=== PATIENT | male | born 1975 | race Caucasian/White ===

== ENCOUNTER 2016-10-20 13:20 | Inpatient (IN) | payer BC ==
[2016-10-20] MEDS ORDERED: SODIUM CHLORIDE 0.9% 2,000 ML IV ONE (14:42)
[2016-10-20] MEDS ORDERED: KETOROLAC 30 MG/ML 1 ML VIAL IVP STA (14:42)
[2016-10-20] MEDS ORDERED: VANCOMYCIN 2,000 MG in SODIUM CHLORIDE 0.9% 500 ML IVPB STA (14:42)
[2016-10-20] MEDS ORDERED: IV VANCOMYCIN PER PHARMACY 1 EACH MISC MISCELLANE PRN (14:44)
--- NOTE | 2016-10-20 14:52 | ED ---
Upper Extremity HPI - General Chief Complaint: Extremity Injury, Upper Stated Complaint: hand swelling Time Seen by Provider: 10/20/16 14:22 Source: patient Mode of arrival: ambulatory Limitations: no limitations - History of Present Illness Initial Comments: Patient is a 41-year-old male who presents with a chief complaint of bilateral hand swelling, erythema, and skin cracking. Patient states that he has been dealing with this issue on and off for several months now. He cannot identify any trigger, he states that he has changed soaps, detergents, gloves, and moisturizers. Patient states that he has sharp, an achy pain in his bilateral hands. The swelling he states has been going on only today. He states that moving his hands, and manipulation of the skin make his symptoms worse. There are no alleviating factors. Timing is constant. Patient denies any IV drug use , or any history of skin infections. MD Complaint: Injury to:: left, right, hand Onset/Timin -: days(s) Other Extremity Injury: Hand: Left, Right (Patient has cracked skin that is erythematous, and warm to the touch.) Handedness: right Improves With: cold therapy Worsens With: movement of extremity - Related Data Home Medications Medication Instructions Recorded Confirmed No Known Home Medications [No 10/20/16 10/20/16 Known Home Medications] Allergies Allergy/AdvReac Type Severity Reaction Status Date / Time acetaminophen [From Lortab] Allergy Unknown Verified 10/20/16 14:54 hydrocodone [From Lortab] Allergy Rash/Hives Verified 10/20/16 14:54 Review of Systems ROS Statement: Those systems with pertinent positive or pertinent negative responses have been documented in the HPI. Patient denies any headache, dizziness, lightheadedness, visual changes, shortness of breath, chest pain, abdominal pain, nausea, vomiting, diarrhea, dysuria ROS Other: All systems not noted in ROS Statement are negative. Past Medical History Past Medical History: No Reported History History of Any Multi-Drug Resistant Organisms: None Reported Past Surgical History: Hernia Repair, Orthopedic Surgery Additional Past Surgical History / Comment(s): back surgery Past Psychological History: Depression Smoking Status: Former smoker Past Alcohol Use History: Rare Past Drug Use History: None Reported General Exam - General Exam Comments Initial Comments: Patient has pain, swelling, erythema, and skin cracks to the bilateral hands. Area of erythema is circumferential and extends just proximal to the wrists bilaterally. The left hand is more severe than the right. Patient has tenderness to palpation along the extensor tendon sheath. Limitations: no limitations General appearance: alert, in no apparent distress Head exam: Present: atraumatic, normocephalic Eye exam: Present: normal appearance ENT exam: Present: mucous membranes moist Neck exam: Present: normal inspection Respiratory exam: Present: normal lung sounds bilaterally Cardiovascular Exam: Present: regular rate, normal rhythm GI/Abdominal exam: Present: soft Rectal exam: Present: deferred Extremities exam: Present: other (Upper extremities as described above) Back exam: Present: normal inspection Neurological exam: Present: alert, oriented X3 Psychiatric exam: Present: normal affect, normal mood Skin exam: Present: erythema Course Vital Signs 10/20/16 10/20/16 10/20/16 13:24 15:17 16:41 Temperature 97.5 F L 97.3 F L Pulse Rate 82 74 72 Respiratory 18 16 16 Rate Blood Pressure 132/75 138/80 148/87 O2 Sat by Pulse 96 98 98 Oximetry Medical Decision Making - Medical Decision Making Patient presents with chief complaint bilateral hand swelling, erythema, and skin cracking. History and physical examination are concerning for tenosynovitis. We'll send basic labs, lactic, blood cultures. Patient was started on vancomycin and Rocephin. Patient will have bilateral upper extremity Dopplers. Plan to admit patient for IV antibiotics. Lab evaluation of this patient is unremarkable. Patient was started on antibiotics, at this point we are still pending bilateral ultrasound evaluation. I discussed this case with Dr. Espinoza who accepts admission of this patient for IV antibiotics, consult orthopedic surgery on-call. 4:35 PM Lab evaluation this patient is unremarkable. Left gases negative at 0.9. White blood cells are within normal limits. This time we are still waiting results of the upper extremity Doppler. Dr. Espinoza currently in the emergency department to examine the patient. 6:44 PM Upper extremity Dopplers did not show any evidence of acute DVT. This time patient remains stable, he is stable for transfer to the floor. Further management and orders per Dr. Espinoza. - Lab Data Result diagrams: 10/20/16 15:00 10/20/16 15:00 Lab Results 10/20/16 10/20/16 10/20/16 Range/Units 15:00 15:00 15:00 WBC 9.2 (3.8-10.6) k/uL RBC 4.88 (4.30-5.90) m/uL Hgb 15.1 (13.0-17.5) gm/dL Hct 42.7 (39.0-53.0) % MCV 87.7 (80.0-100.0) fL MCH 30.9 (25.0-35.0) pg MCHC 35.3 (31.0-37.0) g/dL RDW 13.0 (11.5-15.5) % Plt Count 333 (150-450) k/uL Neutrophils % 57 % Lymphocytes % 22 % Monocytes % 7 % Eosinophils % 11 % Basophils % 0 % Neutrophils # 5.3 (1.3-7.7) k/uL Lymphocytes # 2.0 (1.0-4.8) k/uL Monocytes # 0.6 (0-1.0) k/uL Eosinophils # 1.0 H (0-0.7) k/uL Basophils # 0.0 (0-0.2) k/uL Sodium 141 (137-145) mmol/L Potassium 4.1 (3.5-5.1) mmol/L Chloride 107 (98-107) mmol/L Carbon Dioxide 23 (22-30) mmol/L Anion Gap 11 mmol/L BUN 15 (9-20) mg/dL Creatinine 0.66 (0.66-1.25) mg/dL Est GFR (MDRD) Af Amer >60 (>60 ml/min/1.73 sqM) Est GFR (MDRD) Non-Af >60 (>60 ml/min/1.73 sqM) Glucose 85 (74-99) mg/dL Plasma Lactic Acid Kush[place] 0.9 (0.7-2.0) mmol/L Calcium 9.4 (8.4-10.2) mg/dL Disposition Clinical Impression: Tenosynovitis of hand Disposition: ADMITTED IP TO THIS HOSP Condition: Good Time of Disposition: 18:47 Decision to Admit Reason: Admit from [facility]
[2016-10-20 15:22] LABS: Basophils % (A) 0 %; CH 31.2; CHCM 35.8; Eosinophils % (A) 11 %; HCT 42.7 % (39.0-53.0); HDW 3.02; HGB 15.1 gm/dL (13.0-17.5); Luc # (Auto) 0.23; Luc % (Auto) 3; Lymphocytes % (A) 22 %; MCH 30.9 pg (25.0-35.0); MCHC 35.3 g/dL (31.0-37.0); MCV 87.7 fL (80.0-100.0); Monocytes # (A) 0.6 k/uL (0-1.0); Monocytes % (A) 7 %; Neutrophils # (A) 5.3 k/uL (1.3-7.7); Neutrophils % (A) 57 %; RBC 4.88 m/uL (4.30-5.90); WBC 9.2 k/uL (3.8-10.6); WBC (Perox) 8.87
[2016-10-20 15:29] LABS: Anion Gap 11 mmol/L; Blood Urea Nitrogen 15 mg/dL (9-20); Calcium 9.4 mg/dL (8.4-10.2); Carbon Dioxide 23 mmol/L (22-30); Chloride 107 mmol/L (98-107); Glucose 85 mg/dL (74-99); Non-African American GFR(MDRD) >60 (>60 ml/min/1.73 sqM); Potassium 4.1 mmol/L (3.5-5.1); Sodium 141 mmol/L (137-145)
[2016-10-20] MEDS ORDERED: NALOXONE 0.4 MG/ML 1 ML VIAL IV PRN (16:31)
--- NOTE | 2016-10-20 16:36 | US ---
EXAMINATION TYPE: US venous doppler duplex UE BI DATE OF EXAM: 10/20/2016 COMPARISON: NONE CLINICAL HISTORY: Pain. Left arm swelling x 1 day SIDE PERFORMED: bilateral Right Arm: No evidence of DVT Left Arm: No evidence of DVT IMPRESSION: No diagnostic evidence of DVT as visualized.
--- NOTE | 2016-10-20 17:36 | P.HPIM ---
History of Present Illness Patient is a 41-year-old male who presents with a chief complaint of bilateral hand swelling, erythema, and skin cracking. Patient states that he has been dealing with this issue on and off for several months now. All his symptoms started as [place] after which he started using gloves, topical cortisone cream and Aquaphor which led to skin breakdown in all the 5 fingertips in the left hand patient does have significant swelling in bilateral upper limbs extending from proximal forearm involving all the fingers. Does have redness and skin breakdown which peeled off without any bullous lesions or changes in the left 5 fingertips He cannot identify any trigger, he states that he has changed soaps , detergents, gloves, and moisturizers. Patient states that he has sharp, an achy pain in his bilateral hands. The swelling he states has been going on only today. He states that moving his hands, and manipulation of the skin make his symptoms worse. There are no alleviating factors. Timing is constant. Patient denies any IV drug use, or any history of skin infections. Review of Systems REVIEW OF SYSTEMS: CONSTITUTIONAL: No fever, no malaise, no fatigue. HEENT: No recent visual problems or hearing problems. Denied any sore throat. CARDIOVASCULAR: No chest pain, orthopnea, PND, no palpitations, no syncope. PULMONARY: No shortness of breath, no cough, no hemoptysis. GASTROINTESTINAL: No diarrhea, no nausea, no vomiting, no abdominal pain. Normoactive bowel sounds. NEUROLOGICAL: No headaches, no weakness, no numbness. HEMATOLOGICAL: Denies any bleeding or petechiae. GENITOURINARY: Denies any burning micturition, frequency, or urgency. MUSCULOSKELETAL/RHEUMATOLOGICAL: As mentioned in HPI ENDOCRINE: Denies any polyuria or polydipsia. The rest of the 14-point review of systems is negative. Past Medical History Past Medical History: No Reported History History of Any Multi-Drug Resistant Organisms: None Reported Past Surgical History: Hernia Repair, Orthopedic Surgery Additional Past Surgical History / Comment(s): back surgery Past Psychological History: Depression Smoking Status: Former smoker Past Alcohol Use History: Rare Past Drug Use History: None Reported Medications and Allergies Home Medications Medication Instructions Recorded Confirmed Type No Known Home Medications [No 10/20/16 10/20/16 History Known Home Medications] Allergies Allergy/AdvReac Type Severity Reaction Status Date / Time acetaminophen [From Lortab] Allergy Unknown Verified 10/20/16 14:54 hydrocodone [From Lortab] Allergy Rash/Hives Verified 10/20/16 14:54 Physical Exam Vitals: Vital Signs Temp Pulse Resp BP Pulse Ox 10/20/16 16:41 72 16 148/87 98 10/20/16 15:17 97.3 F L 74 16 138/80 98 10/20/16 13:24 97.5 F L 82 18 132/75 96 Intake and Output 10/20/16 10/20/16 10/20/16 06:59 14:59 22:59 Other: Weight 116.573 kg Patient Weight 10/21/16 06:59 Weight 116.573 kg PHYSICAL EXAMINATION: GENERAL: The patient is alert and oriented x3, not in any acute distress. Well developed, well nourished. HEENT: Pupils are round and equally reacting to light. EOMI. No scleral icterus. No conjunctival pallor. Normocephalic, atraumatic. No pharyngeal erythema. No thyromegaly. CARDIOVASCULAR: S1 and S2 present. No murmurs, rubs, or gallops. PULMONARY: Chest is clear to auscultation, no wheezing or crackles. ABDOMEN: Soft, nontender, nondistended, normoactive bowel sounds. No palpable organomegaly. MUSCULOSKELETAL: Mentioned in HPI. EXTREMITIES: No cyanosis, clubbing, or pedal edema. NEUROLOGICAL: Gross neurological examination did not reveal any focal deficits. SKIN: Mentioned in HPI Results CBC & Chem 7: 10/20/16 15:00 10/20/16 15:00 Labs: Abnormal Lab Results - Last 24 Hours (Table) 10/20/16 Range/Units 15:00 Eosinophils # 1.0 H (0-0.7) k/uL Assessment and Plan Plan: #1 possible tenosynovitis: Patient was started on anti-inflammatory medications arthritic surgery was consulted. #2 skin breakdown and possible cellulitis of the tips of 5 fingers on the left hand. Skin breakdown is probably secondary to chemicals like cortisone. Patient was started on vancomycin and infectious disease was consulted unfortunately we do not have any dermatology collection supervisor.
[2016-10-20] MEDS: KETOROLAC 30 MG/ML 1 ML VIAL IVP SCH ×2 (18:04→23:24)
--- NOTE | 2016-10-20 19:24 | P.CNOR ---
History of Present Illness - HPI Consult date: 10/20/16 History of present illness: This is a pleasant 41-year-old male who is admitted for tenosynovitis of bilateral hands. Patient states for the past 2 months he's had dry and cracking skin to the fingertips. Patient states he has treated this with several types of lotion and gloves and states in the morning the gloves have dried to his skin which causes re-injury to the skin when they are pulled off. Patient states this has never happened to him before. Patient states his hands and forearms have been very itchy. Patient states he's had weeping lesions on the hand as well. Patient states he never had any pain or swelling until today. Patient has also noticed that the itching has spread to his abdomen. This also has never happened before today. Patient confirms that he has some tingling to the fingers. Patient states he has difficulty making a fist with the left hand. Patient states the right hand is not in as much pain as the left. Patient states he went to urgent care when he noticed his left hand became very swollen and they sent him to the for evaluation. The EC admitted him for IV antibiotics. Dermatology and infectious disease consults are pending. Patient denies any fever, chills, IV drug use, history of MRSA or numbness in the hands. Patient states he does have pets at home but denies any cat bites or scratches. Review of Systems See HPI. Past Medical History Past Medical History: No Reported History History of Any Multi-Drug Resistant Organisms: None Reported Past Surgical History: Hernia Repair, Orthopedic Surgery Additional Past Surgical History / Comment(s): back surgery Past Psychological History: Depression Smoking Status: Former smoker Past Alcohol Use History: Rare Past Drug Use History: None Reported Medications and Allergies Home Medications Medication Instructions Recorded Confirmed Type No Known Home Medications [No 10/20/16 10/20/16 History Known Home Medications] Allergies Allergy/AdvReac Type Severity Reaction Status Date / Time acetaminophen [From Lortab] Allergy Unknown Verified 10/20/16 14:54 hydrocodone [From Lortab] Allergy Rash/Hives Verified 10/20/16 14:54 Physical Examination On inspection there is dry, cracked skin to the fingertips of the right and left hands. There are yellow crusty lesions to the volar aspect of the hand and fingertips. There are excoriations to bilateral hands and volar forearms. There is swelling to all of the fingers of the right and left hands extending to the mid forearms. The fingertips chriss. Left upper extremity is worse than the right. Bilateral hands are painful with active and passive range of motion. There is near full passive range of motion of the right upper extremity limited range of motion of the left hand. There is mild discomfort with range of motion of bilateral wrists. No pain with range of motion of the elbows bilaterally. Radial pulses are 2+ bilaterally. Sensation is intact. Results - Labs Labs: Abnormal Lab Results - Last 24 Hours (Table) 10/20/16 Range/Units 15:00 Eosinophils # 1.0 H (0-0.7) k/uL H & H 10/20/16 Range/Units 15:00 Hgb 15.1 (13.0-17.5) gm/dL Hct 42.7 (39.0-53.0) % Result Diagrams: 10/20/16 15:00 10/20/16 15:00 Assessment and Plan (1) Swelling of both hands Status: Acute (2) Pain in both hands Status: Acute Plan: 1. Continue IV antibiotics 2. Recommendations pending input from infectious disease and dermatology. 3. Will follow the patient closely. 4. No surgical intervention planned at this time.
[2016-10-20] MEDS: VANCOMYCIN 1,750 MG in SODIUM CHLORIDE 0.9% 250 ML IVPB SCH (23:25)
[2016-10-21] MEDS: KETOROLAC 30 MG/ML 1 ML VIAL IVP SCH ×4 (05:36→23:29)
[2016-10-21 07:28] LABS: Basophils # (A) 0.1 k/uL (0-0.2); Basophils % (A) 1 %; CH 31.1; CHCM 34.8; Eosinophils % (A) 13 %; HCT 42.7 % (39.0-53.0); HDW 3.01; HGB 14.8 gm/dL (13.0-17.5); Luc # (Auto) 0.16; Luc % (Auto) 2; Lymphocytes # (A) 1.2 k/uL (1.0-4.8); Lymphocytes % (A) 16 %; MCH 31.1 pg (25.0-35.0); MCHC 34.6 g/dL (31.0-37.0); MCV 89.9 fL (80.0-100.0); Mean Platelet Volume 6.9; Monocytes # (A) 0.4 k/uL (0-1.0); Monocytes % (A) 6 %; Neutrophils # (A) 4.6 k/uL (1.3-7.7); Neutrophils % (A) 62 %; RBC 4.75 m/uL (4.30-5.90); RDW 13.1 % (11.5-15.5); WBC 7.4 k/uL (3.8-10.6); WBC (Perox) 7.54
[2016-10-21] MEDS: VANCOMYCIN 1,750 MG in SODIUM CHLORIDE 0.9% 250 ML IVPB SCH ×2 (07:38→17:22)
[2016-10-21 07:51] LABS: Anion Gap 8 mmol/L; Blood Urea Nitrogen 12 mg/dL (9-20); Calcium 8.8 mg/dL (8.4-10.2); Carbon Dioxide 24 mmol/L (22-30); Chloride 108 mmol/L (98-107); Glucose 89 mg/dL (74-99); Non-African American GFR(MDRD) >60 (>60 ml/min/1.73 sqM); Sodium 140 mmol/L (137-145)
--- NOTE | 2016-10-21 08:41 | P.PN ---
Subjective Principal diagnosis: Swelling and erythema of bilateral hands This is a 41-year-old male was admitted for swelling of bilateral hands. Patient was seen and evaluated at [facility] with Dr. Gume Cuellar today. Patient states he has not noticed any improvement today and still has pain with range of motion of the right and left hands. Left hand is worse than right. Patient has no new complaints today. Patient denies fever/chills. Objective - Vital Signs Vital signs: Vital Signs Temp 97.6 F 10/21/16 03:19 Pulse 81 10/21/16 03:19 Resp 16 10/21/16 03:19 BP 127/70 10/21/16 03:19 Pulse Ox 97 10/21/16 03:19 Intake & Output 10/20/16 10/21/16 10/21/16 18:59 06:59 18:59 Intake Total 236 850 180 Output Total 500 Balance 236 350 180 Weight 116.573 kg Intake: Oral 236 850 180 Output: Urine 500 Other: # Voids 1 - Exam Bilateral hands with swelling extending to bilateral forearms. Crusting to all fingertips and volar aspects of hands. Excoriations to bilateral hands and volar forearms. Erythema to bilateral hands. Limited range of motion of the left hand. Range of motion of the right hand is limited but better than the left hand. Neurovascular status intact. - Labs CBC & Chem 7: 10/21/16 06:54 10/21/16 06:54 Labs: Abnormal Lab Results - Last 24 Hours (Table) 10/20/16 10/21/16 10/21/16 Range/Units 15:00 06:54 06:54 Eosinophils # 1.0 H 1.0 H (0-0.7) k/uL Chloride 108 H (98-107) mmol/L Creatinine 0.59 L (0.66-1.25) mg/dL Assessment and Plan (1) Swelling of both hands Status: Acute (2) Pain in both hands Status: Acute Plan: 1. Continue IV antibiotics 2. Recommendations pending input from infectious disease. 3. Will follow the patient closely. 4. No surgical intervention planned at this time.
[2016-10-21] MEDS ORDERED: traMADol 50 MG TAB PO PRN ×2 (09:51→09:55)
--- NOTE | 2016-10-21 18:36 | P.CONS ---
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 The patient relates that he's developed significant dry skin. He does have areas of patchy dry skin on his forearms and even his abdomen that have come and gone over time. He has no specific diagnosis. He was utilizing moisturizers and gloves to help with significant dryness to his hand. Even U Amanda combination of [id number] steroid cream and moisturizer. Reported admission he had tried this as before and when he took the glove off the material had tried and it was hand and he cussed significant injury to the skin with open wounds. He became painful and swollen with erythema. And because of his difficulty with utilizing his hand he did present to the walk-in clinic and with the extensive nature of the process in his left hand he was directed emergency center and has been admitted. He has been seen by orthopedics no plan for surgical intervention. And because of the abnormalities of the tissue with the infectious diseases consultation was requested. It is noted that dermatology was consulted but are not available. The patient is denying fevers chills rigors or sweats. He has discomfort at the site with good control with the ketorolac. He relates he's had intermittent difficulty with dry skin over the years. But this is far above the worst she's ever had. He is not able to make a fist because the hand is so swollen. It is quite uncomfortable. Review of Systems Pleasant 41-year-old male who is overweight but is comfortable. Does complain of the pain to his left hand. Also some pruritus to the forearms and abdominal wall HEENT:Denies headache or acute visual change. Denies sinus or mouth discomforts. Denies neck stiffness or pain. Denies significant oral cavity pain. Denies difficulty on swallowing. Lungs: Denies significant shortness of breath, cough, sputum production, or hemoptysis. Cardiovascular: Denies significant shortness of breath, chest pain, chest wall pain, orthopnea, dyspnea on exertion, syncope Gastrointestinal:Denies nausea, vomiting, diarrhea, constipation, hematemesis, melena, hematochezia. No no significant change of bowel habit noticed. Musculoskeletal: denies significant myalgias or arthralgias. No new joint swelling. Denies new back pain. Skin: D as per the HPI significant rash Neuro: Denies headache or visual change. Denies any new onset weakness or difficulty with ambulation. Denies falls or seizures. Psychiatric:Denies anxiety or depression. Endocrine: Denies significant fatigue, denies significant weight loss or weight gain. Past Medical History Past Medical History: No Reported History Additional Past Medical History / Comment(s): occ asthma flare ups, brobchitis History of Any Multi-Drug Resistant Organisms: None Reported Past Surgical History: Hernia Repair, Orthopedic Surgery Additional Past Surgical History / Comment(s): back surgery Past Anesthesia/Blood Transfusion Reactions: No Reported Reaction Additional Psychological History / Comment(s): . There is no family home with the and his children in the 6 cats. 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 No experience. No international travel. No current tobacco use it's been years since he smoked. Denies significant alcohol use. Denies recreational drug use or injection drug use. At work there's been no change of materials. He does not immerse hands and any chemicals or dyes. No change of materials at home. Parents are alive and well nobody has significant skin lesions Smoking Status: Former smoker - Past Family History Father Family Medical History: Hypertension Mother Family Medical History: Cancer, Hypertension Additional Family Medical History / Comment(s): UTERINE CANCER Medications and Allergies Home Medications and Allergies Comment(s): Current Medications Vancomycin HCl 1,750 mg/ (Sodium Chloride) 250 mls @ 125 mls/hr IVPB Q8HR [facility] Last Admin: 10/21/16 17:22 Dose: 125 mls/hr Ketorolac Tromethamine (Toradol) 30 mg IVP Q6HR MIKE Stop: 10/24/16 16:34 Last Admin: 10/21/16 17:23 Dose: 30 mg Miscellaneous Information (Vancomycin Trough Due) 1 each MISCELLANE ONCE ONE Stop: 10/22/16 07:01 Naloxone HCl (Narcan) 0.2 mg IV Q2M PRN PRN Reason: Opioid Reversal Tramadol HCl (Ultram) 50 mg PO QID PRN PRN Reason: Pain Scale 1 to 5 Last Admin: 10/21/16 10:00 Dose: 50 mg Tramadol HCl (Ultram) 100 mg PO QID PRN PRN Reason: Pain Scale 6 to 10 Home Medications Medication Instructions Recorded Confirmed Type No Known Home Medications [No 10/20/16 10/20/16 History Known Home Medications] Allergies Allergy/AdvReac Type Severity Reaction Status Date / Time acetaminophen [From Lortab] Allergy Unknown Verified 10/20/16 14:54 hydrocodone [From Lortab] Allergy Rash/Hives Verified 10/20/16 14:54 Physical Exam Vitals: Vital Signs Temp Pulse Pulse Resp BP Pulse Ox 10/21/16 13:52 98.6 F 72 16 121/67 96 10/21/16 07:00 98.0 F 86 18 133/73 96 10/21/16 03:19 97.6 F 81 16 127/70 97 10/20/16 20:10 97.6 F 72 17 151/87 97 Intake and Output 10/21/16 10/21/16 10/21/16 06:59 14:59 22:59 Intake Total 250 400 Balance 250 400 Intake: Oral 250 400 Other: # Voids 1 3 Very pleasant 41-year-old male who has an overweight build. He over is not in acute distress although does complain of some pain to the left hand area. HEENT: Anicteric conjunctiva are pink and moist nasal mucosa grossly intact without significant lesions, there is no thrush. Neck: The neck is supple without significant lymphadenopathy or thyromegaly. Lungs: Good bilateral air entry without significant crackles or wheezing. There is no significant bronchial sounds. There is no egophony or dullness. Heart: Regular rate and rhythm with an audible S1-S2, no S3 no S4. There is no significant murmur click or rub, PMI was nondisplaced. Abdomen: Positive bowel sounds soft and nontender without palpable masses or organomegaly. There was no guarding or rebound. Extremities: The right upper extremity has evidence of some minimal swelling to the right hand. There are no stiffing open lesions but the skin is somewhat dry. Does have a dry scaly type rash on the dorsum of the forearm. No open lesions are seen. There is no evidence of epitrochlear or axillary lymphadenopathy of either arm. The left arm is much more involved. The hand is swollen erythematous has evidence of significant breakdown of the skin on the palmar surface of the hand. There is some minimal drainage. The skin has a whitish discoloration in this area. Evidence of erythema to the dorsum of the hand. He is not able to make a fist due to the swelling. The forearm also has a bit of a dry scaly rash. No adenopathy is noted on the left arm or in other areas. The lower extremities are free from significant edema. The peripheral pulses were 2+ and symmetric. The skin does show evidence of this rash process on the forearms as well as abdominal wall it is pruritic. He is evidence of some dry skin on the right foot plantar surface with some skin cracking at the base of the third toe. There is no cellulitis or ascending erythema on either lower extremity. Neuro: Awake alert oriented to person place and time. There are no acute new gross focal sensory motor deficits. Results CBC & Chem 7: 10/21/16 06:54 10/21/16 06:54 Labs: Abnormal Lab Results - Last 24 Hours (Table) 10/21/16 10/21/16 Range/Units 06:54 06:54 Eosinophils # 1.0 H (0-0.7) k/uL Chloride 108 H (98-107) mmol/L Creatinine 0.59 L (0.66-1.25) mg/dL C Laboratory Results WBC 7.4 k/uL (3.8-10.6) 10/21/16 06:54 RBC 4.75 m/uL (4.30-5.90) 10/21/16 06:54 Hgb 14.8 gm/dL (13.0-17.5) 10/21/16 06:54 Hct 42.7 % (39.0-53.0) 10/21/16 06:54 MCV 89.9 fL (80.0-100.0) 10/21/16 06:54 MCH 31.1 pg (25.0-35.0) 10/21/16 06:54 MCHC 34.6 g/dL (31.0-37.0) 10/21/16 06:54 RDW 13.1 % (11.5-15.5) 10/21/16 06:54 Plt Count 283 k/uL (150-450) 10/21/16 06:54 Neutrophils % 62 % 10/21/16 06:54 Lymphocytes % 16 % 10/21/16 06:54 Monocytes % 6 % 10/21/16 06:54 Eosinophils % 13 % 10/21/16 06:54 Basophils % 1 % 10/21/16 06:54 Neutrophils # 4.6 k/uL (1.3-7.7) 10/21/16 06:54 Lymphocytes # 1.2 k/uL (1.0-4.8) 10/21/16 06:54 Monocytes # 0.4 k/uL (0-1.0) 10/21/16 06:54 Eosinophils # 1.0 k/uL (0-0.7) H 10/21/16 06:54 Basophils # 0.1 k/uL (0-0.2) 10/21/16 06:54 Sodium 140 mmol/L (137-145) 10/21/16 06:54 Potassium 4.0 mmol/L (3.5-5.1) 10/21/16 06:54 Chloride 108 mmol/L (98-107) H 10/21/16 06:54 Carbon Dioxide 24 mmol/L (22-30) 10/21/16 06:54 Anion Gap 8 mmol/L 10/21/16 06:54 BUN 12 mg/dL (9-20) 10/21/16 06:54 Creatinine 0.59 mg/dL (0.66-1.25) L 10/21/16 06:54 Est GFR (MDRD) Af Amer >60 (>60 ml/min/1.73 sqM) 10/21/16 06:54 Est GFR (MDRD) Non-Af >60 (>60 ml/min/1.73 sqM) 10/21/16 06:54 Glucose 89 mg/dL (74-99) 10/21/16 06:54 Plasma Lactic Acid Kushal 0.9 mmol/L (0.7-2.0) 10/20/16 15:00 Calcium 8.8 mg/dL (8.4-10.2) 10/21/16 06:54 Assessment and Plan (1) Hand dermatitis Status: Acute (2) Cellulitis of left hand Narrative/Plan: Pleasant 41-year-old male presents to Hospital with significant pain and swelling erythema to the left hand. Does have a history of some chronicity that did not respond to outpatient treatments of moisturization and topical steroids. He's had damage to the tissue of the hand and has resultant cellulitis. The patient does not have a known history of MRSA and we'll alter to high-dose cefazolin while cultures are pending. The patient likely has a progressively worsening dermatitis. And given the involvement of the forearms and abdomen more of a systemic concern. The blood work is benign. At this time treatment for underlying infected dermatitis will continue. Given the extensive nature some intravenous steroid will be given as well as intravenous fluconazole for now. Local care with the nystatin triamcinolone mixed will be utilized to the hands as well as to the right foot and to the rash on the forearms and abdomen. The pruritus is not the over riding symptom discomfort is much more significant left hand. Status: Acute
[2016-10-21] MEDS ORDERED: NYSTAT-TRIAMCIN 100,000-0.1 UNIT/GM-% OINT 30 GM TUBE TOPICAL SCH (18:45)
[2016-10-21] MEDS ORDERED: FLUCONAZOLE 100 MG TAB PO SCH (18:45)
[2016-10-21 19:28] LABS: C Reactive Protein 13.5 mg/L (<10.0)
[2016-10-21] MEDS: ceFAZolin 2 GM in SODIUM CHLORIDE 0.9% 100 ML IVPB SCH (19:52)
[2016-10-21] MEDS: TRIAMCINOLONE ACET 0.1% OINTMENT 15 GM TUBE TOPICAL SCH ×2 (19:52→21:59)
[2016-10-21] MEDS: methylPREDNISolone SOD SUCCI 40 MG/ML 1 ML VIAL IV SCH ×2 (19:52→23:29)
[2016-10-21] MEDS: NYSTATIN 100,000 UNIT/GM OINT 30 GM TUBE TOPICAL SCH ×2 (19:52→22:00)
[2016-10-21 20:47] LABS: Hemoglobin A1C 5.4 % (4.2-6.1)
[2016-10-22] MEDS: ceFAZolin 2 GM in SODIUM CHLORIDE 0.9% 100 ML IVPB SCH ×2 (00:01→07:13)
[2016-10-22 01:29] VITALS: RESP 16
[2016-10-22] MEDS: KETOROLAC 30 MG/ML 1 ML VIAL IVP SCH ×2 (05:07→11:31)
[2016-10-22] MEDS ORDERED: VANCOMYCIN TROUGH DUE 1 EACH MISC MISCELLANE ONE (07:00)
[2016-10-22] MEDS: methylPREDNISolone SOD SUCCI 40 MG/ML 1 ML VIAL IV SCH (07:13)
[2016-10-22] MEDS: TRIAMCINOLONE ACET 0.1% OINTMENT 15 GM TUBE TOPICAL SCH (07:14)
[2016-10-22] MEDS: NYSTATIN 100,000 UNIT/GM OINT 30 GM TUBE TOPICAL SCH (07:15)
--- NOTE | 2016-10-22 08:24 | P.PN ---
Subjective Principal diagnosis: Swelling and erythema of bilateral hands This is a 41-year-old male is admitted for swelling of bilateral hands. Patient states he has noticed improvement in range of motion of the left hand along with less pain and less swelling to bilateral hands. Patient states he has been up and walking in his room and denies any calf tenderness or swelling. Patient denies any numbness, weakness, tingling. Patient has no new complaints today. Patient denies fever/chills. Objective - Vital Signs Vital signs: Vital Signs Temp 98.2 F 10/22/16 01:28 Pulse 71 10/22/16 01:28 Resp 16 10/22/16 01:28 BP 122/69 10/22/16 01:28 Pulse Ox 93 L 10/22/16 01:28 Intake & Output 10/21/16 10/22/16 10/22/16 18:59 06:59 18:59 Intake Total 640 220 Output Total 500 Balance 140 220 Intake: Oral 640 220 Output: Urine 500 Other: Voiding Method Toilet # Voids 3 1 - Exam Bilateral hands with swelling extending to bilateral forearms that has slightly improved today. Crusting persists to all fingertips and volar aspects of hands. Excoriations to bilateral hands and volar forearms. Erythema to bilateral hands. Range of motion of the left hand is still limited but has improved since yesterday's exam. Range of motion of the right hand has improved as well. Neurovascular status intact. Radial pulses 2+ bilaterally. There is still a red, dry pruritic rash to the patient's abdomen. - Labs CBC & Chem 7: 10/21/16 06:54 10/21/16 06:54 Labs: Abnormal Lab Results - Last 24 Hours (Table) 10/21/16 Range/Units 06:54 C-Reactive Protein 13.5 H (<10.0) mg/L Microbiology - Last 24 Hours (Table) 10/20/16 17:25 Blood Culture - Preliminary Blood No Growth after 24 hours Assessment and Plan (1) Swelling of both hands Status: Acute (2) Pain in both hands Status: Acute Plan: 1. Continue IV antibiotics, IV steroids and topical creams per infectious disease. 2. Will continue to follow the patient closely. 3. No surgical intervention planned at this time.
[2016-10-22 13:44] VITALS: BP 140/65; PULSE 104; TEMP 97.5
--- NOTE | 2016-10-22 16:03 | P.PN ---
Subjective 41-year-old woman was admitted for a lateral upper limb swelling along with diffuse rash secondary to some kind of dermatitis etiology not clear along with skin breakdown in tip of all 5 fingers of the left hand leading to infection and cellulitis for which patient is presently on Keflex and patient is on systemic steroids for his rash in bilateral upper limb swelling patient was alert and infectious disease as well as orthopedic surgery. Objective - Vital Signs Vital signs: Vital Signs Temp 97.5 F L 10/22/16 13:43 Pulse 104 H 10/22/16 13:43 Resp 16 10/22/16 13:43 BP 140/65 10/22/16 13:43 Pulse Ox 91 L 10/22/16 13:43 Intake & Output 10/21/16 10/22/16 10/22/16 18:59 06:59 18:59 Intake Total 640 470 Output Total 500 Balance 140 470 Intake: Oral 640 470 Output: Urine 500 Other: Voiding Method Toilet # Voids 3 1 - Exam GENERAL: The patient is alert and oriented x3, not in any acute distress. Well developed, well nourished. HEENT: Pupils are round and equally reacting to light. EOMI. No scleral icterus. No conjunctival pallor. Normocephalic, atraumatic. No pharyngeal erythema. No thyromegaly. CARDIOVASCULAR: S1 and S2 present. No murmurs, rubs, or gallops. PULMONARY: Chest is clear to auscultation, no wheezing or crackles. ABDOMEN: Soft, nontender, nondistended, normoactive bowel sounds. No palpable organomegaly. MUSCULOSKELETAL: Mentioned in HPI. EXTREMITIES: No cyanosis, clubbing, or pedal edema. NEUROLOGICAL: Gross neurological examination did not reveal any focal deficits. SKIN: Mentioned in HPI - Labs CBC & Chem 7: 10/21/16 06:54 10/21/16 06:54 Labs: Abnormal Lab Results - Last 24 Hours (Table) 10/21/16 Range/Units 06:54 C-Reactive Protein 13.5 H (<10.0) mg/L Microbiology - Last 24 Hours (Table) 10/20/16 17:25 Blood Culture - Preliminary Blood No Growth after 24 hours Assessment and Plan Plan: #1 cellulitis of the left hand: Patient is an ceftezole and with significant improvement in his alertness. 2 possible dermatitis: Etiology is unclear. She will need out for patient need follow-up with dermatology For the obesity counseling was provided.
--- NOTE | 2016-10-22 16:05 | P.DS ---
Providers Date of admission: 10/20/16 16:31 Attending physician: Amarilys Espinoza Consults: 10/20/16 15:43 Consult Physician Routine Consulting Provider: Tonya Coon Consult Reason/Comments: tenosynovitis of the hand Do you want consulting provider notified?: Yes 10/20/16 17:33 Consult Physician Routine Consulting Provider: Angelica Hooks Consult Reason/Comments: tynosynovitis Do you want consulting provider notified?: Already Contacted Primary care physician: Marie Cervantes [facility] Course: 41-year-old woman was admitted for a lateral upper limb swelling along with diffuse rash secondary to some kind of dermatitis etiology not clear along with skin breakdown in tip of all 5 fingers of the left hand leading to infection and cellulitis for which patient is presently on Keflex and patient is on systemic steroids for his rash in bilateral upper limb swelling patient was alert and infectious disease as well as orthopedic surgery. Patient will be discharged today with antifungal, Keflex, Medrol Dosepak and follow with dermatology and infectious disease as an outpatient. Patient Condition at Discharge: Good Plan - Discharge Summary New Discharge Prescriptions: New Cephalexin [Keflex] 500 mg PO Q8HR #30 cap Fluconazole [Diflucan] 200 mg PO DAILY@1800 #10 tab methylPREDNISolone Dose Pack [Medrol Dose Pack] 4 mg PO DIRECTED #21 package Discharge Medication List Cephalexin [Keflex] 500 mg PO Q8HR #30 cap 10/22/16 [Rx] Fluconazole [Diflucan] 200 mg PO DAILY@1800 #10 tab 10/22/16 [Rx] methylPREDNISolone Dose Pack [Medrol Dose Pack] 4 mg PO DIRECTED #21 package 10/22/16 [Rx] Follow up Appointment(s)/Referral(s): Pete Figueroa MD [STAFF PHYSICIAN] - 1 Week Luke Griffin MD [STAFF PHYSICIAN] - 1 Week Marie Cervantes MD [Primary Care Provider] - 3 Days Activity/Diet/Wound Care/Special Instructions: Return to work no working with chemicals 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
== END 2016-10-22 14:45 | disposition home or self-care (01) | DRG 603 ==
LOC: EC 13:20 → 3SUR 16:31
PROVIDERS: ADMIT Internal Medicine; ATTEND Internal Medicine
DX: L03.114 Cellulitis of left upper limb (principal); F32.9 Major depressive disorder, single episode, unspecified; M65.9 Synovitis and tenosynovitis, unspecified; Z87.891 Personal history of nicotine dependence; L30.9 Dermatitis, unspecified; J45.909 Unspecified asthma, uncomplicated; E66.9 Obesity, unspecified; Z68.34 Body mass index [BMI] 34.0-34.9, adult; Z71.3 Dietary counseling and surveillance
CPT/HCPCS: 36415; 80048; 83036; 83605; 84134; 85025; 85652; 86038; 86140; 86780; 87040; 93970; 96361; 96365; 96375; 99284

== ENCOUNTER 2018-04-21 15:21 | Emergency (ER) | payer BC ==
[2018-04-21 15:27] VITALS: RESP 18; TEMP 98
[2018-04-21] MEDS ORDERED: KETOROLAC 30 MG/ML 1 ML VIAL IVP STA (15:38)
[2018-04-21 15:48] LABS: Basophils # (A) 0.1 k/uL (0-0.2); Basophils % (A) 1 %; Eosinophils # (A) 0.7 k/uL (0-0.7); Eosinophils % (A) 7 %; HCT 43.9 % (39.0-53.0); HGB 15.5 gm/dL (13.0-17.5); Lymphocytes % (A) 30 %; MCH 31.4 pg (25.0-35.0); MCHC 35.2 g/dL (31.0-37.0); Mean Platelet Volume 6.8; Monocytes # (A) 0.6 k/uL (0-1.0); Monocytes % (A) 6 %; Neutrophils # (A) 5.4 k/uL (1.3-7.7); Neutrophils % (A) 54 %; Platelet Count 341 k/uL (150-450); RBC 4.93 m/uL (4.30-5.90); RDW 13.2 % (11.5-15.5); WBC 9.9 k/uL (3.8-10.6)
[2018-04-21 15:58] LABS: ALT 41 U/L (21-72); AST 29 U/L (17-59); Albumin 4.4 g/dL (3.5-5.0); Alkaline Phosphatase 47 U/L (38-126); Amylase 72 U/L (30-110); Anion Gap 10 mmol/L; Blood Urea Nitrogen 14 mg/dL (9-20); Calcium 9.6 mg/dL (8.4-10.2); Carbon Dioxide 24 mmol/L (22-30); Chloride 106 mmol/L (98-107); Glucose 108 mg/dL (74-99); Lipase 183 U/L (23-300); Magnesium 1.7 mg/dL (1.6-2.3); Potassium 3.8 mmol/L (3.5-5.1); Sodium 140 mmol/L (137-145); Total Bilirubin 0.8 mg/dL (0.2-1.3); Total Protein 7.8 g/dL (6.3-8.2)
[2018-04-21 16:01] LABS: Creatine Kinase 219 U/L (55-170)
--- NOTE | 2018-04-21 16:05 | XR ---
EXAMINATION TYPE: XR chest 2V DATE OF EXAM: 04/21/2018 COMPARISON: NONE HISTORY: Chest pain with exertion TECHNIQUE: Frontal and lateral views of the chest are obtained. FINDINGS: There is no focal air space opacity, pleural effusion, or pneumothorax seen. The cardiac silhouette size is within normal limits. The osseous structures are intact. Minimal eventration rig ht hemidiaphragm. IMPRESSION: No acute cardiopulmonary process.
[2018-04-21 16:14] LABS: Creatine Kinase MB 2.2 ng/mL (0.0-2.4); D-Dimer 0.29 mg/L FEU (<0.60); Partial Thromboplastin Time 27.9 sec (22.0-30.0); Prothrombin Time 10.8 sec (9.0-12.0); Troponin I <0.012 ng/mL (0.000-0.034)
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
[2018-04-21 16:46] VITALS: BP 129/80; PULSE 72
== END 2018-04-21 16:47 | disposition home or self-care (01) ==
LOC: EC 15:21
DX: M94.0 Chondrocostal junction syndrome [Tietze] (principal); J45.909 Unspecified asthma, uncomplicated; Z79.899 Other long term (current) drug therapy; Z88.5 Allergy status to narcotic agent; Z88.6 Allergy status to analgesic agent; Z87.891 Personal history of nicotine dependence
CPT/HCPCS: 36415; 93005; 85379; 83880; 80053; 82150; 82550; 82553; 83690; 83735; 84484; 85025; 85610; 85730; 71046; 99285; 96374; J1885

== ENCOUNTER 2019-03-13 10:48 | Inpatient (IN) | payer BC ==
[2019-03-13] MEDS ORDERED: ALBUTEROL NEBULIZED 2.5 MG/3 ML INHALATION STA (10:54)
[2019-03-13] MEDS ORDERED: IPRATROPIUM 0.5 MG/2.5 ML NEBU INHALATION STA (10:55)
[2019-03-13] MEDS ORDERED: SODIUM CHLORIDE 0.9% 1,000 ML IV STA (10:56)
[2019-03-13] MEDS ORDERED: MAGNESIUM SULFATE-D5W PMX 1 GM in DEXTROSE/WATER 1 100ML.BAG IVPB STA (10:56)
[2019-03-13] MEDS ORDERED: methylPREDNISolone SOD SUCCI 125 MG/2 ML VIAL IV STA (10:56)
[2019-03-13] MEDS ORDERED: IBUPROFEN 600 MG TAB PO STA (10:59)
[2019-03-13] MEDS ORDERED: AZITHROMYCIN 500 MG in SODIUM CHLORIDE 0.9% 250 ML IVPB STA (11:01)
--- NOTE | 2019-03-13 11:12 | ED ---
SOB HPI - General Chief Complaint: Shortness of Breath Stated Complaint: Asthma attack, SOB Time Seen by Provider: 03/13/19 10:55 Source: EMS Mode of arrival: EMS Limitations: no limitations - History of Present Illness Initial Comments: The patient is a 43-year-old male with past medical history of mild intermittent asthma who presents to the emergency Department in respiratory distress. He reports that he has had 2 visits to an urgent care recently for cough and shortness of breath. The first time he was diagnosed with bronchitis and started on steroids. He then returned 2 days later and they initiated him on Keflex. He states he has been taking the medications as directed. He hasn't had any improvement. EMS arrived to find the patient saturating 77% on room air. He did provide him with 2 albuterol treatments and Atrovent treatment. They're only able to get him up to 88% on 4 L. He admits to chills without recorded fevers. Does not currently smoke. States he's never had an issue with his breathing before. He has never been on life support and normally does not have to come into the hospital for surgery distress. Denies any sick contacts. No recent travel. Denies any calf pain or swelling. No history of DVT or PE. Denies nausea or vomiting. No ripping or tearing sensation to his back. Admits to chest pressure without. There are no alleviating, precipitating or modifying factors - Related Data Home Medications Medication Instructions Recorded Confirmed Albuterol Inhaler [Ventolin Hfa 2 puff INHALATION RT-Q6H PRN 04/21/18 03/13/19 Inhaler] Albuterol Nebulized [Ventolin 2.5 mg INHALATION RT-TID PRN 04/21/18 03/13/19 Nebulized] Montelukast Sodium [Singulair] 10 mg PO HS 04/21/18 03/13/19 Benzonatate [Tessalon Perles] 100 mg PO TID PRN 03/13/19 03/13/19 Cephalexin [Keflex] 500 mg PO TID 03/13/19 03/13/19 Allergies Allergy/AdvReac Type Severity Reaction Status Date / Time hydrocodone [From Lortab] Allergy Rash/Hives Verified 03/13/19 11:58 Review of Systems ROS Statement: Those systems with pertinent positive or pertinent negative responses have been documented in the HPI. ROS Other: All systems not noted in ROS Statement are negative. Past Medical History Past Medical History: Asthma Additional Past Medical History / Comment(s): occ asthma flare ups, brobchitis History of Any Multi-Drug Resistant Organisms: None Reported Past Surgical History: Hernia Repair, Orthopedic Surgery Additional Past Surgical History / Comment(s): back surgery Past Anesthesia/Blood Transfusion Reactions: No Reported Reaction Past Psychological History: Depression Smoking Status: Former smoker Past Alcohol Use History: None Reported Past Drug Use History: None Reported - Past Family History Father Family Medical History: Hypertension Mother Family Medical History: Cancer, Hypertension Additional Family Medical History / Comment(s): UTERINE CANCER General Exam Limitations: no limitations General appearance: alert, in distress Head exam: Present: atraumatic, normocephalic Eye exam: Present: normal appearance, PERRL, EOMI. Absent: scleral icterus, conjunctival injection, periorbital swelling ENT exam: Present: normal exam, mucous membranes moist Respiratory exam: Present: respiratory distress, wheezes, accessory muscle use, decreased breath sounds, prolonged expiratory Cardiovascular Exam: Present: normal rhythm, tachycardia GI/Abdominal exam: Present: soft. Absent: distended, tenderness, guarding, rebound Extremities exam: Present: normal inspection, full ROM Back exam: Present: normal inspection, full ROM Neurological exam: Present: alert, oriented X3 Psychiatric exam: Present: normal affect, normal mood, anxious Skin exam: Present: warm, intact, diaphoretic Course Vital Signs 03/13/19 03/13/19 03/13/19 10:55 10:58 11:14 Temperature 101.6 F H Pulse Rate 131 H 130 H 133 H Pulse Rate [ Right Pulse Oximetery] Respiratory 28 H Rate Blood Pressure 116/92 Blood Pressure [Right Arm] O2 Sat by Pulse 91 L Oximetry 03/13/19 03/13/19 03/13/19 11:45 12:05 12:30 Temperature Pulse Rate 131 H 133 H 114 H Pulse Rate [ Right Pulse Oximetery] Respiratory 20 Rate Blood Pressure 129/105 Blood Pressure [Right Arm] O2 Sat by Pulse 95 Oximetry 03/13/19 03/13/19 03/13/19 13:00 13:30 14:00 Temperature Pulse Rate 114 H 103 H 99 Pulse Rate [ Right Pulse Oximetery] Respiratory Rate Blood Pressure 122/86 124/79 131/87 Blood Pressure [Right Arm] O2 Sat by Pulse 95 95 95 Oximetry 03/13/19 03/13/19 03/13/19 14:30 15:00 15:30 Temperature Pulse Rate 97 84 86 Pulse Rate [ Right Pulse Oximetery] Respiratory Rate Blood Pressure 123/90 124/85 132/92 Blood Pressure [Right Arm] O2 Sat by Pulse 94 L 95 95 Oximetry 03/13/19 03/13/19 03/13/19 15:42 15:54 16:00 Temperature 98.1 F Pulse Rate 82 87 Pulse Rate [ 84 Right Pulse Oximetery] Respiratory 20 20 Rate Blood Pressure Blood Pressure 109/66 [Right Arm] O2 Sat by Pulse 91 L Oximetry 03/13/19 16:10 Temperature 99.2 F Pulse Rate Pulse Rate [ Right Pulse Oximetery] Respiratory Rate Blood Pressure Blood Pressure [Right Arm] O2 Sat by Pulse Oximetry Medical Decision Making - Medical Decision Making Upon arrival the patient is placed into trauma bay 2. He is hooked up to ontinuous pulse ox and cardiac monitoring. Peripheral IV had been established by EMS. I did give him 125 mg of Solu-Medrol, 1 g of magnesium and a liter bolus of normal saline. Laboratory studies were conducted. The patient is placed on 15 mg of albuterol continuously. CBC shows white blood cell count 13.3. D-dimer elevated at 1.08, elevation in the patient's AST, ALC and alk phos. Influenza A and B are negative. Portable chest x-ray performed on the patient demonstrated bibasilar opacities. Chest CTA is performed because of elevated d-dimer which demonstrates no acute pulmonary embolism. Bibasilar consolidations. Cultures were obtained. The patient was given a dose of azithromycin and Rocephin. I did recommend hospital admission for the patient did agree. I called and discussed the case with Dr. Roth who accepted admission. I also called and discussed the case with Dr. Maria who does present to the emergency room to evaluate the patient. Patient remained in stable condi tion and was transported to the floor - Lab Data Result diagrams: 03/17/19 05:22 03/17/19 05:22 Lab Results 03/13/19 03/13/19 03/13/19 Range/Units 11:15 11:15 11:15 WBC 13.3 H (3.8-10.6) k/uL RBC 4.65 (4.30-5.90) m/uL Hgb 14.4 (13.0-17.5) gm/dL Hct 41.4 (39.0-53.0) % MCV 88.9 (80.0-100.0) fL MCH 30.9 (25.0-35.0) pg MCHC 34.8 (31.0-37.0) g/dL RDW 12.8 (11.5-15.5) % Plt Count 497 H (150-450) k/uL Neutrophils % 76 % Lymphocytes % 13 % Monocytes % 7 % Eosinophils % 2 % Basophils % 1 % Neutrophils # 10.0 H (1.3-7.7) k/uL Lymphocytes # 1.7 (1.0-4.8) k/uL Monocytes # 0.9 (0-1.0) k/uL Eosinophils # 0.2 (0-0.7) k/uL Basophils # 0.1 (0-0.2) k/uL PT 10.7 (9.0-12.0) sec INR 1.0 (<1.2) APTT 28.8 (22.0-30.0) sec D-Dimer 1.08 H (<0.60) mg/L FEU Sodium 137 (137-145) mmol/L Potassium 4.5 (3.5-5.1) mmol/L Chloride 100 (98-107) mmol/L Carbon Dioxide 26 (22-30) mmol/L Anion Gap 11 mmol/L BUN 8 L (9-20) mg/dL Creatinine 0.73 (0.66-1.25) mg/dL Est GFR (CKD-EPI)AfAm >90 (>60 ml/min/1.73 sqM) Est GFR (CKD-EPI)NonAf >90 (>60 ml/min/1.73 sqM) Glucose 124 H (74-99) mg/dL Plasma Lactic Acid Kushal (0.7-2.0) mmol/L Calcium 9.1 (8.4-10.2) mg/dL Magnesium 2.0 (1.6-2.3) mg/dL Total Bilirubin 1.0 (0.2-1.3) mg/dL AST 106 H (17-59) U/L ALT 139 H (21-72) U/L Alkaline Phosphatase 135 H (38-126) U/L NT-Pro-B Natriuret Pep pg/mL Total Protein 8.1 (6.3-8.2) g/dL Albumin 4.0 (3.5-5.0) g/dL Influenza Type A RNA (Not Detectd) Influenza Type B (PCR) (Not Detectd) 03/13/19 03/13/19 03/13/19 Range/Units 11:15 11:15 11:15 WBC (3.8-10.6) k/uL RBC (4.30-5.90) m/uL Hgb (13.0-17.5) gm/dL Hct (39.0-53.0) % MCV (80.0-100.0) fL MCH (25.0-35.0) pg MCHC (31.0-37.0) g/dL RDW (11.5-15.5) % Plt Count (150-450) k/uL Neutrophils % % Lymphocytes % % Monocytes % % Eosinophils % % Basophils % % Neutrophils # (1.3-7.7) k/uL Lymphocytes # (1.0-4.8) k/uL Monocytes # (0-1.0) k/uL Eosinophils # (0-0.7) k/uL Basophils # (0-0.2) k/uL PT (9.0-12.0) sec INR (<1.2) APTT (22.0-30.0) sec D-Dimer (<0.60) mg/L FEU Sodium (137-145) mmol/L Potassium (3.5-5.1) mmol/L Chloride (98-107) mmol/L Carbon Dioxide (22-30) mmol/L Anion Gap mmol/L BUN (9-20) mg/dL Creatinine (0.66-1.25) mg/dL Est GFR (CKD-EPI)AfAm (>60 ml/min/1.73 sqM) Est GFR (CKD-EPI)NonAf (>60 ml/min/1.73 sqM) Glucose (74-99) mg/dL Plasma Lactic Acid Kushal 1.9 (0.7-2.0) mmol/L Calcium (8.4-10.2) mg/dL Magnesium (1.6-2.3) mg/dL Total Bilirubin (0.2-1.3) mg/dL AST (17-59) U/L ALT (21-72) U/L Alkaline Phosphatase (38-126) U/L NT-Pro-B Natriuret Pep 25 pg/mL Total Protein (6.3-8.2) g/dL Albumin (3.5-5.0) g/dL Influenza Type A RNA Not Detected (Not Detectd) Influenza Type B (PCR) Not Detected (Not Detectd) - EKG Data EKG Comments: EKG demonstrates a sinus tachycardia with a ventricular rate of 131. ID interval 144. QRS 92. QTC 445. There are no acute ST segment elevations or depressions concerning for ischemic changes. No signs of [id number]-[id number] or Brugada syndrome Critical Care Time Critical Care Time: Yes Total Critical Care Time: 35 (minutes) Critical Care Time: Critical care time due to patients acute respiratory distress with need for BiPap, continuous albuterol treatments, consultation with pulmonology. Disposition Clinical Impression: Acute asthma exacerbation, Pneumonia, SIRS (systemic inflammatory response syndrome), Dependence on non-invasive ventilation Disposition: ADMITTED IP TO THIS HOSP Condition: Serious Is patient prescribed a controlled substance at d/c from ED?: No Decision to Admit Reason: Admit from EC Decision Date: 03/13/19 Decision Time: 14:49
[2019-03-13 11:44] LABS: Basophils # (A) 0.1 k/uL (0-0.2); Basophils % (A) 1 %; Eosinophils # (A) 0.2 k/uL (0-0.7); Eosinophils % (A) 2 %; HCT 41.4 % (39.0-53.0); HGB 14.4 gm/dL (13.0-17.5); Lymphocytes # (A) 1.7 k/uL (1.0-4.8); Lymphocytes % (A) 13 %; MCH 30.9 pg (25.0-35.0); MCHC 34.8 g/dL (31.0-37.0); MCV 88.9 fL (80.0-100.0); Monocytes # (A) 0.9 k/uL (0-1.0); Monocytes % (A) 7 %; Neutrophils % (A) 76 %; Platelet Count 497 k/uL (150-450); RBC 4.65 m/uL (4.30-5.90); RDW 12.8 % (11.5-15.5); WBC 13.3 k/uL (3.8-10.6)
[2019-03-13] MEDS: SODIUM CHLORIDE 0.9% 500 ML 500 ML IV SCH ×2 (11:51→12:00)
[2019-03-13 11:52] LABS: ALT 139 U/L (21-72); AST 106 U/L (17-59); African American GFR (CKD) >90 (>60 ml/min/1.73 sqM); Alkaline Phosphatase 135 U/L (38-126); Anion Gap 11 mmol/L; Blood Urea Nitrogen 8 mg/dL (9-20); Calcium 9.1 mg/dL (8.4-10.2); Carbon Dioxide 26 mmol/L (22-30); Chloride 100 mmol/L (98-107); Glucose 124 mg/dL (74-99); Non-African American GFR(CKD) >90 (>60 ml/min/1.73 sqM); Sodium 137 mmol/L (137-145); Total Protein 8.1 g/dL (6.3-8.2)
[2019-03-13 11:55] LABS: Potassium 4.5 mmol/L (3.5-5.1)
[2019-03-13 11:59] LABS: Partial Thromboplastin Time 28.8 sec (22.0-30.0); Prothrombin Time 10.7 sec (9.0-12.0)
[2019-03-13 12:11] LABS: D-Dimer 1.08 mg/L FEU (<0.60)
--- NOTE | 2019-03-13 12:27 | XR ---
EXAMINATION TYPE: XR chest 1V portable DATE OF EXAM: 03/13/2019 COMPARISON: 04/21/2018 HISTORY: Shortness of breath TECHNIQUE: Single frontal view of the chest is obtained. FINDINGS: There are low lung volumes present. Right basilar opacity obscures the hemidiaphragm. Patc hy left basilar opacity is also seen at the lateral left cardiac border near the hemidiaphragm. Cardi omediastinal silhouette is mildly enlarged. Osseous structures appear intact. IMPRESSION: Bibasilar opacities, right greater than left that may represent atelectasis or pneumonia . Overall hypoventilatory lungs.
--- NOTE | 2019-03-13 14:54 | CT ---
CT CHEST FOR PULMONARY EMBOLISM. EXAMINATION TYPE: CT chest angio for PE DATE OF EXAM: 03/13/2019 INDICATION: tachy, sob, elevated d-dimer CT DLP: 795.6 mGycm, Automated exposure control for dose reduction was used. CONTRAST: Patient injected with 100 mL of Isovue 370. COMPARISON: None TECHNIQUE: CT of the chest is performed on a spiral scan at 2 mm thick sections. Study is performed with intravenous contrast timed for evaluation for pulmonary embolism, which is suboptimal.. This wi ll limit additional portions of the evaluation. 3-D MIP images reconstructed by the technologist are reviewed on the computer in the coronal and sagittal planes. FINDINGS: No persistent filling defects are evident to suggest an acute pulmonary embolism. This however is [place] ited due to the timing of the contrast within the aorta. No aortic dissection is noted. No obvious ce ntral or smaller abrupt cut off signs within the pulmonary arteries are identified to suggest pulmona ry embolism. No mediastinal or hilar adenopathy enlarged by CT criteria is evident. The ascending aorta diameter at the level of the main pulmonary artery is 3.1 cm. The main pulmonary artery diameter at the bifur cation is cm. A peribronchial thickening is present diffusely. There are scattered areas of pneumonitis within the mid lungs. There are consolidations with air bronchograms within the bilateral lower lung mckeon and extending into the right middle lobe. Correlate for pneumonia or other infectious etiologies. Limited CT section through the upper abdomen. There is moderate fatty infiltration to the liver. Gall stones are noted. IMPRESSIONS: 1. No acute pulmonary embolism. Examination is limited however. 2. Bibasilar consolidations can be compatible with pneumonia. 3. Moderate fatty infiltration liver and cholelithiasis.
[2019-03-13] MEDS ORDERED: NALOXONE 0.4 MG/ML 1 ML VIAL IV PRN (15:11)
[2019-03-13] MEDS ORDERED: IBUPROFEN 400 MG TAB PO PRN (15:11)
[2019-03-13] MEDS: IPRATROPIUM-ALBUTEROL 3 ML NEB INHALATION SCH ×3 (15:42→23:40)
--- NOTE | 2019-03-13 15:44 | P.CNPUL ---
History of Present Illness Consult date: 03/13/19 Reason for consult: dyspnea, cough, pneumonia, obstructive sleep apnea Chief complaint: Shortness of breath cough and hypoxia History of present illness: Morbidly obese 43-year-old nonsmoker with history of chronic persistent asthma has been on nebulizer treatment and puffer as needed, patient has started having symptoms about a week to 10 days ago got sick with upper respiratory type of infection, went to urgent care will prescribe course of antibiotics and diagnosed as a viral infection subsequently was discharged patient did not get better. 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, no significant past medical history remotely used to smoke in the past, it was negative for pulmonary embolism, bilateral basal consolidation has been seen, patient is currently being supported with the BiPAP, spike a temperature up to 101.6 his LFTs are mildly elevated likely related to fatty liver with white cell count of 13,300, both influenza A and B are negative Review of Systems All systems: negative Past Medical History Past Medical History: Asthma Additional Past Medical History / Comment(s): occ asthma flare ups, brobchitis History of Any Multi-Drug Resistant Organisms: None Reported Past Surgical History: Hernia Repair, Orthopedic Surgery Additional Past Surgical History / Comment(s): back surgery Past Anesthesia/Blood Transfusion Reactions: No Reported Reaction Past Psychological History: Depression Smoking Status: Former smoker Past Alcohol Use History: None Reported Past Drug Use History: None Reported - Past Family History Father Family Medical History: Hypertension Mother Family Medical History: Cancer, Hypertension Additional Family Medical History / Comment(s): UTERINE CANCER Medications and Allergies Home Medications Medication Instructions Recorded Confirmed Type Albuterol Inhaler [Ventolin Hfa 2 puff INHALATION RT-Q6H PRN 04/21/18 03/13/19 History Inhaler] Albuterol Nebulized [Ventolin 2.5 mg INHALATION RT-TID PRN 04/21/18 03/13/19 History Nebulized] Montelukast Sodium [Singulair] 10 mg PO HS 04/21/18 03/13/19 History Benzonatate [Tessalon Perles] 100 mg PO TID PRN 03/13/19 03/13/19 History Cephalexin [Keflex] 500 mg PO TID 03/13/19 03/13/19 History Allergies Allergy/AdvReac Type Severity Reaction Status Date / Time hydrocodone [From Lortab] Allergy Rash/Hives Verified 03/13/19 11:58 Physical Exam Vitals: Vital Signs Temp Pulse Resp BP Pulse Ox 03/13/19 13:30 103 H 124/79 95 03/13/19 13:00 114 H 122/86 95 03/13/19 12:30 114 H 20 129/105 95 03/13/19 12:05 133 H 03/13/19 11:45 131 H 03/13/19 11:14 133 H 03/13/19 10:58 130 H 03/13/19 10:55 101.6 F H 131 H 28 H 116/92 91 L Intake and Output 03/13/19 03/13/19 03/13/19 06:59 14:59 22:59 Other: Weight 119.567 kg - Constitutional General appearance: disheveled, mild distress, morbidly obese - EENT Eyes: anicteric sclerae, EOMI, PERRLA, poor dentition, normal appearance Ears: bilateral: normal - Neck Neck: normal ROM Carotids: bilateral: upstroke normal Thyroid: bilateral: normal size - Respiratory Respiratory: bilateral: diminished, dullness, rales - Cardiovascular Rhythm: regular Heart sounds: normal: S1, S2 - Gastrointestinal General gastrointestinal: distended, normal bowel sounds, soft - Integumentary Integumentary: normal turgor - Neurologic Neurologic: CNII-XII intact - Musculoskeletal Musculoskeletal: gait normal, generalized weakness, strength equal bilaterally - Psychiatric Psychiatric: A&O x's 3, appropriate affect, intact judgment & insight Results - Laboratory Findings CBC and BMP: 03/13/19 11:15 03/13/19 11:15 PT/INR, D-dimer PT 10.7 sec (9.0-12.0) 03/13/19 11:15 INR 1.0 (<1.2) 03/13/19 11:15 D-Dimer 1.08 mg/L FEU (<0.60) H 03/13/19 11:15 Abnormal lab findings: Abnormal Labs 03/13/19 03/13/19 03/13/19 11:15 11:15 11:15 WBC 13.3 H Plt Count 497 H Neutrophils # 10.0 H D-Dimer 1.08 H BUN 8 L Glucose 124 H AST 106 H ALT 139 H Alkaline Phosphatase 135 H - Diagnostic Findings Chest x-ray: report reviewed, image reviewed CT scan - chest: report reviewed, image reviewed (Finding as noted above) Assessment and Plan Assessment: Acute hypoxic respiratory failure Bilateral pneumonia Severe sepsis Chronic persistent asthma moderate to severe category Possible sleep apnea and sleep disorder breathing Plan: Broad-spectrum antibiotics Bronchodilators IV steroids IPAP support in 1-2 days subsequently was weaned off to nasal cannula oxygen Sleep study as outpatient Sputum studies Other recommendations pending plan of care as per clinical response of the patient Time with Patient: Greater than 30
[2019-03-13] MEDS: methylPREDNISolone SOD SUCCI 40 MG/ML 1 ML VIAL IV SCH ×2 (18:09→23:25)
[2019-03-13] MEDS: MONTELUKAST 10 MG TAB PO SCH (19:56)
[2019-03-13] MEDS: BENZONATATE 100 MG CAP PO PRN (19:56)
[2019-03-13] MEDS ORDERED: ALPRAZolam 0.25 MG TAB PO PRN (20:12)
[2019-03-13] MEDS ORDERED: ACETAMINOPHEN TAB 500 MG TAB PO PRN (20:15)
[2019-03-13 20:27] LABS: Glucose,Whole Blood 165 mg/dL (75-99)
[2019-03-13] MEDS: BUDESONIDE 1 MG/2 ML NEBU INHALATION SCH (20:51)
[2019-03-13] MEDS: FORMOTEROL FUMARATE 20 MCG/2 ML NEBU INHALATION SCH (20:51)
--- NOTE | 2019-03-13 23:22 | HP ---
HISTORY AND PHYSICAL DATE OF SERVICE: 03/13/2019 CHIEF COMPLAINTS: Shortness of breath and cough and sputum. HISTORY OF PRESENT ILLNESS: This 43-year-old gentleman with a past medical history of chronic intermittent asthma, mild to moderate, with asthma flareups, history of bronchitis, history of DJD, history of depression, being followed by Dr. Cervantes in the outpatient setting, was not feeling well over the past one week to 10 days. The patient had apparently an upper respiratory infection and patient went to [facility] twice and was given Keflex and other antibiotics, inhalers, steroids. Because of lack of improvement, the patient came to [facility] today and was admitted for further evaluation and treatment. The pulse ox on admission was found to be 70%. Patient is severely hypoxic. A D-dimer was elevated. The patient also had a chest x-ray and CT scan. The patient has found to have bibasilar pneumonia. There is no evidence of pulmonary embolism. The patient was admitted for further evaluation and treatment. As mentioned earlier, initially BiPAP was tried, but subsequently with steroids and bronchodilators patient improved significantly. Patient is on high-flow nasal cannula at this time. There is no history of any fever, rigor or chills. No history of headache, loss of consciousness, seizures at this time. The patient is currently on [address] The [address] scan also showed hepatic steatosis as well as cholelithiasis. PAST MEDICAL HISTORY: History of asthma with minimal flareups and depression. HOME MEDICATIONS: 1. Singulair 10 mg at bedtime. 2. Keflex 500 mg t.i.d. 3. Tessalon Perles 100 mg t.i.d. p.r.n. 4. Ventolin 2.5 t.i.d. p.r.n. 5. Ventolin HFA 1-2 puffs q.6 p.r.n. ALLERGIES: LORTAB. FAMILY HISTORY: History of hypertension and uterine cancer in the family. SOCIAL HISTORY: History of occasional alcohol intake. Previous history of smoking. REVIEW OF SYSTEMS: ENT: No diminished hearing. No diminished vision. CARDIOVASCULAR SYSTEM: No angina, palpitations. RESPIRATORY SYSTEM: As mentioned earlier. GI: As mentioned earlier. : No dysuria or retention. NERVOUS SYSTEM: No numbness, weakness. ALLERGY/IMMUNOLOGY: As mentioned earlier. HEMATOLOGY/ONCOLOGY: No history of anemia. ENDOCRINE: No history of diabetes, hypothyroidism. CONSTITUTIONAL: As mentioned earlier. DERMATOLOGY: Negative. RHEUMATOLOGY: Negative. PSYCHIATRY: As mentioned earlier. PHYSICAL EXAMINATION: Patient is alert, oriented x3. Pulse 83, blood pressure 120/69, respiration 19. Patient is extremely short of breath. Temperature 97.4, pulse ox 91% on 5 L. HEENT: Conjunctivae normal. Oral mucosa moist. NECK: No jugular venous distention. No carotid bruit. No lymph node enlargement. Accessory muscles of respirations are acting. CARDIOVASCULAR SYSTEM: S1, S2 muffled. No S3. No S4. RESPIRATORY SYSTEM: Breath sounds diminished at the bases. Bilateral scattered rhonchi and prolonged expiratory wheezing also present. Crackles also present. ABDOMEN: Soft, nontender. No mass palpable. LEGS: No edema. No swelling. NERVOUS SYSTEM: Higher functions as mentioned earlier. Moves all 4 limbs. No focal motor or sensory deficit. LYMPHATICS: No lymph node palpable in neck, axillae or groin. JOINTS: No active deforming arthropathy. LABS: WBC 13.3 and D-dimer is 1.08. Glucose noted. AST 106, ALT is 136, alkaline phosphatase 135. ASSESSMENT: 1. Acute bronchial asthma, acute exacerbation, with bibasilar pneumonia, possibly Gram- negative, with acute hypoxic respiratory failure with possible sepsis, present on admission, status post BiPAP. 2. Elevated AST and ALT with mild hepatitis of undetermined origin. 3. Increased white count. 4. Increased platelets. 5. History of asthma. 6. History of depression. 7. Remote history of nicotine dependence. 8. Obesity with body mass index of 34.8. 9. FULL CODE. RECOMMENDATIONS AND DISCUSSION: In this 43-year-old gentleman who presented with multiple complex medical issues, at this time I recommend to continue the current medication, continue symptomatic treatment, continue intensive bronchodilator treatment, antibiotics. Pulmonary consultation. Obtain the cultures. IV steroids. Guarded prognosis because of multiple complex medical issues. Further recommendations to follow. A copy of this dictation is being forwarded to Dr. Cervantes, who is the primary physician. MMODL / IJN: [id number] /
[2019-03-13] MEDS: SODIUM CHLORIDE 0.9% 1,000 ML IV SCH (23:25)
[2019-03-13] MEDS: PANTOPRAZOLE 40 MG/10 ML VIAL IVP SCH (23:25)
[2019-03-13] MEDS: HEPARIN SODIUM,PORCINE 5,000 UNIT/ML 1 ML VIAL SQ SCH (23:26)
[2019-03-13] MEDS: INSULIN ASPART (NovoLOG) 100 UNIT/ML VIAL SQ SCH (23:26)
[2019-03-14] MEDS: IPRATROPIUM-ALBUTEROL 3 ML NEB INHALATION SCH ×5 (04:15→20:36)
[2019-03-14 06:18] LABS: Glucose,Whole Blood 143 mg/dL (75-99)
[2019-03-14] MEDS: INSULIN ASPART (NovoLOG) 100 UNIT/ML VIAL SQ SCH ×4 (06:38→21:03)
[2019-03-14 06:45] LABS: Basophils % (A) 0 %; Eosinophils % (A) 0 %; HGB 13.3 gm/dL (13.0-17.5); Lymphocytes # (A) 1.3 k/uL (1.0-4.8); Lymphocytes % (A) 8 %; MCH 30.6 pg (25.0-35.0); MCHC 34.1 g/dL (31.0-37.0); MCV 89.8 fL (80.0-100.0); Mean Platelet Volume 7.1; Monocytes # (A) 0.7 k/uL (0-1.0); Monocytes % (A) 5 %; Neutrophils # (A) 13.3 k/uL (1.3-7.7); Neutrophils % (A) 85 %; Platelet Count 510 k/uL (150-450); RBC 4.34 m/uL (4.30-5.90); RDW 12.9 % (11.5-15.5); WBC 15.5 k/uL (3.8-10.6)
[2019-03-14 07:07] LABS: ALT 100 U/L (21-72); AST 40 U/L (17-59); African American GFR (CKD) >90 (>60 ml/min/1.73 sqM); Albumin 3.3 g/dL (3.5-5.0); Alkaline Phosphatase 112 U/L (38-126); Anion Gap 8 mmol/L; Blood Urea Nitrogen 11 mg/dL (9-20); Calcium 8.7 mg/dL (8.4-10.2); Carbon Dioxide 25 mmol/L (22-30); Chloride 107 mmol/L (98-107); Glucose 135 mg/dL (74-99); Non-African American GFR(CKD) >90 (>60 ml/min/1.73 sqM); Potassium 4.4 mmol/L (3.5-5.1); Sodium 140 mmol/L (137-145); Total Bilirubin 0.6 mg/dL (0.2-1.3); Total Protein 6.9 g/dL (6.3-8.2)
[2019-03-14] MEDS: BUDESONIDE 1 MG/2 ML NEBU INHALATION SCH ×2 (08:05→20:36)
[2019-03-14] MEDS: FORMOTEROL FUMARATE 20 MCG/2 ML NEBU INHALATION SCH ×2 (08:05→20:36)
[2019-03-14] MEDS: HEPARIN SODIUM,PORCINE 5,000 UNIT/ML 1 ML VIAL SQ SCH ×2 (08:38→21:12)
[2019-03-14] MEDS: methylPREDNISolone SOD SUCCI 40 MG/ML 1 ML VIAL IV SCH ×3 (08:38→23:55)
[2019-03-14] MEDS: PANTOPRAZOLE 40 MG/10 ML VIAL IVP SCH (08:38)
[2019-03-14] MEDS: BENZONATATE 100 MG CAP PO PRN (08:39)
[2019-03-14] MEDS: MULTIVITAMINS, THERA 1 EACH TAB PO SCH (08:39)
[2019-03-14] MEDS: SODIUM CHLORIDE 0.9% 1,000 ML IV SCH (08:39)
[2019-03-14] MEDS ORDERED: AZITHROMYCIN 500 MG in SODIUM CHLORIDE 0.9% 250 ML IVPB SCH (09:00)
[2019-03-14 11:07] VITALS: BMI 34.6
[2019-03-14 11:51] LABS: Glucose,Whole Blood 124 mg/dL (75-99)
--- NOTE | 2019-03-14 14:55 | P.PN ---
Subjective Progress Note Date: 03/14/19 Principal diagnosis: Acute hypoxic respiratory failure Bilateral pneumonia Severe sepsis Chronic persistent asthma moderate to severe category Possible sleep apnea and sleep disorder breathing 03/14/2019, patient seen eval reexamined during the rounds still short of breath have declined use of BiPAP machine currently on high flow oxygen 6 L saturation stable 92% white cell count is 15,000 platelets and is 510,000 slowly improving in terms of antibiotics, blood cultures no growth so far sputum results are pending Morbidly obese 43-year-old nonsmoker with history of chronic persistent asthma has been on nebulizer treatment and puffer as needed, patient has started having symptoms about a week to 10 days ago got sick with upper respiratory type of infection, went to urgent care will prescribe course of antibiotics and diagnosed as a viral infection subsequently was discharged patient did not get better. 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, no significant past medical history remotely used to smoke in the past, it was negative for pulmonary embolism, bilateral basal consolidation has been seen, patient is currently being supported with the BiPAP, spike a temperature up to 101.6 his LFTs are mildly elevated likely related to fatty liver with white cell count of 13,300, both influenza A and B are negative Objective - Vital Signs Vital signs: Vital Signs Temp 96.9 F L 03/14/19 08:00 Pulse 86 03/14/19 12:00 Resp 27 H 03/14/19 03:40 BP 114/69 03/14/19 12:00 Pulse Ox 91 L 03/14/19 12:00 Intake & Output 03/13/19 03/14/19 03/14/19 18:59 06:59 18:59 Intake Total 240 720 Output Total 1200 600 Balance 240 -1200 120 Weight 119.567 kg 119 kg 119 kg Intake: Oral 240 720 Output: Urine 1200 600 Other: Voiding Method Urinal - Exam - Constitutional General appearance: disheveled, mild distress, morbidly obese - EENT Eyes: anicteric sclerae, EOMI, PERRLA, poor dentition, normal appearance Ears: bilateral: normal - Neck Neck: normal ROM Carotids: bilateral: upstroke normal Thyroid: bilateral: normal size - Respiratory Respiratory: bilateral: diminished, dullness, rales - Cardiovascular Rhythm: regular Heart sounds: normal: S1, S2 - Gastrointestinal General gastrointestinal: distended, normal bowel sounds, soft - Integumentary Integumentary: normal turgor - Neurologic Neurologic: CNII-XII intact - Musculoskeletal Musculoskeletal: gait normal, generalized weakness, strength equal bilaterally - Psychiatric Psychiatric: A&O x's 3, appropriate affect, intact judgment & insight - Labs CBC & Chem 7: 03/14/19 06:13 03/14/19 06:13 Labs: Abnormal Lab Results - Last 24 Hours (Table) 03/13/19 03/14/19 03/14/19 Range/Units 20:25 06:13 06:13 WBC 15.5 H (3.8-10.6) k/uL Plt Count 510 H (150-450) k/uL Neutrophils # 13.3 H (1.3-7.7) k/uL Creatinine 0.60 L (0.66-1.25) mg/dL Glucose 135 H (74-99) mg/dL POC Glucose (mg/dL) 165 H (75-99) mg/dL ALT 100 H (21-72) U/L Albumin 3.3 L (3.5-5.0) g/dL 03/14/19 03/14/19 Range/Units 06:16 11:48 WBC (3.8-10.6) k/uL Plt Count (150-450) k/uL Neutrophils # (1.3-7.7) k/uL Creatinine (0.66-1.25) mg/dL Glucose (74-99) mg/dL POC Glucose (mg/dL) 143 H 124 H (75-99) mg/dL ALT (21-72) U/L Albumin (3.5-5.0) g/dL Microbiology - Last 24 Hours (Table) 03/13/19 11:15 Blood Culture - Preliminary Blood No Growth after 24 hours Assessment and Plan Assessment: Acute hypoxic respiratory failure Bilateral pneumonia Severe sepsis Chronic persistent asthma moderate to severe category Possible sleep apnea and sleep disorder breathing Plan: Broad-spectrum antibiotics Bronchodilators IV steroids IPAP support in 1-2 days subsequently was weaned off to nasal cannula oxygen Sleep study as outpatient Sputum studies Other recommendations pending plan of care as per clinical response of the patient Time with Patient: Greater than 30
[2019-03-14 17:33] LABS: Glucose,Whole Blood 123 mg/dL (75-99)
[2019-03-14 20:36] LABS: Glucose,Whole Blood 127 mg/dL (75-99)
[2019-03-14] MEDS: MONTELUKAST 10 MG TAB PO SCH (21:12)
[2019-03-15] MEDS: IPRATROPIUM-ALBUTEROL 3 ML NEB INHALATION SCH ×7 (00:52→23:41)
--- NOTE | 2019-03-15 04:21 | P.PN ---
Subjective Progress Note Date: 03/14/19 Principal diagnosis: This is a 43 year old male who was recently admitted for shortness of breath and found to have bibasilar pneumonia and is being closely monitored. Patient was on the Bipap last night and was having a hard time with it and is currently off of the Bipap and now on 5L high flow via NC. Patient states that he feels quite short of breath still but better with the nasal cannula. Patient is being followed by Dr. Lebron as well. Review of Systems: Constitutional: Denied any fatigue denied any fever. Cardio vascular: denied any chest pain, palpitations Gastrointestinal: denied any nausea, vomiting : denied any dysuria or retention Pulmonary: Reports shortness of breath cough Neurologic denied any new focal deficits Active Medications Acetaminophen (Tylenol Tab) 500 mg PO Q6HR PRN Albuterol/Ipratropium (Duoneb 0.5 Mg-3 Mg/3 Ml Soln) 3 ml INHALATION RT-Q4H MIKE Alprazolam (Xanax) 0.25 mg PO TID PRN Azithromycin (Zithromax) 500 mg PO DAILY MIKE Benzonatate (Tessalon Perles) 100 mg PO TID PRN Budesonide (Pulmicort) 1 mg INHALATION RT-BID MIKE Formoterol Fumarate (Perforomist) 20 mcg INHALATION RT-BID MIKE Heparin Sodium (Porcine) (Heparin) 5,000 unit SQ Q12HR MIKE Ceftriaxone Sodium 2 gm/ (Sodium Chloride) 50 mls @ 100 mls/hr IVPB Q24HR MIKE Sodium Chloride (Saline 0.9%) 1,000 mls @ 75 mls/hr IV .[id number] MIKE Ibuprofen (Motrin) 400 mg PO Q6HR PRN Insulin Aspart (Novolog) 0 unit SQ ACHS MIKE; Protocol Methylprednisolone Sodium Succinate (Solu-Medrol) 40 mg IV Q8HR MIKE Montelukast Sodium (Singulair) 10 mg PO HS MIKE Multivitamins (Theragran) 1 each PO DAILY@1200 MIKE Naloxone HCl (Narcan) 0.2 mg IV Q2M PRN Pantoprazole Sodium (Protonix) 40 mg PO AC-BRKFST MIKE Objective - Vital Signs Vital signs: Vital Signs Temp 96.9 F L 03/14/19 08:00 Pulse 86 03/14/19 12:00 Resp 27 H 03/14/19 03:40 BP 114/69 03/14/19 12:00 Pulse Ox 91 L 03/14/19 12:00 Intake & Output 03/13/19 03/14/19 03/14/19 18:59 06:59 18:59 Intake Total 240 720 Output Total 1200 600 Balance 240 -1200 120 Weight 119.567 kg 119 kg 119 kg Intake: Oral 240 720 Output: Urine 1200 600 Other: Voiding Method Urinal - Exam GENERAL: The patient is alert and oriented x3, not in any acute distress. Well developed, well nourished. Temp is 96.9F, pulse is 86, resp are 20, blood pressure is 114/69, sp02 is 91% on 5L via NC HEENT: Pupils are round and equally reacting to light. EOMI. No scleral icterus. No conjunctival pallor. Normocephalic, atraumatic. No pharyngeal erythema. No thyromegaly. CARDIOVASCULAR: S1 and S2 are muffled. No murmurs, rubs, or gallops. PULMONARY: diminished breath sounds at the bases with bilateral scattered rhonchi and crackles noted. Expiratory wheezing present. ABDOMEN: Soft, obese, and non-tender. Right side abdominal hernia noted that is soft and palpable MUSCULOSKELETAL: No joint swelling or deformity. EXTREMITIES: No cyanosis, clubbing, or pedal edema. NEUROLOGICAL: Gross neurological examination did not reveal any focal deficits. SKIN: No rashes. - Labs CBC & Chem 7: 03/14/19 06:13 03/14/19 06:13 Labs: Abnormal Lab Results - Last 24 Hours (Table) 03/13/19 03/14/19 03/14/19 Range/Units 20:25 06:13 06:13 WBC 15.5 H (3.8-10.6) k/uL Plt Count 510 H (150-450) k/uL Neutrophils # 13.3 H (1.3-7.7) k/uL Creatinine 0.60 L (0.66-1.25) mg/dL Glucose 135 H (74-99) mg/dL POC Glucose (mg/dL) 165 H (75-99) mg/dL ALT 100 H (21-72) U/L Albumin 3.3 L (3.5-5.0) g/dL 03/14/19 03/14/19 Range/Units 06:16 11:48 WBC (3.8-10.6) k/uL Plt Count (150-450) k/uL Neutrophils # (1.3-7.7) k/uL Creatinine (0.66-1.25) mg/dL Glucose (74-99) mg/dL POC Glucose (mg/dL) 143 H 124 H (75-99) mg/dL ALT (21-72) U/L Albumin (3.5-5.0) g/dL Microbiology - Last 24 Hours (Table) 03/13/19 11:15 Blood Culture - Preliminary Blood No Growth after 24 hours Assessment and Plan Assessment: Acute bronchial asthma, acute exacerbation, with bibasilar pneumonia, possibly gram-negative, with acute hypoxic respiratory failure with possible sepsis, present on admission, status post BiPAP Elevated AST, and ALT with mild hepatitis of undetermined origin Increased WBC Increased platelets History of asthma history of depression Remote history of nicotine dependence Obesity with a body mass index of 34.8 Full code Recommendations and discussion: Recommend to continue current medications, management, and symptomatic treatm ent. Pulmonary is following closely. Patient is currently off of the Bipap and being maintained on high flow 5L via NC and will continue at this time. Patient will continue on IV and oral antibiotics along with IV steroids and bronchodilators at this time. Will continue to monitor closely. Guarded p rognosis. Further recommendations to follow.
[2019-03-15 06:10] LABS: Glucose,Whole Blood 133 mg/dL (75-99)
[2019-03-15] MEDS: PANTOPRAZOLE 40 MG TABLET PO SCH (06:30)
[2019-03-15] MEDS: INSULIN ASPART (NovoLOG) 100 UNIT/ML VIAL SQ SCH ×4 (06:30→20:15)
[2019-03-15] MEDS: SODIUM CHLORIDE 0.9% 1,000 ML IV SCH ×2 (06:31→12:22)
[2019-03-15 07:04] LABS: Basophils # (A) 0.1 k/uL (0-0.2); Basophils % (A) 0 %; Eosinophils % (A) 0 %; HCT 41.2 % (39.0-53.0); HGB 13.7 gm/dL (13.0-17.5); Lymphocytes # (A) 1.3 k/uL (1.0-4.8); Lymphocytes % (A) 7 %; MCH 30.6 pg (25.0-35.0); MCHC 33.3 g/dL (31.0-37.0); MCV 91.8 fL (80.0-100.0); Mean Platelet Volume 6.6; Monocytes # (A) 0.9 k/uL (0-1.0); Monocytes % (A) 5 %; Neutrophils # (A) 16.5 k/uL (1.3-7.7); Neutrophils % (A) 87 %; Platelet Count 565 k/uL (150-450); RBC 4.49 m/uL (4.30-5.90); RDW 12.9 % (11.5-15.5)
[2019-03-15 07:15] LABS: ALT 83 U/L (21-72); AST 35 U/L (17-59); African American GFR (CKD) >90 (>60 ml/min/1.73 sqM); Albumin 3.6 g/dL (3.5-5.0); Alkaline Phosphatase 100 U/L (38-126); Anion Gap 11 mmol/L; Blood Urea Nitrogen 14 mg/dL (9-20); Carbon Dioxide 24 mmol/L (22-30); Chloride 105 mmol/L (98-107); Glucose 130 mg/dL (74-99); Non-African American GFR(CKD) >90 (>60 ml/min/1.73 sqM); Potassium 4.2 mmol/L (3.5-5.1); Sodium 140 mmol/L (137-145); Total Bilirubin 0.7 mg/dL (0.2-1.3); Total Protein 7.5 g/dL (6.3-8.2)
[2019-03-15] MEDS: AZITHROMYCIN 500 MG TAB PO SCH (08:19)
[2019-03-15] MEDS: BENZONATATE 100 MG CAP PO PRN (08:19)
[2019-03-15] MEDS: MULTIVITAMINS, THERA 1 EACH TAB PO SCH (08:19)
[2019-03-15] MEDS: HEPARIN SODIUM,PORCINE 5,000 UNIT/ML 1 ML VIAL SQ SCH ×2 (08:19→20:15)
[2019-03-15] MEDS: methylPREDNISolone SOD SUCCI 40 MG/ML 1 ML VIAL IV SCH ×2 (08:19→15:22)
[2019-03-15] MEDS: FORMOTEROL FUMARATE 20 MCG/2 ML NEBU INHALATION SCH ×2 (08:30→21:29)
[2019-03-15] MEDS: BUDESONIDE 1 MG/2 ML NEBU INHALATION SCH ×2 (08:30→21:29)
[2019-03-15 12:03] LABS: Glucose,Whole Blood 157 mg/dL (75-99)
[2019-03-15 17:16] LABS: Glucose,Whole Blood 150 mg/dL (75-99)
--- NOTE | 2019-03-15 17:16 | XR ---
EXAMINATION TYPE: XR chest 1V portable DATE OF EXAM: 03/15/2019 COMPARISON: 03/13/2019 HISTORY: Pneumonia TECHNIQUE: Single frontal view of the chest is obtained. FINDINGS: Bilateral lower lobe infiltrate and small effusion stable. Heart size stable. No pneumotho rax. No overt failure. IMPRESSION: Stable bilateral lower lobe infiltrate.
[2019-03-15] MEDS: methylPREDNISolone SOD SUCCI 125 MG/2 ML VIAL IV SCH ×2 (17:21→23:47)
[2019-03-15 20:02] LABS: Glucose,Whole Blood 142 mg/dL (75-99)
--- NOTE | 2019-03-15 20:14 | PN ---
PROGRESS NOTE DATE OF SERVICE: 03/15/2019. This 43-year-old gentleman who was admitted with acute bronchial asthma, acute exacerbation with bilateral pneumonia also. The patient being closely monitored at this time. Dr. Lebron is following the patient closely. The patient is on broad- spectrum IV antibiotics. The patient has used BiPAP yesterday. The patient being closely monitored. High-flow nasal oxygen is also being used. The cultures are negative so far. PAST MEDICAL HISTORY: Reviewed. REVIEW OF SYSTEMS: Cardiovascular system as mentioned earlier. Respiratory: As mentioned earlier. GI no nausea or vomiting. : No dysuria or retention. Central nervous system: No numbness or weakness. CURRENT MEDICATIONS: Reviewed and include: 1. Tylenol 500 mg p.o. q.6h. 2. DuoNeb q.i.d. and p.r.n. 3. Xanax 0.5 t.i.d. 4. Zithromax 500 mg b.i.d. 5. Tessalon Perles. 6. Pulmicort 1 mg b.i.d. 7. Rocephin 1 to 2 g daily. 8. Perforomist 20 mcg b.i.d. 9. Heparin. 10.Motrin. 11.NovoLog. 12.Solu-Medrol 40 mg IV q.h.s. 13.Singulair 10 mg q.h.s. 14.Multivitamins. 15.Naloxone. 16.Protonix 40 mg. PHYSICAL EXAM: Patient is alert and oriented times three. Pulse 94, blood pressure 135/70, respiration 18, temperature 97.9. Pulse ox 91 percent on 5 L. HEENT: Conjunctivae normal. NECK: No JVD. CARDIOVASCULAR: S1, S2 muffled. RESPIRATORY SYSTEM: Breath sounds diminished at the bases. Scattered rhonchi and crackles. Expiratory wheezing also present. ABDOMEN: Soft, nontender. LEGS are no edema. No swelling. CENTRAL NERVOUS SYSTEM: No focal deficits. LABS: WBC 19, hemoglobin 13.7. Sodium 140, potassium 4.2. ASSESSMENT: 1. Bronchial asthma, acute exacerbation, with bibasilar pneumonia, possibly gram- negative with acute hypoxic respiratory failure with possible sepsis, present on admission, status post BiPAP. 2. Elevated AST/ALT with mild hepatitis of undetermined etiology possibly secondary to sepsis. 3. Increased WBC. 4. Increased platelets. 5. History of asthma. 6. History of depression. 7. Remote history of nicotine dependence. 8. Obesity with body mass of 34.8. 9. Increased random blood sugar. 10.Increased platelets. 11.Increased WBC. 12.FULL CODE. RECOMMENDATIONS AND DISCUSSION: This 43-year-old gentleman who presented with multiple complex medical issues, we will monitor the patient closely, continue the current medications, management and symptomatic treatment. Continue bronchodilators. Continue with antibiotics. I would continue with steroids also. Otherwise, we will stop the IV fluids. The patient is on a regular diet. testing is pending at this time. Continue with Rocephin and Zithromax. Monitor blood sugars closely. Guarded prognosis. Further recommendations to follow. MMODL / IJN: [id number] / ANITRA
[2019-03-15] MEDS: MONTELUKAST 10 MG TAB PO SCH (20:15)
[2019-03-16] MEDS: IPRATROPIUM-ALBUTEROL 3 ML NEB INHALATION SCH ×6 (03:35→23:25)
[2019-03-16 06:21] LABS: Glucose,Whole Blood 134 mg/dL (75-99)
[2019-03-16] MEDS: INSULIN ASPART (NovoLOG) 100 UNIT/ML VIAL SQ SCH ×4 (06:40→20:35)
[2019-03-16] MEDS: PANTOPRAZOLE 40 MG TABLET PO SCH (06:40)
[2019-03-16] MEDS: methylPREDNISolone SOD SUCCI 125 MG/2 ML VIAL IV SCH ×2 (06:40→12:05)
[2019-03-16 06:42] LABS: Basophils # (A) 0.1 k/uL (0-0.2); Basophils % (A) 0 %; Eosinophils % (A) 0 %; HCT 42.2 % (39.0-53.0); HGB 14.3 gm/dL (13.0-17.5); Lymphocytes # (A) 1.6 k/uL (1.0-4.8); Lymphocytes % (A) 7 %; MCH 30.8 pg (25.0-35.0); MCHC 33.9 g/dL (31.0-37.0); MCV 90.8 fL (80.0-100.0); Mean Platelet Volume 6.8; Monocytes # (A) 0.7 k/uL (0-1.0); Monocytes % (A) 3 %; Neutrophils # (A) 19.4 k/uL (1.3-7.7); Neutrophils % (A) 88 %; Platelet Count 554 k/uL (150-450); RBC 4.65 m/uL (4.30-5.90); RDW 12.9 % (11.5-15.5); WBC 22.1 k/uL (3.8-10.6)
[2019-03-16 06:54] LABS: ALT 76 U/L (21-72); AST 26 U/L (17-59); African American GFR (CKD) >90 (>60 ml/min/1.73 sqM); Albumin 3.9 g/dL (3.5-5.0); Alkaline Phosphatase 97 U/L (38-126); Anion Gap 10 mmol/L; Blood Urea Nitrogen 19 mg/dL (9-20); Calcium 9.5 mg/dL (8.4-10.2); Carbon Dioxide 25 mmol/L (22-30); Chloride 104 mmol/L (98-107); Glucose 136 mg/dL (74-99); Non-African American GFR(CKD) >90 (>60 ml/min/1.73 sqM); Potassium 5.2 mmol/L (3.5-5.1); Sodium 139 mmol/L (137-145); Total Bilirubin 0.6 mg/dL (0.2-1.3); Total Protein 7.8 g/dL (6.3-8.2)
[2019-03-16] MEDS: BUDESONIDE 1 MG/2 ML NEBU INHALATION SCH ×2 (08:35→20:20)
[2019-03-16] MEDS: FORMOTEROL FUMARATE 20 MCG/2 ML NEBU INHALATION SCH ×2 (08:35→20:20)
[2019-03-16] MEDS: AZITHROMYCIN 500 MG TAB PO SCH (09:29)
[2019-03-16] MEDS: HEPARIN SODIUM,PORCINE 5,000 UNIT/ML 1 ML VIAL SQ SCH ×2 (09:29→20:35)
[2019-03-16 11:48] LABS: Glucose,Whole Blood 140 mg/dL (75-99)
[2019-03-16] MEDS: MULTIVITAMINS, THERA 1 EACH TAB PO SCH (12:05)
--- NOTE | 2019-03-16 14:13 | P.PN ---
Subjective Progress Note Date: 03/16/19 Principal diagnosis: Acute hypoxic respiratory failure Bilateral pneumonia Severe sepsis Chronic persistent asthma moderate to severe category Possible sleep apnea and sleep disorder breathing 03/16/2019, patient seen eval examined during the rounds labs reviewed medications reviewed radiographic studies done today reviewed as well, patient is feeling slightly better but just getting to the bathroom from the bed get short of breath since very dyspneic, he remains on 6 L oxygen, chest x-ray showed bilateral stable infiltrate, white cell count is up to 22,100, likely due to high-dose steroid which we will taper it to 2 times a day 40 mg, continue bronchodilator 03/14/2019, patient seen eval reexamined during the rounds still short of breath have declined use of BiPAP machine currently on high flow oxygen 6 L saturation stable 92% white cell count is 15,000 platelets and is 510,000 slowly improving in terms of antibiotics, blood cultures no growth so far sputum results are pending Morbidly obese 43-year-old nonsmoker with history of chronic persistent asthma has been on nebulizer treatment and puffer as needed, patient has started having symptoms about a week to 10 days ago got sick with upper respiratory type of infection, went to urgent care will prescribe course of antibiotics and diagnosed as a viral infection subsequently was discharged patient did not get better. 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, no significant past medical history remotely used to smoke in the past, it was negative for pulmonary embolism, bilateral basal consolidation has been seen, patient is currently being supported with the BiPAP, spike a temperature up to 101.6 his LFTs are mildly elevated likely related to fatty liver with white cell count of 13,300, both influenza A and B are negative Objective - Vital Signs Vital signs: Vital Signs Temp 98.3 F 03/16/19 07:00 Pulse 88 03/16/19 11:45 Resp 18 03/16/19 07:00 BP 128/87 03/16/19 07:00 Pulse Ox 93 L 03/16/19 08:37 Intake & Output 03/15/19 03/16/19 03/16/19 18:59 06:59 18:59 Intake Total 1024 620 276 Output Total 2140 1810 725 Balance -7138 -4057 -918 Intake: IV 40 40 Invasive Line 1 40 40 Oral 1024 580 236 Output: Urine 2750 1810 725 Other: Voiding Method Urinal Urinal # Voids 1 1 - Exam - Constitutional General appearance: disheveled, mild distress, morbidly obese - EENT Eyes: anicteric sclerae, EOMI, PERRLA, poor dentition, normal appearance Ears: bilateral: normal - Neck Neck: normal ROM Carotids: bilateral: upstroke normal Thyroid: bilateral: normal size - Respiratory Respiratory: bilateral: diminished, dullness, rales - Cardiovascular Rhythm: regular Heart sounds: normal: S1, S2 - Gastrointestinal General gastrointestinal: distended, normal bowel sounds, soft - Integumentary Integumentary: normal turgor - Neurologic Neurologic: CNII-XII intact - Musculoskeletal Musculoskeletal: gait normal, generalized weakness, strength equal bilaterally - Psychiatric Psychiatric: A&O x's 3, appropriate affect, intact judgment & insight - Labs CBC & Chem 7: 03/16/19 06:20 03/16/19 06:20 Labs: Abnormal Lab Results - Last 24 Hours (Table) 03/15/19 03/15/19 03/16/19 Range/Units 17:14 20:01 06:20 WBC 22.1 H (3.8-10.6) k/uL Plt Count 554 H (150-450) k/uL Neutrophils # 19.4 H (1.3-7.7) k/uL Potassium (3.5-5.1) mmol/L Glucose (74-99) mg/dL POC Glucose (mg/dL) 150 H 142 H (75-99) mg/dL ALT (21-72) U/L 03/16/19 03/16/19 03/16/19 Range/Units 06:20 06:20 11:44 WBC (3.8-10.6) k/uL Plt Count (150-450) k/uL Neutrophils # (1.3-7.7) k/uL Potassium 5.2 H (3.5-5.1) mmol/L Glucose 136 H (74-99) mg/dL POC Glucose (mg/dL) 134 H 140 H (75-99) mg/dL ALT 76 H (21-72) U/L Microbiology - Last 24 Hours (Table) 12/05/19 11:15 Blood Culture - Preliminary Blood No Growth after 72 hours Assessment and Plan Assessment: Acute hypoxic respiratory failure Bilateral pneumonia Severe sepsis Chronic persistent asthma moderate to severe category Possible sleep apnea and sleep disorder breathing Leukocytosis likely from pneumonia as well as significant contribution from IV steroids Plan: Broad-spectrum antibiotics Bronchodilators IV steroids, we'll taper it down to 40 twice a day IPAP support in 1-2 days subsequently was weaned off to nasal cannula oxygen Sleep study as outpatient Sputum studies Other recommendations pending plan of care as per clinical response of the patient Time with Patient: Greater than 30
--- NOTE | 2019-03-16 17:04 | PN ---
PROGRESS NOTE DATE OF SERVICE: 03/16/2019 This 43-year-old gentleman was admitted with acute bronchial asthma, acute exacerbation, as well as bilateral pneumonia and possible sepsis and acute hypoxic respiratory failure. Still needs high-flow oxygen 6 L. Pulmonary is following the patient. Patient is on IV steroids and broad-spectrum IV antibiotics. WBC 22.2, potassium was 5.2 today. ALT was elevated to 76. The most recent chest x-ray which I personally reviewed showed still persistent bilateral pneumonia, consolidations. PAST MEDICAL HISTORY: Reviewed. REVIEW OF SYSTEMS: CARDIOVASCULAR: No angina or palpitations. RESPIRATION: As mentioned earlier. GI: As mentioned earlier. : No dysuria or hematuria. CENTRAL NERVOUS SYSTEM: No numbness or weakness. CURRENT MEDICATIONS: Reviewed and include: 1. Tylenol 500 mg q.6h. 2. DuoNeb q.i.d. and p.r.n. 3. Xanax 0.5 t.i.d. 4. Zithromax 500 mg p.o. daily. 5. Tessalon. 6. Pulmicort 1 mg b.i.d. 7. Rocephin 2 g IV daily. 8. Perforomist 20 g b.i.d. 9. Heparin 5000 subcu b.i.d. 10.Motrin 400 mg. 11.NovoLog. 12.Solu-Medrol 40 IV b.i.d. 13.Singulair 10 mg q.h.s. 14.Multivitamins 1 p.o. daily. 15.Narcan. 16.Protonix 40 mg p.o. daily. PHYSICAL EXAM: Patient is alert and oriented times three. Pulse 101. Blood pressure 128/87, respiration 18, temperature 98.3, pulse ox 98% on 6 L. HEENT: Conjunctivae normal. NECK: No jugular venous distention. CARDIOVASCULAR: S1, S2 muffled. RESPIRATORY: Breath sounds diminished in the bases. Bilateral scattered rhonchi and crackles. ABDOMEN: Soft, nontender. No mass palpable. LEGS: No edema. No swelling. NERVOUS SYSTEM: Higher functions as mentioned earlier. Moves all four limbs. No focal motor or sensory deficits. LYMPHATICS: No lymph nodes palpable in the neck, axilla or groin. SKIN: No ulcer, no rash and no bleeding. JOINTS: No active deforming arthropathy. LABS: WBC 22.1, hemoglobin 14.3, sodium 139, potassium 5.2, glucose 134. ASSESSMENT: 1. Bronchial asthma acute exacerbation, with bibasilar pneumonia possibly gram- negative with acute hypoxic respiratory failure with possible sepsis present on admission, status post BiPAP. 2. Elevated AST/ALT with mild hepatitis of undetermined etiology possibly secondary to sepsis. 3. Increased WBC. 4. Increased platelets. 5. History of asthma. 6. History of depression. 7. Remote history of nicotine dependence. 8. Obesity with body mass index of 34.8. 9. Increased random blood sugar. 10.Increased platelets. 11.Increased WBC. 12.FULL CODE. RECOMMENDATIONS AND DISCUSSION: In this 43-year-old gentleman who presented with multiple complex medical issues, we will monitor the patient closely, continue the current medications, continue symptomatic treatment. Continue with current bronchodilators. Otherwise continue with empiric antibiotics. Repeat labs. Prognosis extremely guarded. Patient on high-flow oxygen. Incentive spirometry. Guarded prognosis. Further recommendations to follow. Closely follow with Pulmonary. MMODL / IJN: [id number] /
[2019-03-16 17:47] LABS: Glucose,Whole Blood 132 mg/dL (75-99)
[2019-03-16 20:24] LABS: Glucose,Whole Blood 165 mg/dL (75-99)
[2019-03-16] MEDS: MONTELUKAST 10 MG TAB PO SCH (20:35)
[2019-03-16] MEDS: methylPREDNISolone SOD SUCCI 40 MG/ML 1 ML VIAL IV SCH (20:36)
[2019-03-17] MEDS: IPRATROPIUM-ALBUTEROL 3 ML NEB INHALATION SCH ×5 (03:22→19:37)
[2019-03-17 06:03] LABS: Glucose,Whole Blood 116 mg/dL (75-99)
[2019-03-17 06:03] LABS: Basophils # (A) 0.2 k/uL (0-0.2); Basophils % (A) 1 %; Eosinophils % (A) 0 %; HCT 42.6 % (39.0-53.0); HGB 14.2 gm/dL (13.0-17.5); Lymphocytes # (A) 1.9 k/uL (1.0-4.8); Lymphocytes % (A) 8 %; MCH 30.6 pg (25.0-35.0); MCHC 33.4 g/dL (31.0-37.0); MCV 91.4 fL (80.0-100.0); Mean Platelet Volume 6.1; Monocytes % (A) 4 %; Neutrophils # (A) 18.7 k/uL (1.3-7.7); Neutrophils % (A) 84 %; Platelet Count 557 k/uL (150-450); RBC 4.66 m/uL (4.30-5.90); RDW 12.9 % (11.5-15.5); WBC 22.2 k/uL (3.8-10.6)
[2019-03-17] MEDS: INSULIN ASPART (NovoLOG) 100 UNIT/ML VIAL SQ SCH ×4 (06:19→20:59)
[2019-03-17] MEDS: PANTOPRAZOLE 40 MG TABLET PO SCH (06:19)
[2019-03-17 06:23] LABS: African American GFR (CKD) >90 (>60 ml/min/1.73 sqM); Anion Gap 10 mmol/L; Blood Urea Nitrogen 21 mg/dL (9-20); Calcium 9.1 mg/dL (8.4-10.2); Carbon Dioxide 23 mmol/L (22-30); Chloride 103 mmol/L (98-107); Glucose 121 mg/dL (74-99); Non-African American GFR(CKD) >90 (>60 ml/min/1.73 sqM); Potassium 4.8 mmol/L (3.5-5.1); Sodium 136 mmol/L (137-145)
[2019-03-17] MEDS: BUDESONIDE 1 MG/2 ML NEBU INHALATION SCH ×2 (07:07→19:37)
[2019-03-17] MEDS: FORMOTEROL FUMARATE 20 MCG/2 ML NEBU INHALATION SCH ×2 (07:07→19:37)
[2019-03-17] MEDS: HEPARIN SODIUM,PORCINE 5,000 UNIT/ML 1 ML VIAL SQ SCH ×2 (09:06→21:02)
[2019-03-17] MEDS: methylPREDNISolone SOD SUCCI 40 MG/ML 1 ML VIAL IV SCH ×2 (09:06→21:02)
[2019-03-17] MEDS: AZITHROMYCIN 500 MG TAB PO SCH (09:06)
--- NOTE | 2019-03-17 11:54 | P.PN ---
Subjective This is a pleasant 43 years old male with past medical history of asthma, presents with acute dyspnea and found to be in acute asthma exacerbation, his been evaluated by boots and shoes supervisor and he was started on Solu-Medrol as well as antibiotics in the form of Zithromax and ceftriaxone for bilateral basal pneumonia versus acute purulent tracheobronchitis, or both. Patient is still have some dyspnea, he still has dry cough with difficulty breathing. However he denies chest pain. No swallowing difficulty. No abdominal pain for example no right upper quadrant abdominal pain or tenderness. No change in bowel habits. No urinary complaints. Saturating 90% on 5 L oxygen via nasal cannula. His respiratory rate is around 22 per Minutes. And he has persistent leukocytosis 22k. Sugar is controlled. Objective - Vital Signs Vital signs: Vital Signs Temp 98.1 F 03/17/19 08:00 Pulse 84 03/17/19 11:12 Resp 20 03/17/19 08:00 BP 120/70 03/17/19 08:00 Pulse Ox 90 L 03/17/19 08:00 Intake & Output 03/16/19 03/17/19 03/17/19 18:59 06:59 18:59 Intake Total 776 536 290 Output Total 725 1680 900 Balance 51 -5527 -690 Intake: IV 60 60 50 Invasive Line 1 60 60 cefTRIAXone 2 gm In 50 Sodium Chloride 0.9% 50 ml @ 100 mls/hr IVPB Q24HR [facility] Rx#:[id number] Oral 716 476 240 Output: Urine 725 1680 900 Other: Voiding Method Urinal Urinal # Voids 1 - Exam GENERAL: The patient is alert and oriented x3, not in any acute distress. Well developed, well nourished. HEENT: Pupils are round and equally reacting to light. EOMI. No scleral icterus. No conjunctival pallor. Normocephalic, atraumatic. No pharyngeal erythema. No thyromegaly. CARDIOVASCULAR: S1 and S2 present. No murmurs, rubs, or gallops. -PULMONARY: Chest is clear to auscultation, no bilateral scattered wheezing ABDOMEN: Soft, nontender, nondistended, normoactive bowel sounds. No palpable organomegaly. MUSCULOSKELETAL: No joint swelling or deformity. EXTREMITIES: No cyanosis, clubbing, or pedal edema. NEUROLOGICAL: Gross neurological examination did not reveal any focal deficits. SKIN: No rashes. no petechiae. - Labs CBC & Chem 7: 03/17/19 05:22 03/17/19 05:22 Labs: Abnormal Lab Results - Last 24 Hours (Table) 03/13/19 03/16/19 03/16/19 Range/Units 20:59 11:44 17:45 WBC (3.8-10.6) k/uL Plt Count (150-450) k/uL Neutrophils # (1.3-7.7) k/uL Sodium (137-145) mmol/L BUN (9-20) mg/dL Glucose (74-99) mg/dL POC Glucose (mg/dL) 140 H 132 H (75-99) mg/dL Mycoplasma pneumon IgM 4.57 H (<=0.90) INDEX 03/16/19 03/17/19 03/17/19 Range/Units 20:21 05:22 05:22 WBC 22.2 H (3.8-10.6) k/uL Plt Count 557 H (150-450) k/uL Neutrophils # 18.7 H (1.3-7.7) k/uL Sodium 136 L (137-145) mmol/L BUN 21 H (9-20) mg/dL Glucose 121 H (74-99) mg/dL POC Glucose (mg/dL) 165 H (75-99) mg/dL Mycoplasma pneumon IgM (<=0.90) INDEX 03/17/19 Range/Units 06:02 WBC (3.8-10.6) k/uL Plt Count (150-450) k/uL Neutrophils # (1.3-7.7) k/uL Sodium (137-145) mmol/L BUN (9-20) mg/dL Glucose (74-99) mg/dL POC Glucose (mg/dL) 116 H (75-99) mg/dL Mycoplasma pneumon IgM (<=0.90) INDEX Microbiology - Last 24 Hours (Table) 03/13/19 11:15 Blood Culture - Preliminary Blood No Growth after 72 hours Assessment and Plan Assessment: Acute asthma exacerbation Bilateral basal pneumonia and acute tracheal bronchitis sepsis secondary to above Acute hypoxic respiratory failure Possible sleep apnea, need outpatient follow-up Service syndrome, present on admission with fever and leukocytosis Leukocytosis Mildly elevated liver enzymes secondary to fatty liver and gallstones disease Plan: This is a pleasant 43 years old male who presents with acute asthma exacerbation and bilateral pneumonia. Continue with antibiotics. Continue with steroids, continue with bronchodilator. Follow-up recommendation by boots and shoes supervisor. Labs and medication were reviewed.. Continue same treatment. Continue with symptomatic treatment. Resume home medication. Monitor lytes and vitals. DVT and GI prophylaxis. Further recommendations of the clinical course of the patient DVT prophylaxis: Subcutaneous heparin GI Prophylaxis: Protonix Prognosis is guarded
[2019-03-17 11:57] LABS: Glucose,Whole Blood 143 mg/dL (75-99)
[2019-03-17] MEDS: MULTIVITAMINS, THERA 1 EACH TAB PO SCH (12:15)
--- NOTE | 2019-03-17 13:06 | P.PN ---
Subjective Progress Note Date: 03/17/19 Principal diagnosis: Acute hypoxic respiratory failure Bilateral pneumonia Severe sepsis Chronic persistent asthma moderate to severe category Possible sleep apnea and sleep disorder breathing 03/17/2019, patient seen eval reexamined during the rounds his shortness of breath slightly better cough and the sputum continued to improve slowly but still get short of breath and minimal activity and exertion, his oxygen requirement is down to 5 L, afebrile, remains stable 22,000 sodium stable 136 potassium is down to 4.8 03/16/2019, patient seen eval examined during the rounds labs reviewed medications reviewed radiographic studies done today reviewed as well, patient is feeling slightly better but just getting to the bathroom from the bed get short of breath since very dyspneic, he remains on 6 L oxygen, chest x-ray showed bilateral stable infiltrate, white cell count is up to 22,100, likely due to high-dose steroid which we will taper it to 2 times a day 40 mg, continue bronchodilator 03/14/2019, patient seen eval reexamined during the rounds still short of breath have declined use of BiPAP machine currently on high flow oxygen 6 L saturation stable 92% white cell count is 15,000 platelets and is 510,000 slowly improving in terms of antibiotics, blood cultures no growth so far sputum results are pending Morbidly obese 43-year-old nonsmoker with history of chronic persistent asthma has been on nebulizer treatment and puffer as needed, patient has started having symptoms about a week to 10 days ago got sick with upper respiratory type of infection, went to urgent care will prescribe course of antibiotics and diagnosed as a viral infection subsequently was discharged patient did not get better. 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, no significant past medical history remotely used to smoke in the past, it was negative for pulmonary embolism, bilateral basal consolidation has been seen, patient is currently being supported with the BiPAP, spike a temperature up to 101.6 his LFTs are mildly elevated likely related to fatty liver with white cell count of 13,300, both influenza A and B are negative Objective - Vital Signs Vital signs: Vital Signs Temp 98.1 F 03/17/19 08:00 Pulse 84 03/17/19 11:12 Resp 20 03/17/19 08:00 BP 120/70 12/09/19 08:00 Pulse Ox 90 L 03/17/19 08:00 Intake & Output 03/16/19 03/17/19 03/17/19 18:59 06:59 18:59 Intake Total 776 536 290 Output Total 725 1680 900 Balance 51 -1144 -610 Intake: IV 60 60 50 Invasive Line 1 60 60 cefTRIAXone 2 gm In 50 Sodium Chloride 0.9% 50 ml @ 100 mls/hr IVPB Q24HR [facility] Rx#:[id number] Oral 716 476 240 Output: Urine 725 1680 900 Other: Voiding Method Urinal Urinal # Voids 1 - Exam - Constitutional General appearance: disheveled, mild distress, morbidly obese - EENT Eyes: anicteric sclerae, EOMI, PERRLA, poor dentition, normal appearance Ears: bilateral: normal - Neck Neck: normal ROM Carotids: bilateral: upstroke normal Thyroid: bilateral: normal size - Respiratory Respiratory: bilateral: diminished, dullness, rales - Cardiovascular Rhythm: regular Heart sounds: normal: S1, S2 - Gastrointestinal General gastrointestinal: distended, normal bowel sounds, soft - Integumentary Integumentary: normal turgor - Neurologic Neurologic: CNII-XII intact - Musculoskeletal Musculoskeletal: gait normal, generalized weakness, strength equal bilaterally - Psychiatric Psychiatric: A&O x's 3, appropriate affect, intact judgment & insight - Labs CBC & Chem 7: 03/17/19 05:22 03/17/19 05:22 Labs: Abnormal Lab Results - Last 24 Hours (Table) 03/13/19 03/16/19 03/16/19 Range/Units 20:59 17:45 20:21 WBC (3.8-10.6) k/uL Plt Count (150-450) k/uL Neutrophils # (1.3-7.7) k/uL Sodium (137-145) mmol/L BUN (9-20) mg/dL Glucose (74-99) mg/dL POC Glucose (mg/dL) 132 H 165 H (75-99) mg/dL Mycoplasma pneumon IgM 4.57 H (<=0.90) INDEX 03/17/19 03/17/19 03/17/19 Range/Units 05:22 05:22 06:02 WBC 22.2 H (3.8-10.6) k/uL Plt Count 557 H (150-450) k/uL Neutrophils # 18.7 H (1.3-7.7) k/uL Sodium 136 L (137-145) mmol/L BUN 21 H (9-20) mg/dL Glucose 121 H (74-99) mg/dL POC Glucose (mg/dL) 116 H (75-99) mg/dL Mycoplasma pneumon IgM (<=0.90) INDEX 03/17/19 Range/Units 11:55 WBC (3.8-10.6) k/uL Plt Count (150-450) k/uL Neutrophils # (1.3-7.7) k/uL Sodium (137-145) mmol/L BUN (9-20) mg/dL Glucose (74-99) mg/dL POC Glucose (mg/dL) 143 H (75-99) mg/dL Mycoplasma pneumon IgM (<=0.90) INDEX Microbiology - Last 24 Hours (Table) 03/13/19 11:15 Blood Culture - Preliminary Blood No Growth after 72 hours Assessment and Plan Assessment: Acute hypoxic respiratory failure Bilateral pneumonia Severe sepsis Chronic persistent asthma moderate to severe category Possible sleep apnea and sleep disorder breathing Leukocytosis likely from pneumonia as well as significant contribution from IV steroids Plan: Broad-spectrum antibiotics Bronchodilators IV steroids, we'll continue 40 twice a day Sleep study as outpatient Sputum studies Other recommendations pending plan of care as per clinical response of the patient Time with Patient: Greater than 30
[2019-03-17 16:52] LABS: Glucose,Whole Blood 128 mg/dL (75-99)
[2019-03-17 20:58] LABS: Glucose,Whole Blood 115 mg/dL (75-99)
[2019-03-17] MEDS: MONTELUKAST 10 MG TAB PO SCH (21:02)
[2019-03-18] MEDS: IPRATROPIUM-ALBUTEROL 3 ML NEB INHALATION SCH ×6 (00:56→22:38)
[2019-03-18] MEDS: BUDESONIDE 1 MG/2 ML NEBU INHALATION SCH ×2 (07:05→22:38)
[2019-03-18] MEDS: FORMOTEROL FUMARATE 20 MCG/2 ML NEBU INHALATION SCH ×2 (07:05→22:38)
[2019-03-18 07:22] LABS: Glucose,Whole Blood 104 mg/dL (75-99)
[2019-03-18] MEDS: INSULIN ASPART (NovoLOG) 100 UNIT/ML VIAL SQ SCH ×4 (07:39→21:29)
[2019-03-18] MEDS: PANTOPRAZOLE 40 MG TABLET PO SCH (07:54)
[2019-03-18] MEDS: MULTIVITAMINS, THERA 1 EACH TAB PO SCH (07:54)
[2019-03-18] MEDS: methylPREDNISolone SOD SUCCI 40 MG/ML 1 ML VIAL IV SCH (07:55)
[2019-03-18] MEDS: HEPARIN SODIUM,PORCINE 5,000 UNIT/ML 1 ML VIAL SQ SCH ×2 (07:55→21:29)
[2019-03-18] MEDS: AZITHROMYCIN 500 MG TAB PO SCH (07:57)
[2019-03-18 09:00] LABS: HCT 44.6 % (39.0-53.0); HGB 15.1 gm/dL (13.0-17.5); MCH 31.1 pg (25.0-35.0); MCHC 33.8 g/dL (31.0-37.0); Mean Platelet Volume 6.7; Platelet Count 538 k/uL (150-450); RBC 4.85 m/uL (4.30-5.90); WBC 20.5 k/uL (3.8-10.6)
[2019-03-18 10:40] LABS: Band Neutrophils % 1 %; Eosinophils # (M) 0.21 k/uL (0-0.7); Lymphocytes # (M) 4.31 k/uL (1.0-4.8); Metamyelocytes # (M) 0.62 k/uL (0); Metamyelocytes % 3 %; Monocytes # (M) 0.82 k/uL (0-1.0); Myelocytes # (M) 0.41 k/uL (0); Myelocytes % 2 %; Neutrophils % (M) 70 %; Nucleated Red Blood Cells 0 /100 WBC (0-0); Total Cells Counted 200
--- NOTE | 2019-03-18 11:05 | P.PN ---
Subjective This is a pleasant 43 years old male with past medical history of asthma, presents with acute dyspnea and found to be in acute asthma exacerbation, his been evaluated by help desk manager and he was started on Solu-Medrol as well as antibiotics in the form of Zithromax and ceftriaxone for bilateral basal pneumonia versus acute purulent tracheobronchitis, or both. Patient is still have some dyspnea, he still has dry cough with difficulty breathing. However he denies chest pain. No swallowing difficulty. No abdominal pain for example no right upper quadrant abdominal pain or tenderness. No change in bowel habits. No urinary complaints. Saturating 90% on 5 L oxygen via nasal cannula. His respiratory rate is around 22 per Minutes. And he has persistent leukocytosis 22k. Sugar is controlled. 03/18/2019 Patient feels only slightly better distal shortness of breath with dry cough, on exam he still have decreased air entry with expiratory wheezing, he is still on 5 L oxygen via nasal cannula. Left atrial sewing persistent leukocytosis of 20.5 K however he isn't on steroids. Because patient is slowly improving. Going to increase his Solu-Medrol from 40 mg twice daily up to 60 mg 4 times daily, patient informed and he agrees. Objective - Vital Signs Vital signs: Vital Signs Temp 97.9 F 03/18/19 04:56 Pulse 88 03/18/19 07:29 Resp 18 03/18/19 04:56 BP 118/76 03/18/19 04:56 Pulse Ox 92 L 03/18/19 07:06 Intake & Output 03/17/19 03/18/19 03/18/19 18:59 06:59 18:59 Intake Total 770 500 500 Output Total 1999 Balance -1230 500 500 Intake: IV 50 cefTRIAXone 2 gm In 50 Sodium Chloride 0.9% 50 ml @ 100 mls/hr IVPB Q24HR [facility] Rx#:[id number] Oral 720 500 500 Output: Urine 2000 Other: Voiding Method Urinal Urinal Urinal # Voids 2 # Bowel Movements 0 0 - Exam GENERAL: The patient is alert and oriented x3, not in any acute distress. Well developed, well nourished. HEENT: Pupils are round and equally reacting to light. EOMI. No scleral icterus. No conjunctival pallor. Normocephalic, atraumatic. No pharyngeal erythema. No thyromegaly. CARDIOVASCULAR: S1 and S2 present. No murmurs, rubs, or gallops. -PULMONARY: Chest is clear to auscultation, bilateral scattered wheezing with decreased air entry in both sides ABDOMEN: Soft, nontender, nondistended, normoactive bowel sounds. No palpable organomegaly. MUSCULOSKELETAL: No joint swelling or deformity. EXTREMITIES: No cyanosis, clubbing, or pedal edema. NEUROLOGICAL: Gross neurological examination did not reveal any focal deficits. SKIN: No rashes. no petechiae. - Labs CBC & Chem 7: 03/18/19 08:30 03/17/19 05:22 Labs: Abnormal Lab Results - Last 24 Hours (Table) 03/17/19 03/17/19 03/17/19 Range/Units 11:55 16:33 20:56 WBC (3.8-10.6) k/uL Plt Count (150-450) k/uL Neutrophils # (Manual) (1.3-7.7) k/uL Metamyelocytes # (Man) (0) k/uL Myelocytes # (Manual) (0) k/uL POC Glucose (mg/dL) 143 H 128 H 115 H (75-99) mg/dL 03/18/19 03/18/19 Range/Units 07:01 08:30 WBC 20.5 H (3.8-10.6) k/uL Plt Count 538 H (150-450) k/uL Neutrophils # (Manual) 14.50 H (1.3-7.7) k/uL Metamyelocytes # (Man) 0.62 H (0) k/uL Myelocytes # (Manual) 0.41 H (0) k/uL POC Glucose (mg/dL) 104 H (75-99) mg/dL Microbiology - Last 24 Hours (Table) 03/13/19 11:15 Blood Culture - Preliminary Blood No Growth after 96 hours Assessment and Plan Assessment: Acute asthma exacerbation Bilateral basal pneumonia and acute tracheal bronchitis sepsis secondary to above Acute hypoxic respiratory failure Possible sleep apnea, need outpatient follow-up Service syndrome, present on admission with fever and leukocytosis Leukocytosis Mildly elevated liver enzymes secondary to fatty liver and gallstones disease Plan: This is a pleasant 43 years old male who presents with acute asthma exacerbation and bilateral pneumonia. Continue with antibiotics. Continue with steroids and increased dose as above, continue with bronchodilator. Follow-up recommendation by help desk manager. Labs and medication were reviewed.. Continue same treatment. Continue with symptomatic treatment. Resume home medication. Monitor lytes and vitals. DVT and GI prophylaxis. Further recommendations of the clinical course of the patient DVT prophylaxis: Subcutaneous heparin GI Prophylaxis: Protonix Prognosis is guarded
[2019-03-18] MEDS: methylPREDNISolone SOD SUCCI 125 MG/2 ML VIAL IV SCH ×3 (11:42→23:12)
[2019-03-18 11:46] LABS: Glucose,Whole Blood 102 mg/dL (75-99)
[2019-03-18 17:01] LABS: Glucose,Whole Blood 152 mg/dL (75-99)
--- NOTE | 2019-03-18 18:09 | P.PN ---
Subjective Progress Note Date: 03/18/19 Principal diagnosis: Acute hypoxic respiratory failure Bilateral pneumonia Severe sepsis Chronic persistent asthma moderate to severe category Possible sleep apnea and sleep disorder breathing 03/18/2019 cont to do better but still has ongoing resp complaints fio2 is 5 lpm 03/17/2019, patient seen eval reexamined during the rounds his shortness of breath slightly better cough and the sputum continued to improve slowly but still get short of breath and minimal activity and exertion, his oxygen requirement is down to 5 L, afebrile, remains stable 22,000 sodium stable 136 potassium is down to 4.8 03/16/2019, patient seen eval examined during the rounds labs reviewed medications reviewed radiographic studies done today reviewed as well, patient is feeling slightly better but just getting to the bathroom from the bed get short of breath since very dyspneic, he remains on 6 L oxygen, chest x-ray showed bilateral stable infiltrate, white cell count is up to 22,100, likely due to high-dose steroid which we will taper it to 2 times a day 40 mg, continue bronchodilator 03/14/2019, patient seen eval reexamined during the rounds still short of breath have declined use of BiPAP machine currently on high flow oxygen 6 L saturation stable 92% white cell count is 15,000 platelets and is 510,000 slowly improving in terms of antibiotics, blood cultures no growth so far sputum results are pending Morbidly obese 43-year-old nonsmoker with history of chronic persistent asthma has been on nebulizer treatment and puffer as needed, patient has started having symptoms about a week to 10 days ago got sick with upper respiratory type of infection, went to urgent care will prescribe course of antibiotics and diagnosed as a viral infection subsequently was discharged patient did not get better. 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, no significant past medical history remotely used to smoke in the past, it was negative for pulmonary embolism, bilateral basal consolidation has been seen, patient is currently being supported with the BiPAP, spike a temperature up to 101.6 his LFTs are mildly elevated likely related to fatty liver with white cell count of 13,300, both influenza A and B are negative Objective - Vital Signs Vital signs: Vital Signs Temp 97.6 F 03/18/19 12:59 Pulse 84 03/18/19 15:35 Resp 16 03/18/19 12:59 BP 130/86 03/18/19 12:59 Pulse Ox 92 L 03/18/19 12:59 Intake & Output 03/17/19 03/18/19 03/18/19 18:59 06:59 18:59 Intake Total 373 079 7592 Output Total 1999 Balance -5454 400 1128 Intake: IV 50 cefTRIAXone 2 gm In 50 Sodium Chloride 0.9% 50 ml @ 100 mls/hr IVPB Q24HR [facility] Rx#:[id number] Oral 804 292 [id number] Output: Urine 1999 Other: Voiding Method Urinal Urinal Urinal # Voids 2 2 # Bowel Movements 0 0 - Exam - Constitutional General appearance: disheveled, mild distress, morbidly obese - EENT Eyes: anicteric sclerae, EOMI, PERRLA, poor dentition, normal appearance Ears: bilateral: normal - Neck Neck: normal ROM Carotids: bilateral: upstroke normal Thyroid: bilateral: normal size - Respiratory Respiratory: bilateral: diminished, dullness, rales - Cardiovascular Rhythm: regular Heart sounds: normal: S1, S2 - Gastrointestinal General gastrointestinal: distended, normal bowel sounds, soft - Integumentary Integumentary: normal turgor - Neurologic Neurologic: CNII-XII intact - Musculoskeletal Musculoskeletal: gait normal, generalized weakness, strength equal bilaterally - Psychiatric Psychiatric: A&O x's 3, appropriate affect, intact judgment & insight - Labs CBC & Chem 7: 03/18/19 08:30 03/17/19 05:22 Labs: Abnormal Lab Results - Last 24 Hours (Table) 03/17/19 03/18/19 03/18/19 Range/Units 20:56 07:01 08:30 WBC 20.5 H (3.8-10.6) k/uL Plt Count 538 H (150-450) k/uL Neutrophils # (Manual) 14.50 H (1.3-7.7) k/uL Metamyelocytes # (Man) 0.62 H (0) k/uL Myelocytes # (Manual) 0.41 H (0) k/uL POC Glucose (mg/dL) 115 H 104 H (75-99) mg/dL 03/18/19 03/18/19 Range/Units 11:34 16:45 WBC (3.8-10.6) k/uL Plt Count (150-450) k/uL Neutrophils # (Manual) (1.3-7.7) k/uL Metamyelocytes # (Man) (0) k/uL Myelocytes # (Manual) (0) k/uL POC Glucose (mg/dL) 102 H 152 H (75-99) mg/dL Microbiology - Last 24 Hours (Table) 03/13/19 11:15 Blood Culture - Preliminary Blood No Growth after 120 hours Assessment and Plan Assessment: Acute hypoxic respiratory failure Bilateral pneumonia Severe sepsis Chronic persistent asthma moderate to severe category Possible sleep apnea and sleep disorder breathing Leukocytosis likely from pneumonia as well as significant contribution from IV steroids Plan: Broad-spectrum antibiotics Bronchodilators IV steroids, we'll continue 40 twice a day Sleep study as outpatient Sputum studies Other recommendations pending plan of care as per clinical response of the patient Time with Patient: Greater than 30
[2019-03-18 20:33] LABS: Glucose,Whole Blood 143 mg/dL (75-99)
[2019-03-18] MEDS: MONTELUKAST 10 MG TAB PO SCH (21:29)
[2019-03-19] MEDS: IPRATROPIUM-ALBUTEROL 3 ML NEB INHALATION SCH ×6 (00:58→20:31)
[2019-03-19] MEDS: methylPREDNISolone SOD SUCCI 125 MG/2 ML VIAL IV SCH ×4 (05:44→23:19)
[2019-03-19] MEDS: FORMOTEROL FUMARATE 20 MCG/2 ML NEBU INHALATION SCH ×2 (07:00→20:31)
[2019-03-19] MEDS: BUDESONIDE 1 MG/2 ML NEBU INHALATION SCH ×2 (07:00→20:31)
[2019-03-19] MEDS: INSULIN ASPART (NovoLOG) 100 UNIT/ML VIAL SQ SCH ×4 (07:10→20:33)
[2019-03-19 07:21] LABS: Glucose,Whole Blood 127 mg/dL (75-99)
[2019-03-19] MEDS: MULTIVITAMINS, THERA 1 EACH TAB PO SCH (08:36)
[2019-03-19] MEDS: PANTOPRAZOLE 40 MG TABLET PO SCH (08:36)
[2019-03-19] MEDS: AZITHROMYCIN 500 MG TAB PO SCH (08:36)
[2019-03-19] MEDS: HEPARIN SODIUM,PORCINE 5,000 UNIT/ML 1 ML VIAL SQ SCH ×2 (08:36→20:33)
[2019-03-19 08:42] LABS: Basophils # (A) 0.1 k/uL (0-0.2); Basophils % (A) 1 %; Eosinophils % (A) 0 %; HCT 45.4 % (39.0-53.0); HGB 15.1 gm/dL (13.0-17.5); Lymphocytes # (A) 1.5 k/uL (1.0-4.8); Lymphocytes % (A) 6 %; MCH 30.5 pg (25.0-35.0); MCHC 33.3 g/dL (31.0-37.0); MCV 91.5 fL (80.0-100.0); Mean Platelet Volume 6.8; Monocytes # (A) 0.5 k/uL (0-1.0); Monocytes % (A) 2 %; Neutrophils % (A) 91 %; Platelet Count 533 k/uL (150-450); RBC 4.96 m/uL (4.30-5.90); RDW 12.9 % (11.5-15.5); WBC 25.4 k/uL (3.8-10.6)
--- NOTE | 2019-03-19 10:54 | P.PN ---
Subjective This is a pleasant 43 years old male with past medical history of asthma, presents with acute dyspnea and found to be in acute asthma exacerbation, his been evaluated by electric motor fitter and he was started on Solu-Medrol as well as antibiotics in the form of Zithromax and ceftriaxone for bilateral basal pneumonia versus acute purulent tracheobronchitis, or both. Patient is still have some dyspnea, he still has dry cough with difficulty breathing. However he denies chest pain. No swallowing difficulty. No abdominal pain for example no right upper quadrant abdominal pain or tenderness. No change in bowel habits. No urinary complaints. Saturating 90% on 5 L oxygen via nasal cannula. His respiratory rate is around 22 per Minutes. And he has persistent leukocytosis 22k. Sugar is controlled. 03/18/2019 Patient feels only slightly better distal shortness of breath with dry cough, on exam he still have decreased air entry with expiratory wheezing, he is still on 5 L oxygen via nasal cannula. Left atrial sewing persistent leukocytosis of 20.5 K however he isn't on steroids. Because patient is slowly improving. Going to increase his Solu-Medrol from 40 mg twice daily up to 60 mg 4 times daily, patient informed and he agrees. 03/19/2019 Patient feels better today with less dyspnea and wheezing, his oxygen requirement came down to 2 L/m.however he still have some decreased air entry on both sides, so is going to keep him today. Continue with Solu-Medrol 60 mg every 6 hours and Zithromax and Rocephin. he has redness and scaling on both feet salts, has been going on for 6 months on and off, he felt better since admission, probably related to steroids. Will add also antifungalblood patient is able to ambulate with no difficulty except some exertional dyspnea Objective - Vital Signs Vital signs: Vital Signs Temp 97.5 F L 03/19/19 04:27 Pulse 102 H 03/19/19 07:29 Resp 24 03/19/19 04:27 BP 134/82 03/19/19 04:27 Pulse Ox 90 L 03/19/19 04:27 Intake & Output 03/18/19 03/19/19 03/19/19 18:59 06:59 18:59 Intake Total 2280 Balance 2280 Intake: Oral 2280 Other: Voiding Method Urinal Urinal # Voids 2 5 # Bowel Movements 1 1 - Exam GENERAL: The patient is alert and oriented x3, not in any acute distress. Well developed, well nourished. HEENT: Pupils are round and equally reacting to light. EOMI. No scleral icterus. No conjunctival pallor. Normocephalic, atraumatic. No pharyngeal erythema. No thyromegaly. CARDIOVASCULAR: S1 and S2 present. No murmurs, rubs, or gallops. -PULMONARY: Chest is clear to auscultation, bilateral scattered wheezing with decreased air entry in both sides, better than yesterday ABDOMEN: Soft, nontender, nondistended, normoactive bowel sounds. No palpable organomegaly. MUSCULOSKELETAL: No joint swelling or deformity. -EXTREMITIES: No cyanosis, clubbing, or pedal edema. bilateral small inflammation with pink color and what scale, improving as per patient NEUROLOGICAL: Gross neurological examination did not reveal any focal deficits. SKIN: No rashes. no petechiae. - Labs CBC & Chem 7: 03/19/19 08:05 03/17/19 05:22 Labs: Abnormal Lab Results - Last 24 Hours (Table) 03/18/19 03/18/19 03/18/19 Range/Units 08:30 11:34 16:45 WBC (3.8-10.6) k/uL Plt Count (150-450) k/uL Neutrophils # (1.3-7.7) k/uL Neutrophils # (Manual) 14.50 H (1.3-7.7) k/uL Metamyelocytes # (Man) 0.62 H (0) k/uL Myelocytes # (Manual) 0.41 H (0) k/uL POC Glucose (mg/dL) 102 H 152 H (75-99) mg/dL 03/18/19 03/19/19 03/19/19 Range/Units 20:32 07:05 08:05 WBC 25.4 H (3.8-10.6) k/uL Plt Count 533 H (150-450) k/uL Neutrophils # 23.0 H (1.3-7.7) k/uL Neutrophils # (Manual) (1.3-7.7) k/uL Metamyelocytes # (Man) (0) k/uL Myelocytes # (Manual) (0) k/uL POC Glucose (mg/dL) 143 H 127 H (75-99) mg/dL Microbiology - Last 24 Hours (Table) 03/13/19 11:15 Blood Culture - Preliminary Blood No Growth after 120 hours Assessment and Plan Assessment: Acute asthma exacerbation Bilateral basal pneumonia and acute tracheal bronchitis sepsis secondary to above Acute hypoxic respiratory failure bilateral feet soles eczema, versus fungal infection. Continue with steroid and antifungal Possible sleep apnea, need outpatient follow-up Service syndrome, present on admission with fever and leukocytosis Leukocytosis Mildly elevated liver enzymes secondary to fatty liver and gallstones disease Plan: This is a pleasant 43 years old male who presents with acute asthma exacerbation and bilateral pneumonia. Continue with antibiotics. Continue with steroids and increased dose as above, continue with bronchodilator. Follow-up recommendation by electric motor fitter. continue with clotrimazole Labs and medication were reviewed.. Continue same treatment. Continue with symptomatic treatment. Resume home medication. Monitor lytes and vitals. DVT and GI prophylaxis. Further recommendations of the clinical course of the patient DVT prophylaxis: Subcutaneous heparin GI Prophylaxis: Protonix Prognosis is guarded
[2019-03-19 12:01] LABS: Glucose,Whole Blood 134 mg/dL (75-99)
[2019-03-19] MEDS: CLOTRIMAZOLE 1% CREAM 15 GM TUBE TOPICAL SCH ×2 (12:33→20:38)
[2019-03-19 17:02] LABS: Glucose,Whole Blood 159 mg/dL (75-99)
[2019-03-19 20:06] LABS: Glucose,Whole Blood 194 mg/dL (75-99)
[2019-03-19] MEDS: MONTELUKAST 10 MG TAB PO SCH (20:33)
[2019-03-19 20:49] LABS: African American GFR (CKD) >90 (>60 ml/min/1.73 sqM); Anion Gap 10 mmol/L; Blood Urea Nitrogen 21 mg/dL (9-20); Calcium 9.4 mg/dL (8.4-10.2); Carbon Dioxide 25 mmol/L (22-30); Chloride 101 mmol/L (98-107); Glucose 197 mg/dL (74-99); Non-African American GFR(CKD) >90 (>60 ml/min/1.73 sqM); Potassium 4.4 mmol/L (3.5-5.1); Sodium 136 mmol/L (137-145)
[2019-03-20] MEDS: IPRATROPIUM-ALBUTEROL 3 ML NEB INHALATION SCH ×5 (01:22→16:04)
[2019-03-20] MEDS: methylPREDNISolone SOD SUCCI 125 MG/2 ML VIAL IV SCH ×3 (05:07→16:23)
[2019-03-20 06:53] LABS: Glucose,Whole Blood 121 mg/dL (75-99)
[2019-03-20] MEDS: INSULIN ASPART (NovoLOG) 100 UNIT/ML VIAL SQ SCH ×3 (07:01→16:22)
[2019-03-20] MEDS: AZITHROMYCIN 500 MG TAB PO SCH (07:41)
[2019-03-20] MEDS: PANTOPRAZOLE 40 MG TABLET PO SCH (07:41)
[2019-03-20] MEDS: HEPARIN SODIUM,PORCINE 5,000 UNIT/ML 1 ML VIAL SQ SCH (07:41)
[2019-03-20] MEDS: CLOTRIMAZOLE 1% CREAM 15 GM TUBE TOPICAL SCH (07:42)
[2019-03-20] MEDS: BUDESONIDE 1 MG/2 ML NEBU INHALATION SCH (08:46)
[2019-03-20] MEDS: FORMOTEROL FUMARATE 20 MCG/2 ML NEBU INHALATION SCH (08:46)
[2019-03-20 09:55] LABS: Basophils # (A) 0.1 k/uL (0-0.2); Basophils % (A) 0 %; Eosinophils % (A) 0 %; HCT 45.6 % (39.0-53.0); HGB 14.9 gm/dL (13.0-17.5); Lymphocytes % (A) 5 %; MCH 30.3 pg (25.0-35.0); MCHC 32.5 g/dL (31.0-37.0); MCV 93.1 fL (80.0-100.0); Mean Platelet Volume 7.1; Monocytes # (A) 0.6 k/uL (0-1.0); Monocytes % (A) 3 %; Neutrophils # (A) 20.5 k/uL (1.3-7.7); Neutrophils % (A) 92 %; Platelet Count 477 k/uL (150-450); RDW 13.1 % (11.5-15.5); WBC 22.4 k/uL (3.8-10.6)
[2019-03-20 11:53] LABS: Glucose,Whole Blood 103 mg/dL (75-99)
[2019-03-20] MEDS: MULTIVITAMINS, THERA 1 EACH TAB PO SCH (11:57)
[2019-03-20 13:11] VITALS: BP 129/87; RESP 16; TEMP 97.6
--- NOTE | 2019-03-20 15:13 | P.PN ---
Subjective Progress Note Date: 03/20/19 Principal diagnosis: Acute hypoxic respiratory failure Bilateral pneumonia Severe sepsis Chronic persistent asthma moderate to severe category Possible sleep apnea and sleep disorder breathing 03/20/2019, patient seen and evaluated examined during the rounds sitting upright on the bed breathing comfortably off of oxygen denies any chest pain or coughMIs oxygen saturation 90% on room air, hemodynamically stable, patient is being considered for possible discharge later on today would recommend a follow- up on outpatient basisfor bilateral lower lobe pneumonia and respiratory failure patient was agreed for evaluation patient towards x-rays follow-up sleep studies and PFT 03/18/2019 cont to do better but still has ongoing resp complaints fio2 is 5 lpm 03/17/2019, patient seen eval reexamined during the rounds his shortness of breath slightly better cough and the sputum continued to improve slowly but still get short of breath and minimal activity and exertion, his oxygen requirement is down to 5 L, afebrile, remains stable 22,000 sodium stable 136 potassium is down to 4.8 03/16/2019, patient seen eval examined during the rounds labs reviewed medications reviewed radiographic studies done today reviewed as well, patient is feeling slightly better but just getting to the bathroom from the bed get short of breath since very dyspneic, he remains on 6 L oxygen, chest x-ray showed bilateral stable infiltrate, white cell count is up to 22,100, likely due to high-dose steroid which we will taper it to 2 times a day 40 mg, continue bronchodilator 03/14/2019, patient seen eval reexamined during the rounds still short of breath have declined use of BiPAP machine currently on high flow oxygen 6 L saturation stable 92% white cell count is 15,000 platelets and is 510,000 slowly improving in terms of antibiotics, blood cultures no growth so far sputum results are pending Morbidly obese 43-year-old nonsmoker with history of chronic persistent asthma has been on nebulizer treatment and puffer as needed, patient has started having symptoms about a week to 10 days ago got sick with upper respiratory type of infection, went to urgent care will prescribe course of antibiotics and diagnosed as a viral infection subsequently was discharged patient did not get better. 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, no significant past medical history remotely used to smoke in the past, it was negative for pulmonary embolism, bilateral basal consolidation has been seen, patient is currently being supported with the BiPAP, spike a temperature up to 101.6 his LFTs are mildly elevated likely related to fatty liver with white cell count of 13,300, both influenza A and B are negative Objective - Vital Signs Vital signs: Vital Signs Temp 97.6 F 03/20/19 13:08 Pulse 70 03/20/19 13:08 Resp 16 03/20/19 13:08 BP 129/87 03/20/19 13:08 Pulse Ox 90 L 03/20/19 13:08 Intake & Output 03/19/19 03/20/19 03/20/19 18:59 06:59 18:59 Intake Total 50 180 Balance 50 180 Intake: IV 50 cefTRIAXone 2 gm In 50 Sodium Chloride 0.9% 50 ml @ 100 mls/hr IVPB Q24HR MIKE Rx#:[id number] Oral 180 Other: Voiding Method Urinal Urinal # Voids 2 3 - Exam - Constitutional General appearance: disheveled, mild distress, morbidly obese - EENT Eyes: anicteric sclerae, EOMI, PERRLA, poor dentition, normal appearance Ears: bilateral: normal - Neck Neck: normal ROM Carotids: bilateral: upstroke normal Thyroid: bilateral: normal size - Respiratory Respiratory: bilateral: diminished, dullness, rales - Cardiovascular Rhythm: regular Heart sounds: normal: S1, S2 - Gastrointestinal General gastrointestinal: distended, normal bowel sounds, soft - Integumentary Integumentary: normal turgor - Neurologic Neurologic: CNII-XII intact - Musculoskeletal Musculoskeletal: gait normal, generalized weakness, strength equal bilaterally - Psychiatric Psychiatric: A&O x's 3, appropriate affect, intact judgment & insight - Labs CBC & Chem 7: 03/20/19 08:53 03/19/19 08:05 Labs: Abnormal Lab Results - Last 24 Hours (Table) 03/19/19 03/19/19 03/19/19 Range/Units 08:05 16:59 20:03 WBC (3.8-10.6) k/uL Plt Count (150-450) k/uL Neutrophils # (1.3-7.7) k/uL Sodium 136 L (137-145) mmol/L BUN 21 H (9-20) mg/dL Glucose 197 H (74-99) mg/dL POC Glucose (mg/dL) 159 H 194 H (75-99) mg/dL 03/20/19 03/20/19 03/20/19 Range/Units 06:52 08:53 11:51 WBC 22.4 H (3.8-10.6) k/uL Plt Count 477 H (150-450) k/uL Neutrophils # 20.5 H (1.3-7.7) k/uL Sodium (137-145) mmol/L BUN (9-20) mg/dL Glucose (74-99) mg/dL POC Glucose (mg/dL) 121 H 103 H (75-99) mg/dL Microbiology - Last 24 Hours (Table) 03/13/19 11:15 Blood Culture - Final Blood No Growth after 144 hours Assessment and Plan Assessment: Acute hypoxic respiratory failure Bilateral pneumonia Severe sepsis Chronic persistent asthma moderate to severe category Possible sleep apnea and sleep disorder breathing Leukocytosis likely from pneumonia as well as significant contribution from IV steroids Plan: Broad-spectrum antibiotics, can be changed to by mouth Bronchodilators IV steroids can be changed to by mouth Sleep study as outpatient agree with discharge planning Other recommendations pending plan of care as per clinical response of the patient Time with Patient: Greater than 30
[2019-03-20 16:18] VITALS: PULSE 90
--- NOTE | 2019-03-20 20:34 | P.DS ---
Providers Date of admission: 03/13/19 15:11 Attending physician: Danis Roth Consults: 03/13/19 15:12 Consult Physician Urgent Consulting Provider: Devin Lebron Consult Reason/Comments: NIVDRF, CAP, acute asthma exacerbation Do you want consulting provider notified?: Already Contacted Primary care physician: Marie Cervantes Hospital Course: Diagnoses: Acute asthma exacerbation Bilateral basal pneumonia and acute tracheal bronchitis SIRS syndrome, present on admission with fever and leukocytosis sepsis secondary to above Acute hypoxic respiratory failure bilateral feet soles eczema, versus fungal infection. Continue with steroid and antifungal Possible sleep apnea, need outpatient follow-up Leukocytosis, multifactorial due to her pneumonia and steroid effect. Patient instructed to follow up as an outpatient and he agrees Mildly elevated liver enzymes secondary to fatty liver and gallstones disease Hospital course: This is a pleasant 43 years old male with past medical history of asthma, pres ents with acute dyspnea and found to be in acute asthma exacerbation, his been evaluated by social media executive and he was started on Solu-Medrol as well as antibiotics in the form of Zithromax and ceftriaxone for bilateral basal pneumonia versus acute purulent tracheobronchitis, or both. On admission patient was in acute hypoxic respiratory failure and he needed 6 L of oxygen, with therapy patient showed interval improvement and his oxygen requirement is improved as well. On the day of discharge his breathing is back close to normal. Patient. No chest pain. No exertional symptoms. No change in urine or bowel habits. No nausea vomiting. No fever. He has leukocytosis for example 25.4 to yesterday, mostly due to steroid effect and his infection. Since his symptoms improved patient felt is ready to go home. Patient was cleared for discharge by social media executive Patient will be discharged and short course of oral antibiotics and Taper steroids. he was informed about his high white cell count and instructed to f/u with his doctor after finishing steroids and he agrees. Problems and management plan were discussed with the patient and he verbalized understanding and acceptance Patient was found stable and can be discharged home however he needs follow-up as an outpatient. Patient was instructed to follow up with PCP within one week and patient agrees. pt agrees with appointment made for him with pcp, dermatology and pulmonology and their timing and states he will follow up. Gen: patient is a AAOx3, no distress CVS: S1-S2, RRR, no murmur Lungs: B/L CTA, no wheezing Abdomen: soft, no distention, no tenderness, positive bowel sounds Extremity: no leg edema or induration Time spent more than 35 minutes Patient Condition at Discharge: Good Plan - Discharge Summary Discharge Rx Participant: No New Discharge Prescriptions: New Cefuroxime Axetil [Ceftin] 500 mg PO BID 7 Days #14 tab Clotrimazole Cream [Lotrimin Cream] 1 applic TOPICAL BID 10 Days #1 applic Formoterol Fumarate [Perforomist] 20 mcg INHALATION RT-BID #1 nebu predniSONE 0 mg PO DIRECTED #40 tab Pantoprazole [Protonix] 40 mg PO AC-BRKFST #30 tablet.dr Acetaminophen Tab [Tylenol] 500 mg PO Q6HR PRN tab PRN Reason: Fever And/ Or Pain Continue Montelukast Sodium [Singulair] 10 mg PO HS Albuterol Inhaler [Ventolin Hfa Inhaler] 2 puff INHALATION RT-Q6H PRN PRN Reason: Shortness Of Breath Albuterol Nebulized [Ventolin Nebulized] 2.5 mg INHALATION RT-TID PRN PRN Reason: Shortness Of Breath Benzonatate [Tessalon Perles] 100 mg PO TID PRN PRN Reason: Cough Discontinued Cephalexin [Keflex] 500 mg PO TID Discharge Medication List Albuterol Inhaler [Ventolin Hfa Inhaler] 2 puff INHALATION RT-Q6H PRN 04/21/18 [History] Albuterol Nebulized [Ventolin Nebulized] 2.5 mg INHALATION RT-TID PRN 04/21/18 [History] Montelukast Sodium [Singulair] 10 mg PO HS 04/21/18 [History] Benzonatate [Tessalon Perles] 100 mg PO TID PRN 03/13/19 [History] Acetaminophen Tab [Tylenol] 500 mg PO Q6HR PRN tab 03/20/19 [Rx] Cefuroxime Axetil [Ceftin] 500 mg PO BID 7 Days #14 tab 03/20/19 [Rx] Clotrimazole Cream [Lotrimin Cream] 1 applic TOPICAL BID 10 Days #1 applic 03/20/19 [Rx] Formoterol Fumarate [Perforomist] 20 mcg INHALATION RT-BID #1 nebu 03/20/19 [Rx] Pantoprazole [Protonix] 40 mg PO AC-BRKFST #30 tablet. 03/20/19 [Rx] predniSONE 0 mg PO DIRECTED #40 tab 03/20/19 [Rx] Follow up Appointment(s)/Referral(s): Daniel Figueroa MD [STAFF PHYSICIAN] - 04/10/19 3:30 pm (fixture builder , for bilateral feet eczema vs fungal infection) Devin Lebron MD [STAFF PHYSICIAN] - 03/27/19 11:45 am (Please call office to set up appointment ) Marie Cervantes MD [Primary Care Provider] - 03/26/19 5:00 pm Patient Instructions/Handouts: Asthma (DC) Activity/Diet/Wound Care/Special Instructions: Regular diet Limited activity until follow up. Discharge/Stand Alone Forms: Work/Release Restrictions Form Discharge Disposition: HOME SELF-CARE
== END 2019-03-20 17:37 | disposition home or self-care (01) | DRG 871 ==
LOC: EC 10:48 → 3SCARD 15:11 → 4MS4W 03-17 22:02
PROVIDERS: ADMIT Hospitalist; ATTEND Hospitalist
PROC: 5A09357 Assistance with Respiratory Ventilation, Less than 24 Consecutive Hours, Continuous Positive Airway Pressure (ICD-10-PCS; principal; 2019-03-13)
DX: A41.9 Sepsis, unspecified organism (principal); J96.01 Acute respiratory failure with hypoxia; J18.9 Pneumonia, unspecified organism; J45.41 Moderate persistent asthma with (acute) exacerbation; F32.9 Major depressive disorder, single episode, unspecified; E66.9 Obesity, unspecified; G47.33 Obstructive sleep apnea (adult) (pediatric); K75.9 Inflammatory liver disease, unspecified; R65.20 Severe sepsis without septic shock; K80.20 Calculus of gallbladder without cholecystitis without obstruction; K76.0 Fatty (change of) liver, not elsewhere classified; J20.9 Acute bronchitis, unspecified; L30.8 Other specified dermatitis; T38.0X5A Adverse effect of glucocorticoids and synthetic analogues, initial encounter; Z79.899 Other long term (current) drug therapy; Z88.5 Allergy status to narcotic agent; Z98.890 Other specified postprocedural states; Z68.34 Body mass index [BMI] 34.0-34.9, adult; Z87.891 Personal history of nicotine dependence; Z82.49 Family history of ischemic heart disease and other diseases of the circulatory system; Z80.49 Family history of malignant neoplasm of other genital organs
CPT/HCPCS: 36415; 71045; 71275; 80048; 80053; 83605; 83735; 83880; 85025; 85379; 85610; 85730; 86738; 87040; 87449; 87502; 93005; 94640; 94644; 94660; 94760; 96365; 96366; 96367; 96375; 99291

== ENCOUNTER → 2019-04-11 | Outpatient (CLI) | payer BC ==
--- NOTE | 2019-04-13 13:40 | XR ---
EXAMINATION TYPE: XR ribs RT DATE OF EXAM: 04/11/2019 COMPARISON: 03/15/2019 HISTORY: 43-year-old male right-sided rib pain TECHNIQUE: 5 views FINDINGS: Strandy atelectasis of the right base. No displaced right rib fracture. IMPRESSION: No displaced right rib fracture. There seems to be some stranding atelectasis at the right base.
== END | disposition home or self-care (01) ==
LOC: RADXRMAIN 16:00
PROVIDERS: ATTEND Internal Medicine
DX: R07.81 Pleurodynia (principal)

== ENCOUNTER → 2020-05-13 | Outpatient (CLI) | payer BC ==
--- NOTE | 2020-05-14 07:48 | US ---
EXAMINATION TYPE: US scrotum with doppler. Grayscale and color Doppler Duplex imaging performed of faith blue scrotum. DATE OF EXAM: 05/13/2020 COMPARISON: NONE CLINICAL HISTORY: N50.819 testicular pain. Intermittent right testicular pain x couple weeks EXAM MEASUREMENTS: TESTICLES: Right Testicle: 4.3 x 2.7 x 2.6 cm Left Testicle: 4.5 x 2.3 x 3.1 cm EPIDIDYMIS HEAD: Right Epididymis: 1.1 x 1.3 x 1.7 cm Left Epididymis: 1.1 x 0.9 x 1.1 cm Doppler performed to assess for testicular vascularity; good bilateral arterial color flow and wavefo hilda are seen. Unable to obtain venous flow within bilateral testicles. Presence of hydroceles: right 2.1cm, left 2.8cm Presence of varicoceles: prominent vessels posterior to right testicle IMPRESSION: 1. Bilateral hydroceles. 2. Right-sided varicoceles.
== END | disposition home or self-care (01) ==
LOC: RADUSWWP 16:46
PROVIDERS: ATTEND Internal Medicine
DX: N43.3 Hydrocele, unspecified (principal); I86.1 Scrotal varices; N50.819 Testicular pain, unspecified
CPT/HCPCS: 76870; 93975

== ENCOUNTER 2020-07-02 07:52 | Day surgery (SDC) | payer BC ==
[2020-07-01 14:34] VITALS: BMI 38.1
[~2020-07-02 07:52] MED LIST: ALPRAZolam 0.25 MG TAB PO PRN; ALPRAZolam 0.5 MG TAB PO PRN; ASPIRIN 325 MG TAB PO STA; HEPARIN SODIUM,PORCINE 10,000 UNIT in SODIUM CHLORIDE 0.9% 1,000 ML IRRIGATION PRN; HEPARIN SODIUM,PORCINE 2,500 UNIT in SODIUM CHLORIDE 0.9% 250 ML IRRIGATION PRN; NITROGLYCERIN SL TABS 0.4 MG TAB SUBLINGUAL PRN; SODIUM CHLORIDE 0.9% 1,000 ML in EMPTY BAG 1 BAG IV ONE
[2020-07-02] MEDS ORDERED: SODIUM CHLORIDE 0.9% 1,000 ML IV ONE (08:02)
[2020-07-02] MEDS ORDERED: ASPIRIN 81 MG ONE (08:08)
[2020-07-02 08:23] LABS: Basophils # (A) 0.1 k/uL (0-0.2); Basophils % (A) 1 %; Eosinophils # (A) 0.5 k/uL (0-0.7); Eosinophils % (A) 6 %; HCT 47.1 % (39.0-53.0); Lymphocytes # (A) 2.8 k/uL (1.0-4.8); Lymphocytes % (A) 31 %; MCHC 33.9 g/dL (31.0-37.0); MCV 91.6 fL (80.0-100.0); Mean Platelet Volume 7.5; Monocytes # (A) 0.7 k/uL (0-1.0); Monocytes % (A) 8 %; Neutrophils # (A) 4.8 k/uL (1.3-7.7); Neutrophils % (A) 53 %; Platelet Count 406 k/uL (150-450); RBC 5.14 m/uL (4.30-5.90); RDW 13.2 % (11.5-15.5)
[2020-07-02] MEDS ORDERED: LIDOCAINE 1% INJ 10MG/ML (20 ML MDV) ONE (08:28)
[2020-07-02] MEDS ORDERED: VERAPAMIL 2.5 MG/ML 2 ML AMP ONE (08:28)
[2020-07-02 08:33] LABS: African American GFR (CKD) >90 (>60 ml/min/1.73 sqM); Anion Gap 12 mmol/L; Blood Urea Nitrogen 11 mg/dL (9-20); Calcium 9.8 mg/dL (8.4-10.2); Carbon Dioxide 25 mmol/L (22-30); Chloride 105 mmol/L (98-107); Glucose 106 mg/dL (74-99); Non-African American GFR(CKD) >90 (>60 ml/min/1.73 sqM); Potassium 4.4 mmol/L (3.5-5.1); Sodium 142 mmol/L (137-145)
[2020-07-02] MEDS ORDERED: fentaNYL (PF) 50 MCG/ML 2 ML AMP ONE (08:45)
[2020-07-02] MEDS ORDERED: HEPARIN SODIUM 1,000 UN/ML (10ML VL) ONE (08:45)
[2020-07-02] MEDS ORDERED: fentaNYL (PF) 50 MCG/ML 2 ML AMP IVP ONE (08:50)
[2020-07-02] MEDS ORDERED: MIDAZOLAM 2 MG/2 ML VIAL IVP ONE (08:50)
[2020-07-02] MEDS ORDERED: LIDOCAINE 1% INJ 10MG/ML (10 ML MDV) SQ ONE (08:52)
[2020-07-02] MEDS: VERAPAMIL SYRINGE (5 MG/10 ML) INTRAARTER ONE ×2 (08:55→09:10)
[2020-07-02] MEDS ORDERED: HEPARIN SODIUM 1,000 UN/ML (10ML VL) IV ONE (08:57)
[2020-07-02] MEDS ORDERED: IOPAMIDOL-370 125ML BTL INJ ONE (09:10)
[2020-07-02] MEDS ORDERED: RX INFO: IV CONTRAST WAS GIVEN 1 EACH MISC MISCELLANE PRN (09:20)
[2020-07-02 09:25] VITALS: RESP 16
--- NOTE | 2020-07-02 13:19 | P.CARDCATH ---
Description of Procedure: PROCEDURES PERFORMED: Left heart catheterization, bilateral coronary angiography INDICATION: Abnormal stress test, chest pain HISTORY: Patient is a pleasant 44-year-old male with history of asthma, lower back pain status post back fusion, obesity who has been having left-sided chest pain often times worse with exertion or occasionally when he leans over at work and therefore had workup including an echocardiogram that showed ejection fraction 60% and a Cardiolite stress test where he went for a total of 11 minutes on a treadmill with a moderate sized, basal to mid inferolateral and apical lateral perfusion defect concerning for ischemia. CONSENT:I have discussed the risks, benefits and alternative therapies for the above-mentioned procedure and for both sedation/analgesia as well as necessary blood product administration, if indicated, as they pertain to this patient. The patient has indicated understanding and acceptance of the risks and procedures discussed. PROCEDURE: After the risks, benefits and alternatives of the above mentioned procedure explained in detail with the patient, informed consent was obtained. Patient was taken to the catheterization lab and prepped and draped in usual fashion. 1% lidocaine was used to anesthetize the right radial artery. A 6- [place] sheath was placed in the right radial artery using modified Seldinger technique. Left coronary angiography was performed with a 5-[place] JL 3.5 catheter and right coronary angiography was performed with a 5-[place] JR5 catheter in various views. A 5-[place] pigtail catheter was inserted into the left ventricle and pressure measurements were obtained. When the pigtail was advanced into the LV, patient had a few PVC's and noted that this felt very similar to the episodes he has with exertion. The right radial sheath was removed and a TR band was placed with hemostasis achieved. The patient tolerated the procedure well. Patient was transported back to the post catheterization holding area in stable condition. Conscious Sedation: Patient was monitored under the direct supervision of vision of myself for conscious sedation using Versed and fentanyl for a total duration of 20 minutes HEMODYNAMICS: Ao: 138/67 LV: 136/2, LVEDP 9mmHg SELECTIVE CORONARY ARTERIOGRAPHY: LEFT MAIN: The left main is a large caliber vessel which bifurcates into the LAD and circumflex. There is no significant stenosis. LEFT ANTERIOR DESCENDING CORONARY ARTERY: LAD is a large caliber vessel which wraps around to the apex. There is a mid LAD long 30% stenosis and otherwise only mild luminal irregularities. LEFT CIRCUMFLEX CORONARY ARTERY: Left circumflex is a large caliber vessel with mild luminal irregularities. RIGHT CORONARY ARTERY: The right coronary artery is a large caliber vessel which gives off a PDA and PLV branch and is the dominant vessel. There are mild luminal irregularities. FINAL IMPRESSION: 1. Mild nonobstructive CAD as described above. 2. Normal left sided filling pressures. 3. Somewhat of reproduction of symptoms with mild ectopy, PVC's during LV measurements. Symptoms may correspond with PVC's. PLAN: 1. Aggressive risk factor modification per most recent ACC/AHA guidelines. 2. Follow-up in the office in 1-2 weeks. 3. May consider further workup of PVC's. Start Toprol and monitor response.
[2020-07-02 13:55] VITALS: BP 147/76; PULSE 67
== END 2020-07-02 14:00 | disposition home or self-care (01) ==
LOC: CATHCVL 07:52
PROVIDERS: ATTEND Internal Medicine
DX: I25.10 Atherosclerotic heart disease of native coronary artery without angina pectoris (principal); I49.3 Ventricular premature depolarization; R94.39 Abnormal result of other cardiovascular function study; R07.2 Precordial pain; R42 Dizziness and giddiness; R06.09 Other forms of dyspnea; R06.02 Shortness of breath; J45.909 Unspecified asthma, uncomplicated; Z98.1 Arthrodesis status; E66.9 Obesity, unspecified; Z68.37 Body mass index [BMI] 37.0-37.9, adult; Z79.899 Other long term (current) drug therapy; Z79.51 Long term (current) use of inhaled steroids; Z79.82 Long term (current) use of aspirin; Z88.6 Allergy status to analgesic agent; Z88.5 Allergy status to narcotic agent; Z82.49 Family history of ischemic heart disease and other diseases of the circulatory system
CPT/HCPCS: 93458; 80048; 85025; C1769; C1894; J2250; J3010; J1644; J2001; Q9967

== ENCOUNTER → 2021-01-24 | Outpatient (CLI) | payer BC ==
--- NOTE | 2021-01-25 02:10 | MR ---
EXAMINATION TYPE: MR lumbar spine wo con DATE OF EXAM: 01/24/2021 COMPARISON: None HISTORY: Low back pain Multiplanar multiecho imaging of the lumbar spine without contrast. Lumbar vertebra have normal alignment. There is some degenerative disc space narrowing at L3-4 and L4 -5. There is no lumbar disc herniation. There is no spinal stenosis. Lumbar nerve roots appear normal . The neural foramina appear fairly well-maintained. There is no lumbar paraspinal mass. Sacroiliac j oints are intact. I see no focal bone destruction. IMPRESSION: Negative MR scan of the lumbar spine. Minor degenerative disc changes at L3-4 and L4-5. No spinal kianna nosis or disc herniation.
== END | disposition home or self-care (01) ==
LOC: RADMRIMAIN 21:29
PROVIDERS: ATTEND Internal Medicine
DX: M47.816 Spondylosis without myelopathy or radiculopathy, lumbar region (principal)
CPT/HCPCS: 72148

== ENCOUNTER 2021-09-26 08:34 | Emergency (ER) | payer BC ==
[2021-09-26 08:46] VITALS: TEMP 97.8
[2021-09-26 09:30] LABS: Basophils # (A) 0.2 k/uL (0-0.2); Basophils % (A) 2 %; Eosinophils # (A) 0.3 k/uL (0-0.7); Eosinophils % (A) 3 %; HCT 46.1 % (39.0-53.0); HGB 15.9 gm/dL (13.0-17.5); Lymphocytes # (A) 2.2 k/uL (1.0-4.8); Lymphocytes % (A) 23 %; MCHC 34.4 g/dL (31.0-37.0); Mean Platelet Volume 7.8; Monocytes # (A) 0.8 k/uL (0-1.0); Monocytes % (A) 8 %; Neutrophils # (A) 6.3 k/uL (1.3-7.7); Neutrophils % (A) 63 %; Platelet Count 387 k/uL (150-450); RBC 4.96 m/uL (4.30-5.90); WBC 9.9 k/uL (3.8-10.6)
[2021-09-26 09:31] LABS: Appearance,Urine Clear (Clear); Bilirubin,Urine Negative (Negative); Blood,Urine Negative (Negative); Color,Urine Yellow; Glucose,Urine (UA) Negative (Negative); Ketones,Urine Negative (Negative); Leukocyte Esterase,Urine Negative (Negative); Mucus,Urine Occasional /hpf; Nitrite,Urine Negative (Negative); PH, Urine 6.5 (5.0-8.0); Protein,Urine 1+ (Negative); RBC,Urine 3 /hpf (0-5); Specific Gravity,Urine 1.019 (1.001-1.035); WBC,Urine 1 /hpf (0-5)
[2021-09-26 09:40] LABS: ALT 44 U/L (4-49); AST 32 U/L (17-59); African American GFR (CKD) >90 (>60 ml/min/1.73 sqM); Albumin 5.1 g/dL (3.5-5.0); Alkaline Phosphatase 56 U/L (38-126); Amylase 83 U/L (30-110); Anion Gap 13 mmol/L; Blood Urea Nitrogen 12 mg/dL (9-20); Calcium 9.4 mg/dL (8.4-10.2); Carbon Dioxide 24 mmol/L (22-30); Chloride 103 mmol/L (98-107); Glucose 113 mg/dL (74-99); Lipase 265 U/L (23-300); Non-African American GFR(CKD) >90 (>60 ml/min/1.73 sqM); Potassium 4.2 mmol/L (3.5-5.1); Sodium 140 mmol/L (137-145); Total Bilirubin 1.1 mg/dL (0.2-1.3); Total Protein 9.2 g/dL (6.3-8.2)
[2021-09-26 09:47] LABS: Partial Thromboplastin Time 27.6 sec (22.0-30.0); Prothrombin Time 11.2 sec (9.0-12.0)
--- NOTE | 2021-09-26 09:56 | ED ---
General Adult HPI - General Chief complaint: Abdominal Pain Stated complaint: abd pain Time Seen by Provider: 09/26/21 08:35 Source: patient, RN notes reviewed, old records reviewed Mode of arrival: ambulatory Limitations: no limitations - History of Present Illness Initial comments: 46-year-old male presenting with 24 history of abdominal pain which is predominantly periumbilical. This has been associated with multiple episodes of vomiting. No fever. No change in bowel movements. Patient has prior history of inguinal hernia repair. Patient describes the pain is constant. - Related Data Home Medications Medication Instructions Recorded Confirmed No Known Home Medications 09/26/21 09/26/21 Allergies Allergy/AdvReac Type Severity Reaction Status Date / Time hydrocodone [From Lortab] Allergy Rash/Hives Verified 09/26/21 09:49 Review of Systems ROS Statement: Those systems with pertinent positive or pertinent negative responses have been documented in the HPI. ROS Other: All systems not noted in ROS Statement are negative. Past Medical History Past Medical History: Asthma Additional Past Medical History / Comment(s): occ asthma flare ups, brobchitis History of Any Multi-Drug Resistant Organisms: None Reported Past Surgical History: Hernia Repair, Orthopedic Surgery Additional Past Surgical History / Comment(s): back surgery Past Anesthesia/Blood Transfusion Reactions: No Reported Reaction Past Psychological History: Depression Smoking Status: Never smoker Past Alcohol Use History: None Reported Past Drug Use History: Marijuana - Past Family History Father Family Medical History: Hypertension Mother Family Medical History: Cancer, Hypertension Additional Family Medical History / Comment(s): UTERINE CANCER General Exam Limitations: no limitations General appearance: alert, in no apparent distress Head exam: Present: atraumatic, normocephalic Eye exam: Present: normal appearance, PERRL ENT exam: Present: normal exam Neck exam: Present: normal inspection. Absent: tenderness, meningismus Respiratory exam: Present: normal lung sounds bilaterally. Absent: respiratory distress, wheezes Cardiovascular Exam: Present: regular rate. Absent: normal rhythm, bradycardia GI/Abdominal exam: Present: distended, tenderness Extremities exam: Present: normal inspection, normal capillary refill. Absent: pedal edema Neurological exam: Present: alert, oriented X3, CN II-XII intact. Absent: motor sensory deficit Psychiatric exam: Present: normal affect, normal mood Skin exam: Present: warm, dry, intact. Absent: cyanosis, diaphoretic Course Vital Signs 09/26/21 09/26/21 08:41 10:24 Temperature 97.8 F Pulse Rate 65 51 L Respiratory 20 18 Rate Blood Pressure 158/103 141/90 O2 Sat by Pulse 98 98 Oximetry Medical Decision Making - Medical Decision Making 20 sexual man with abdominal pain, patient well-appearing, he does have some anterior abdominal tenderness. Laboratory studies are unremarkable. CT shows an anterior abdominal wall hernia with omental fat, no definitive bowel present. Patient has no obstructive symptoms. His pain is quite minimal. He will take anti-inflammatories at home, follow-up with his general surgeon. Return p arameters discussed. - Lab Data Result diagrams: 09/26/21 09:18 09/26/21 09:18 Lab Results 09/26/21 09/26/21 09/26/21 Range/Units 09:18 09:18 09:18 WBC 9.9 (3.8-10.6) k/uL RBC 4.96 (4.30-5.90) m/uL Hgb 15.9 (13.0-17.5) gm/dL Hct 46.1 (39.0-53.0) % MCV 93.0 (80.0-100.0) fL MCH 32.0 (25.0-35.0) pg MCHC 34.4 (31.0-37.0) g/dL RDW 13.0 (11.5-15.5) % Plt Count 387 (150-450) k/uL MPV 7.8 Neutrophils % 63 % Lymphocytes % 23 % Monocytes % 8 % Eosinophils % 3 % Basophils % 2 % Neutrophils # 6.3 (1.3-7.7) k/uL Lymphocytes # 2.2 (1.0-4.8) k/uL Monocytes # 0.8 (0-1.0) k/uL Eosinophils # 0.3 (0-0.7) k/uL Basophils # 0.2 (0-0.2) k/uL PT 11.2 (9.0-12.0) sec INR 1.0 (<1.2) APTT 27.6 (22.0-30.0) sec Sodium 140 (137-145) mmol/L Potassium 4.2 (3.5-5.1) mmol/L Chloride 103 (98-107) mmol/L Carbon Dioxide 24 (22-30) mmol/L Anion Gap 13 mmol/L BUN 12 (9-20) mg/dL Creatinine 0.75 (0.66-1.25) mg/dL Est GFR (CKD-EPI)AfAm >90 (>60 ml/min/1.73 sqM) Est GFR (CKD-EPI)NonAf >90 (>60 ml/min/1.73 sqM) Glucose 113 H (74-99) mg/dL Calcium 9.4 (8.4-10.2) mg/dL Total Bilirubin 1.1 (0.2-1.3) mg/dL AST 32 (17-59) U/L ALT 44 (4-49) U/L Alkaline Phosphatase 56 (38-126) U/L Total Protein 9.2 H (6.3-8.2) g/dL Albumin 5.1 H (3.5-5.0) g/dL Amylase 83 (30-110) U/L Lipase 265 (23-300) U/L Urine Color Urine Appearance (Clear) Urine pH (5.0-8.0) Ur Specific [place] (1.001-1.035) Urine Protein (Negative) Urine Glucose (UA) (Negative) Urine Ketones (Negative) Urine Blood (Negative) Urine Nitrite (Negative) Urine Bilirubin (Negative) Urine Urobilinogen (<2.0) mg/dL Ur Leukocyte Esterase (Negative) Urine RBC (0-5) /hpf Urine WBC (0-5) /hpf Urine Mucus (None) /hpf 09/26/ Range/Units 09:20 WBC (3.8-10.6) k/uL RBC (4.30-5.90) m/uL Hgb (13.0-17.5) gm/dL Hct (39.0-53.0) % MCV (80.0-100.0) fL MCH (25.0-35.0) pg MCHC (31.0-37.0) g/dL RDW (11.5-15.5) % Plt Count (150-450) k/uL MPV Neutrophils % % Lymphocytes % % Monocytes % % Eosinophils % % Basophils % % Neutrophils # (1.3-7.7) k/uL Lymphocytes # (1.0-4.8) k/uL Monocytes # (0-1.0) k/uL Eosinophils # (0-0.7) k/uL Basophils # (0-0.2) k/uL PT (9.0-12.0) sec INR (<1.2) APTT (22.0-30.0) sec Sodium (137-145) mmol/L Potassium (3.5-5.1) mmol/L Chloride (98-107) mmol/L Carbon Dioxide (22-30) mmol/L Anion Gap mmol/L BUN (9-20) mg/dL Creatinine (0.66-1.25) mg/dL Est GFR (CKD-EPI)AfAm (>60 ml/min/1.73 sqM) Est GFR (CKD-EPI)NonAf (>60 ml/min/1.73 sqM) Glucose (74-99) mg/dL Calcium (8.4-10.2) mg/dL Total Bilirubin (0.2-1.3) mg/dL AST (17-59) U/L ALT (4-49) U/L Alkaline Phosphatase (38-126) U/L Total Protein (6.3-8.2) g/dL Albumin (3.5-5.0) g/dL Amylase (30-110) U/L Lipase (23-300) U/L Urine Color Yellow Urine Appearance Clear (Clear) Urine pH 6.5 (5.0-8.0) Ur Specific [place] 1.019 (1.001-1.035) Urine Protein 1+ H (Negative) Urine Glucose (UA) Negative (Negative) Urine Ketones Negative (Negative) Urine Blood Negative (Negative) Urine Nitrite Negative (Negative) Urine Bilirubin Negative (Negative) Urine Urobilinogen 2.0 (<2.0) mg/dL Ur Leukocyte Esterase Negative (Negative) Urine RBC 3 (0-5) /hpf Urine WBC 1 (0-5) /hpf Urine Mucus Occasional H (None) /hpf Disposition Clinical Impression: Abdominal pain, Hernia of anterior abdominal wall Disposition: HOME SELF-CARE Condition: Good Instructions (If sedation given, give patient instructions): Abdominal Pain (ED), Ventral Hernia (ED) Is patient prescribed a controlled substance at d/c from ED?: No Referrals: Marie Cervantes MD [Primary Care Provider] - 1-2 days Time of Disposition: 11:12
[2021-09-26 10:25] VITALS: RESP 18
--- NOTE | 2021-09-26 11:01 | CT ---
EXAMINATION TYPE: CT abdomen pelvis w con DATE OF EXAM: 09/26/2021 COMPARISON: CT chest dated 03/13/2019. No previous CT scan of the abdomen. HISTORY: Abdominal pain CT DLP: 2399 mGycm Automated exposure control for dose reduction was used. TECHNIQUE: Helical acquisition of images was performed from the lung bases through the pelvis. CONTRAST: Performed without Oral Contrast and with IV Contrast, patient injected with 100 ml mL of Isovue 300. FINDINGS: LUNG BASES: Bilateral basal peripheral pulmonary reticulations and subsegmental atelectasis. LIVER/GB: Markedly hepatic hypodense parenchyma suggestive of severe hepatic steatosis. 15 mm lesion, slightly hyperdense as compared to the hepatic parenchyma, seen in segment 4 of the liver, incomplet ector characterized by this CT scan and represent focal fat sparing. This can be further assessed by el ective enhanced MRI of the liver. Cholelithiasis without evidence of acute cholecystitis. PANCREAS: No significant abnormality is seen. SPLEEN: No significant abnormality is seen. ADRENALS: No significant abnormality is seen. KIDNEYS: No significant abnormality is seen. FREE AIR: No free air is visualized. RETROPERITONEAL ADENOPATHY: None visualized REPRODUCTIVE ORGANS: No significant abnormality is seen URINARY BLADDER: Slightly thickened wall, nonspecific. Please correlate with urinalysis results. PELVIC ADENOPATHY: Scattered subcentimeter bilateral inguinal and external iliac lymph nodes, nonspe cific. OSSEOUS STRUCTURES: No aggressive bone lesion. BOWEL: Unremarkable nondistended stomach, duodenum and small bowel. Mild nonspecific wall thickening of the rectum. Scattered uncomplicated colonic diverticulosis. Normal appendix. OTHER: Anterior abdominal wall hernia is seen to the right side of the midline in the upper abdomen m easuring 4.8 x 3.4 cm and containing omental fat inseparable from the anterior aspect of the transver se colon, demonstrating fat stranding which could represent mild acute inflammatory changes, please c orrelate clinically. Density seen in the left inguinal region likely with surgical clips in the lower abdomen which could be related to previous hernia repair. Unremarkable abdominal aorta. No sizable a scites. IMPRESSION: Right-sided anterior abdominal wall fat-containing hernia with possible inflammatory changes as detai led above, please correlate clinically. No other definite acute abnormality seen in the abdomen or th e pelvis. Suspected severe hepatic steatosis. The described segment 4 hepatic lesion could represent area of fo nato fat sparing however other hepatic focal lesion cannot be excluded. Further elective MRI assessmen t can be considered. Other incidental findings as described above.
[2021-09-26 11:27] VITALS: BP 138/83; PULSE 68
== END 2021-09-26 11:26 | disposition home or self-care (01) ==
LOC: EC 08:34
DX: K43.9 Ventral hernia without obstruction or gangrene (principal); F12.90 Cannabis use, unspecified, uncomplicated
CPT/HCPCS: 36415; 80053; 82150; 83690; 85025; 85610; 85730; 81001; 74177; 99284; Q9967

== ENCOUNTER 2021-10-16 21:09 | Emergency (ER) | payer BC ==
[2021-10-16 21:26] VITALS: BP 124/79; PULSE 90; RESP 18; TEMP 98.2
--- NOTE | 2021-10-16 22:02 | XR ---
EXAMINATION TYPE: XR foot complete RT DATE OF EXAM: 10/16/2021 COMPARISON: NONE HISTORY: Pain TECHNIQUE: 3 views FINDINGS: Metatarsals are intact. The toes are intact. There is mild spurring at the first MP joint. There is plantar calcaneal mild spurring. IMPRESSION: No acute abnormality of the right foot. No fracture. Mild degenerative changes.
--- NOTE | 2021-10-16 22:02 | XR ---
EXAMINATION TYPE: XR ankle limited RT DATE OF EXAM: 10/16/2021 COMPARISON: NONE HISTORY: Pain TECHNIQUE: 2 views FINDINGS: Ankle mortise is anatomic. I see no fracture nor dislocation. Joint spaces are normal. IMPRESSION: Negative right ankle exam. No fracture.
[2021-10-16] MEDS ORDERED: Acetaminophen-Codeine 300-30mg TAB PO STA (22:03)
[2021-10-16] MEDS ORDERED: ACET/COD 300 MG/30 MG STARTER PACK 6 TAB BTL PO STA (22:03)
--- NOTE | 2021-10-16 22:03 | ED ---
Lower Extremity Injury HPI - General Chief Complaint: Extremity Injury, Lower Stated Complaint: Right Foot Injury Time Seen by Provider: 10/16/21 21:37 Source: patient, RN notes reviewed, old records reviewed Mode of arrival: ambulatory Limitations: no limitations - History of Present Illness Initial Comments: This is a 46 male to the emergency department for evaluation. Patient's coming in for right ankle injury. Patient having wet ankle pain and right foot pain. Patient fell off a ladder landing on right foot. Fine which is persistent throughout the day now and wants to be evaluated for causes of this pain. Patient has known or other injuries from falling off a ladder. No significant medical history takes no medications MD Complaint: ankle injury, foot injury -: hour(s) Injury: Ankle: Right, Foot: Right Type of Injury: blunt Place: home Severity: moderate Severity scale (1-10): 7 Improves With: nothing Worsens With: weight bearing Context: fall, direct blow Other Symptoms: other (0) Associated Symptoms: swelling Treatments Prior to Arrival: cold therapy - Related Data Home Medications Medication Instructions Recorded Confirmed No Known Home Medications 09/26/21 09/26/21 Allergies Allergy/AdvReac Type Severity Reaction Status Date / Time hydrocodone [From Lortab] Allergy Rash/Hives Verified 10/16/21 21:23 Review of Systems ROS Statement: Those systems with pertinent positive or pertinent negative responses have been documented in the HPI. ROS Other: All systems not noted in ROS Statement are negative. Past Medical History Past Medical History: Asthma Additional Past Medical History / Comment(s): occ asthma flare ups, brobchitis History of Any Multi-Drug Resistant Organisms: None Reported Past Surgical History: Hernia Repair, Orthopedic Surgery Additional Past Surgical History / Comment(s): back surgery Past Anesthesia/Blood Transfusion Reactions: No Reported Reaction Past Psychological History: Depression Smoking Status: Never smoker Past Alcohol Use History: None Reported Past Drug Use History: Marijuana - Past Family History Father Family Medical History: Hypertension Mother Family Medical History: Cancer, Hypertension Additional Family Medical History / Comment(s): UTERINE CANCER General Exam Limitations: no limitations General appearance: alert, in no apparent distress Head exam: Present: atraumatic, normocephalic, normal inspection Eye exam: Present: normal appearance, PERRL, EOMI. Absent: scleral icterus, conjunctival injection, periorbital swelling ENT exam: Present: normal exam, mucous membranes moist Neck exam: Present: normal inspection. Absent: tenderness, meningismus, lymphadenopathy Respiratory exam: Present: normal lung sounds bilaterally. Absent: respiratory distress, wheezes, rales, rhonchi, stridor Cardiovascular Exam: Present: regular rate, normal rhythm, normal heart sounds. Absent: systolic murmur, diastolic murmur, rubs, gallop, clicks GI/Abdominal exam: Present: soft, normal bowel sounds. Absent: distended, tenderness, guarding, rebound, rigid Extremities exam: Present: normal inspection, full ROM, normal capillary refill, other (Patient does have significant swelling of his right ankle and right foot). Absent: tenderness, pedal edema, joint swelling, calf tenderness Back exam: Present: normal inspection Neurological exam: Present: alert, oriented X3, CN II-XII intact Psychiatric exam: Present: normal affect, normal mood Skin exam: Present: warm, dry, intact, normal color. Absent: rash Course Vital Signs 10/16/21 21:23 Temperature 98.2 F Pulse Rate 90 Respiratory 18 Rate Blood Pressure 124/79 O2 Sat by Pulse 96 Oximetry - Reevaluation(s) Reevaluation #1: 10/16/21 Medical record is reviewed Reevaluation #2: 10/12/21 Patient symptoms are improved Reevaluation #3: 10/12/21 Patient informed results and questions answered Medical Decision Making - Medical Decision Making 46 male to the emergency department for evaluation of right foot contusion injury and sprain. Patient has pain control, patient feels improved able to ambulate and can be discharged home - Radiology Data Radiology results: report reviewed (X-ray right ankle right foot negative for acute disease), image reviewed Disposition Clinical Impression: Left ankle pain, Fall, Left ankle sprain Disposition: HOME SELF-CARE Condition: Good Instructions (If sedation given, give patient instructions): Ankle Sprain (ED), Foot Contusion (ED) Is patient prescribed a controlled substance at d/c from ED?: No Referrals: Marie Cervantes MD [Primary Care Provider] - 1-2 days Time of Disposition: 22:00
[2021-10-16] MEDS: KETOROLAC 15 MG/ML 1 ML VIAL IM STA ×2 (22:11→22:16)
== END 2021-10-16 22:22 | disposition home or self-care (01) ==
LOC: EC 21:09
DX: S93.402A Sprain of unspecified ligament of left ankle, initial encounter (principal); J45.909 Unspecified asthma, uncomplicated; Z88.5 Allergy status to narcotic agent; W11.XXXA Fall on and from ladder, initial encounter; Y92.009 Unspecified place in unspecified non-institutional (private) residence as the place of occurrence of the external cause
CPT/HCPCS: 73600; 73630; 99283; 96372; J1885

== ENCOUNTER 2023-05-27 21:25 | Emergency (ER) | payer BC ==
[2023-05-27 21:39] VITALS: RESP 18; TEMP 97.7
--- NOTE | 2023-05-27 22:04 | ED ---
Upper Extremity HPI - General Chief Complaint: Extremity Injury, Upper Stated Complaint: rt shoulder pain Time Seen by Provider: 05/27/23 21:43 Source: patient Mode of arrival: ambulatory Limitations: no limitations - History of Present Illness Initial Comments: 7-year-old male presents to the ER today for complaint of pain in his right shoulder. Patient reports he had similar pain a couple of weeks ago but rested and it seemed to get better. Patient states that today he was trying to work on a toilet but needed to be removed in reinstalled. While doing this job he developed progressive worsening pain in his right arm to the point where he had pain with any movement. Pain is throughout the entire shoulder girdle but seems to be more on the anterior surface. Pain with any movement, somewhat improved with rest. Less pain with passive movement but still painful. No fevers. No previous significant injuries or surgeries to the shoulder the patient does report episodes of similar pain that resolved spontaneously. MD Complaint: Injury to:: right, shoulder -: hour(s) - Related Data Home Medications Medication Instructions Recorded Confirmed No Known Home Medications 09/26/21 09/26/21 Allergies Allergy/AdvReac Type Severity Reaction Status Date / Time hydrocodone [From Lortab] Allergy Rash/Hives Verified 10/16/21 21:23 Review of Systems ROS Statement: Those systems with pertinent positive or pertinent negative responses have been documented in the HPI. ROS Other: All systems not noted in ROS Statement are negative. Past Medical History Past Medical History: Asthma Additional Past Medical History / Comment(s): occ asthma flare ups, brobchitis History of Any Multi-Drug Resistant Organisms: None Reported Past Surgical History: Hernia Repair, Orthopedic Surgery Additional Past Surgical History / Comment(s): back surgery Past Anesthesia/Blood Transfusion Reactions: No Reported Reaction Past Psychological History: Depression Smoking Status: Never smoker Past Alcohol Use History: None Reported Past Drug Use History: Marijuana - Past Family History Father Family Medical History: Hypertension Mother Family Medical History: Cancer, Hypertension Additional Family Medical History / Comment(s): UTERINE CANCER General Exam Limitations: no limitations General appearance: alert Head exam: Present: atraumatic Eye exam: Present: PERRL Respiratory exam: Absent: respiratory distress GI/Abdominal exam: Absent: distended Right Shoulder Exam: Present: tenderness. Absent: swelling, laceration, ecchymosis, deformity, crepitus, dislocation, erythema, tenderness over AC joint Upper Arm exam: Present: normal inspection Elbow exam: Present: normal inspection Course Vital Signs 05/27/23 21:30 Temperature 97.7 F Pulse Rate 86 Respiratory 18 Rate Blood Pressure 160/127 O2 Sat by Pulse 94 L Oximetry Medical Decision Making - Medical Decision Making Was pt. sent in by a medical professional or institution ([facility], COMMERCIAL DRIVER, urgent care, hospital, or longterm...) When possible be specific @ -No Did you speak to anyone other than the patient for history (EMS, parent, family, police, friend...)? What history was obtained from this source @ -No Did you review nursing and triage notes (agree or disagree)? Why? @ -I reviewed and agree with nursing and triage notes Were old charts reviewed (outside hosp., previous admission, EMS record, old EKG, old radiological studies, urgent care reports/EKG's, longterm records)? Report findings @ -No old charts were reviewed Differential Diagnosis (chest pain, altered mental status, abdominal pain women, abdominal pain men, vaginal bleeding, weakness, fever, dyspnea, syncope, headache, dizziness, GI bleed, back pain, seizure, CVA, palpatations, mental health)? @ -Differential includes dislocation, overuse injury, tendinitis, rotator cuff injury EKG interpreted by me (3pts min.). @ -As above X-rays interpreted by me (1pt min.). @ -No dislocation CT interpreted by me (1pt min.). @ -None done U/S interpreted by me (1pt. min.). @ -None done What testing was considered but not performed or refused? (CT, X-rays, U/S, labs)? Why? @ -None What meds were considered but not given or refused? Why? @ -Morphine was discussed but the patient drove himself here does not want any narcotics needs to drive home. Agreeable to plan for Tylenol 3 for home. Did you discuss the management of the patient with other professionals (professionals i.e. [facility], COMMERCIAL DRIVER, lab, RT, psych nurse, high school social studies teacher, associate professor of forestry, teacher, plain clothes police officer, case finisher)? Give summary @ -No Was smoking cessation discussed for >3mins.? @ -No Was critical care preformed (if so, how long)? @ -No Were there social determinants of health that impacted care today? How? (Homelessness, low income, unemployed, alcoholism, drug addiction, transportation, low edu. Level, literacy, decrease access to med. care, halfway, rehab)? @ -No Was there de-escalation of care discussed even if they declined (Discuss DNR or withdrawal of care, Hospice)? DNR status @ -No What co-morbidities impacted this encounter? (DM, HTN, Smoking, COPD, CAD, Cancer, CVA, ARF, Chemo, Hep., AIDS, mental health diagnosis, sleep apnea, morbid obesity)? @ -None Was patient admitted / discharged? Hospital course, mention meds given and route, prescriptions, significant lab abnormalities, going to OR and other pertinent info. @ -Discharge The patient was seen and evaluated x-ray was obtained there is no obvious injury or dislocation. Discussed with the patient that he likely has an overuse injury but needs additional imaging such as MRI if he has persistent pain to rule out rotator cuff injury. Patient comfortable plan for supportive care. He received IM Toradol starter pack of Tylenol 3 and a sling to use as needed. Patient was provided with contact information for [facility] for [facility] follow-up. Undiagnosed new problem with uncertain prognosis? @ -No Drug Therapy requiring intensive monitoring for toxicity (Heparin, Nitro, Insulin, Cardizem)? @ -No Were any procedures done? @ -No Diagnosis/symptom? @ -Right shoulder pain Acute, or Chronic, or Acute on Chronic? @ -Default Uncomplicated (without systemic symptoms) or Complicated (systemic symptoms)? @ -Default Side effects of treatment? @ -No Exacerbation, Progression, or Severe Exacerbation? @ -No Poses a threat to life or bodily function? How? (Chest pain, [place], [place], pneumonia, PE, COPD, DKA, ARF, appy, cholecystitis, CVA, Diverticulitis, Homicidal, Suicidal, threat to staff... and all critical care pts) @ -No Disposition Clinical Impression: Right shoulder pain Disposition: HOME SELF-CARE Is patient prescribed a controlled substance at d/c from ED?: No Referrals: Marie Cervantes MD [Primary Care Provider] - 1-2 days [facility] [Provider Group] - 1-2 days
--- NOTE | 2023-05-27 22:08 | XR ---
EXAMINATION TYPE: XR shoulder complete RT DATE OF EXAM: 05/27/2023 9:59 PM CLINICAL INDICATION:Male, 47 years old with history of pain; COMPARISON: None TECHNIQUE: XR shoulder complete RT; examined in AP, internally rotated and scapular Y projections. FINDINGS: No evidence of acute osseous pathology, joint dislocation, or soft tissue swelling. The remaining po rtions of the visualized chest are unremarkable. IMPRESSION: No acute osseous pathology.
[2023-05-27] MEDS: ACET/COD 300 MG/30 MG STARTER PACK 6 TAB BTL PO STA (23:12)
[2023-05-27] MEDS: KETOROLAC 15 MG/ML 1 ML VIAL IM STA (23:12)
[2023-05-27 23:23] VITALS: BP 152/91; PULSE 71
== END 2023-05-27 23:18 | disposition home or self-care (01) ==
LOC: EC 21:25
DX: M25.511 Pain in right shoulder (principal); J45.909 Unspecified asthma, uncomplicated; F12.90 Cannabis use, unspecified, uncomplicated; Z86.59 Personal history of other mental and behavioral disorders; Z88.5 Allergy status to narcotic agent
CPT/HCPCS: 73030; 99283; 96372; J1885

== ENCOUNTER 2023-06-01 13:33 | Emergency (ER) | payer BC ==
[2023-06-01] MEDS: KETOROLAC 15 MG/ML 1 ML VIAL IM STA (14:33)
[2023-06-01] MEDS: HYDROmorphone 1 MG/ML 1 ML SYRINGE IM STA ×3 (14:33→17:38)
[2023-06-01] MEDS: ORPHENADRINE 30 MG/ML 2 ML VIAL IM STA (14:34)
--- NOTE | 2023-06-01 14:47 | ED ---
Upper Extremity HPI - General Chief Complaint: Extremity Injury, Upper Stated Complaint: Right Shoulder pain Time Seen by Provider: 06/01/23 14:03 Source: patient, RN notes reviewed Mode of arrival: ambulatory Limitations: no limitations - History of Present Illness Initial Comments: This is a 47-year-old male who presents to the emergency department for right shoulder pain. Symptoms started 5 days ago. He was evaluated here at that time and had negative imaging. He was given medications in the emergency department for his pain, which was helpful when he was here, but states that the symptoms are getting worse and he is now barely able to move the arm. He was removing a toilet when the pain started, which he attributes to flaring up the shoulder. Denies any additional injuries. He was given a starter pack for Tylenol #3, which has not been effective. He does have an appointment with Dr. Sheppard, orthopedics, in 3 days. MD Complaint: Injury to:: right, shoulder - Related Data Previous Rx's Medication Instructions Recorded Naproxen Sodium 550 mg PO BID #20 tablet 06/01/23 methocarbamoL [Robaxin-750] 1,500 mg PO TID PRN #30 tab 06/01/23 traMADol HCl [Ultram] 50 mg PO Q6HR PRN 3 Days #12 tab 06/01/23 Allergies Allergy/AdvReac Type Severity Reaction Status Date / Time hydrocodone [From Lortab] Allergy Rash/Hives Verified 06/01/23 14:01 Review of Systems ROS Statement: Those systems with pertinent positive or pertinent negative responses have been documented in the HPI. ROS Other: All systems not noted in ROS Statement are negative. Past Medical History Past Medical History: Asthma Additional Past Medical History / Comment(s): occ asthma flare ups, brobchitis History of Any Multi-Drug Resistant Organisms: None Reported Past Surgical History: Hernia Repair, Orthopedic Surgery Additional Past Surgical History / Comment(s): back surgery Past Anesthesia/Blood Transfusion Reactions: No Reported Reaction Past Psychological History: Depression Smoking Status: Never smoker Past Alcohol Use History: None Reported Past Drug Use History: Marijuana - Past Family History Father Family Medical History: Hypertension Mother Family Medical History: Cancer, Hypertension Additional Family Medical History / Comment(s): UTERINE CANCER General Exam Limitations: no limitations General appearance: alert, in distress Head exam: Present: atraumatic, normocephalic, normal inspection Respiratory exam: Present: normal lung sounds bilaterally. Absent: respiratory distress, wheezes, rales, rhonchi, stridor Cardiovascular Exam: Present: regular rate, normal rhythm, normal heart sounds. Absent: systolic murmur, diastolic murmur, rubs, gallop, clicks Extremities exam: Present: other (Tenderness to palpation over the right shoulder. ROM limited by pain. No deformities. 2+ radial pulses.) Neurological exam: Present: alert, oriented X3, CN II-XII intact Psychiatric exam: Present: normal affect, normal mood Skin exam: Present: warm, dry, intact, normal color. Absent: rash Course Vital Signs 06/01/23 06/01/23 06/01/23 13:58 15:27 17:24 Temperature 98.2 F 98.1 F 98.1 F Pulse Rate 82 77 65 Respiratory 18 20 16 Rate Blood Pressure 142/82 133/94 132/81 O2 Sat by Pulse 97 97 98 Oximetry Medical Decision Making - Medical Decision Making This is a 47 year old male who presents to the emergency department for right shoulder pain. Was pt. sent in by a medical professional or institution? @ -No Did you speak to anyone other than the patient for history? @ -No Did you review nursing and triage notes? @ -Yes, and I agree, it is accurate with regards to the patient's symptoms. Were old charts reviewed? @ -X-ray of the right shoulder from 05/27/23 demonstrating no acute process. Differential Diagnosis? @ -Differential Musculoskeletal: Muscular strain, contusion, ligament sprain, fracture, arthritis, septic arthritis, bursitis, cellulitis, muscle spasm, nerve compression, DVT, arterial occlusion, herpes zoster, electrolyte abnormality, tumor.... This is not meant to be in all inclusive list EKG interpreted by me (3pts min.)? @ -Not obtained X-rays interpreted by me (1pt min.)? @ -Not obtained CT interpreted by me (1pt min.)? @ -CT scan of the right shoulder obtained. My interpretation identifies no acute fractures. U/S interpreted by me (1pt. min.)? @ -Not obtained What testing was considered but not performed? (CT, X-rays, U/S, labs)? Why? @ -None What meds were considered but not given? Why? @ -None Did you discuss the management of the patient with other professionals? @ -No Did you reconcile home meds? @ -No Was smoking cessation discussed for >3mins.? @ -No Was critical care preformed (if so, how long)? @ -No Were there social determinants of health that impacted care today? How? (Homelessness, low income, unemployed, alcoholism, drug addiction, transportation, low edu. Level, literacy, decrease access to med. care, nursing home, rehab)? @ -No Was there de-escalation of care discussed even if they declined? (Discuss DNR or withdrawal of care, Hospice)? @ -No What co-morbidities impacted this encounter? (DM, HTN, Smoking, COPD, CAD, Cancer, CVA, Hep., AIDS, mental health diagnosis, sleep apnea, morbid obesity)? @ -None Was patient admitted / discharged? @ -Discharged. Patient initially given Toradol, Norflex, and Dilaudid. However, he had no improvement symptoms and was essentially unable to move the arm. Given the severity of his pain and no relief with pain medication, CT scan of the shoulder was obtained for further evaluation. This revealed mild to moderate degenerative changes of the right shoulder. There is also suspected supraspinatus tendinosis. We were able to get the patient's pain to a manageable level and he felt stable for discharge home. Given the severity of his symptoms I was willing to give him a prescription for a 3 day course of tramadol as well as naproxen and Robaxin. Dosing instructions reviewed. Patient will otherwise follow up with orthopedics as scheduled on Sunday. Undiagnosed new problem with uncertain prognosis? @ -None Drug Therapy requiring intensive monitoring for toxicity (Heparin, Nitro, Insulin, Cardizem)? @ -None Were any procedures done? @ -None Diagnosis/symptom? @ -Right shoulder pain Acute, or Chronic, or Acute on Chronic? @ -Acute Uncomplicated (without systemic symptoms) or Complicated (systemic symptoms)? @ -Uncomplicated Side effects of treatment? @ -None Exacerbation, Progression, or Severe Exacerbation] @ -Not applicable Poses a threat to life or bodily function? @ -This is limiting his ability to use the right arm. Return precautions reviewed in depth, the patient is instructed to return to the emergency department with any new, worsening, or concerning symptoms. Patient verbalized understanding. This case was discussed in detail with the attending ED physician, Dr. Soares. Presentation, findings, and treatment plan discussed in detail as well. - Radiology Data Radiology results: report reviewed, image reviewed Disposition Clinical Impression: Right shoulder pain Disposition: HOME SELF-CARE Instructions (If sedation given, give patient instructions): Shoulder Pain (ED) Additional Instructions: Return to the emergency department with any new, worsening, or concerning symptoms. Take the naproxen twice daily with Tylenol. Do not take ibuprofen or any other anti-inflammatories such as ibuprofen with the Naproxen. Take the Roba mary as 1-2 tablets up to 3-4 times daily. Take the [place] sparingly when your pain is the most severe. Be aware that both the [place] and Robaxin may make you drowsy. Follow up with orthopedics as scheduled. Prescriptions: Naproxen Sodium 550 mg PO BID #20 tablet methocarbamoL [Robaxin-750] 1,500 mg PO TID PRN #30 tab PRN Reason: Pain traMADol HCl [Ultram] 50 mg PO Q6HR PRN 3 Days #12 tab PRN Reason: Pain Is patient prescribed a controlled substance at d/c from ED?: Yes When asked, does pt state using other controlled substances?: No If prescribed controlled substance>3 days was MAPS reviewed?: Prescribed <3 Days Referrals: Marie Cervantes MD [Primary Care Provider] - 1-2 days Time of Disposition: 17:26
[2023-06-01 15:44] VITALS: TEMP 98.1
--- NOTE | 2023-06-01 17:13 | CT ---
EXAMINATION TYPE: CT shoulder RT wo con CT DLP: 1123.6 mGycm, Automated exposure control for dose reduction was used. DATE OF EXAM: 06/01/2023 4:51 PM COMPARISON: None CLINICAL INDICATION:Male, 47 years old with history of Intractable shoulder pain; PHH, right shoulder pain TECHNIQUE: Axial images were obtained of the CT shoulder RT wo con, Additional coronal and sagittal r eformatted images and soft tissue and bone window were obtained for review. 3-D reconstruction was cr eated on a separate workstation. Contrast used: mL of , (None if empty) Oral contrast used: (None if empty) FINDINGS: Mild degeneration changes of the acromioclavicular joint with subchondral cystic change of the distal clavicle. The glenoid and humerus are in appropriate position with mild degeneration block es. Minimal subchondral cystic change of the glenoid. Supraspinatus insertional subchondral cystic ch harry on the humeral head. There is no evidence of fracture, subluxation, or dislocation. No signific ant soft tissue swelling or joint effusion is identified. No focal muscular atrophy or edema is ident ified. No radiopaque foreign body identified. IMPRESSION: 1. No evidence of fracture. 2. 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 Consider further evaluation of the s oft tissues with MRI. 3. Suspected supraspinatus tendinosis.
[2023-06-01] MEDS: DEXAMETHASONE SOD PHOSPHATE 10 MG/ML 1 ML VIAL IM STA (17:37)
[2023-06-01 17:39] VITALS: BP 132/81; PULSE 65; RESP 16
[2023-06-01] MEDS: traMADol 50 MG STARTER PACK 3 TAB BTL PO STA (17:39)
== END 2023-06-01 18:17 | disposition home or self-care (01) ==
LOC: EC 13:33
DX: M25.511 Pain in right shoulder (principal); J45.909 Unspecified asthma, uncomplicated; F12.90 Cannabis use, unspecified, uncomplicated; Z86.59 Personal history of other mental and behavioral disorders; Z88.5 Allergy status to narcotic agent
CPT/HCPCS: 73200; 99284; 96372 ×6; J1100; J2360; J1170; J1885

== ENCOUNTER → 2024-06-17 | Outpatient (CLI) | payer BC | END | disposition home or self-care (01) | LOC: LABWHC1 10:58 | PROVIDERS: ATTEND Internal Medicine | DX: E03.9 Hypothyroidism, unspecified (principal) | CPT/HCPCS: 36415; 84443 ==